=== PATIENT | female | born 1935 | race Caucasian/White ===

== ENCOUNTER 2016-09-11 14:18 | Inpatient (IN) ==
[2016-09-11] MEDS ORDERED: ZOFRAN 4 MG/2 ML IVP STA (14:34)
--- NOTE | 2016-09-11 14:42 | ED.PDOC ---
General ED Provider: Dr. KATHRYN CORDOVA JR Chief Complaint: Diarrhea Stated Complaint: states she has been having diarrhea and vomiting for 1 week. has tried lomotil and immodium without relief. gets nausea at night. last emesis was last night. [End]95.9 71 18 92% 131/77 htn thy chf afib pacemaker. tight aortic stenosis per dr martinez Time Seen by Physician: 14:35 Mode of Arrival: Walk-In Information Source: Patient Exam Limitations: No limitations Primary Care Provider: KEVIN MARTINEZ Nursing and Triage Documentation Reviewed and Agree: No Review of Systems - Review Of Systems Constitutional: Reports: Malaise Cardiac: Reports: Lightheadedness GI: Reports: Abdominal pain, Diarrhea, Nausea, Vomiting : Reports: No symptoms Musculoskeletal: Reports: No symptoms Skin: Reports: No symptoms Neurological: Reports: No symptoms Endocrine: Reports: No symptoms Hematologic/Lymphatic: Reports: No symptoms All Other Systems: Other Past Medical History - Past Medical History Previously Healthy: No Endocrine: Reports: None Cardiovascular: Reports: A-Fib Respiratory: Reports: None Hematological: Reports: Anemia Gastrointestinal: Reports: None Genitourinary: Reports: None Neuro/Psych: Reports: None Musculoskeletal: Reports: None Cancer: Reports: None Last Menstrual Period: none - Surgical History General Surgical History: Reports: Hysterectomy, Pacemaker, Orthopedic ( fracture neck with surgery), Other (Cataract surgery ) - Family History Family History: Reports: None - Social History Smoking Status: Never smoker Hx Substance Use: No Alcohol Screening: None Physical Exam - Physical Exam Appearance: Well-appearing Ill-appearing: Mild Pain Distress: Mild Eyes: SUMEET, EOMI, Conjunctiva clear ENT: Ears normal, Nose normal, Oropharynx normal Neck: Supple Respiratory: Airway patent, Breath sounds clear, Breath sounds equal, Respirations nonlabored Cardiovascular: RRR, Pulses normal, No rub, No murmur GI/: Soft, Nontender, No masses, Bowel sounds normal, No Organomegaly Musculoskeletal: Normal strength, ROM intact, No edema, No calf tenderness Skin: Warm, Dry, Normal color Neurological: Sensation intact, Motor intact, Reflexes intact, Cranial nerves intact, Alert, Oriented Psychiatric: Affect appropriate, Mood appropriate Interpretation - Radiology Interpretation Radiology Interpretation By: Radiologist Radiology Results: Negative Exam Interpreted: CT Scan (ABDOMEN) Critical Care Note - Critical Care Note Total Time (mins): 0 Course - Course Hematology/Chemistry: 09/11/16 14:45 09/11/16 14:45 Orders, Labs, Meds: Lab Review 09/11/16 09/11/16 14:45 15:17 WBC 11.65 H RBC 4.97 Hgb 15.1 Hct 44.0 MCV 88.5 MCH 30.4 MCHC 34.3 RDW Coeff of Megan 13.1 Plt Count 195 Immature Gran % (Auto) 0.2 Neut % (Auto) 63.5 Lymph % (Auto) 22.5 [place] % (Auto) 5.7 Eos % (Auto) 7.8 H Baso % (Auto) 0.3 Immature Gran # (Auto) 0.0 Neut # 7.4 H Lymph # 2.6 [place] # 0.7 Eos # 0.9 H Baso # 0.0 PT 25.5 H INR 2.48 Sodium 129 L Potassium 4.3 Chloride 97 L Carbon Dioxide 24 Anion Gap 12.3 BUN 13 Creatinine 1.00 Estimated GFR (MDRD) 53.00 BUN/Creatinine Ratio 13.00 Glucose 116 H Calcium 9.3 Total Bilirubin 1.71 H AST 25 ALT 10 L Alkaline Phosphatase 58 Total Protein 7.1 Albumin 3.7 Globulin 3.4 Albumin/Globulin Ratio 1.09 Amylase 42 Lipase 58 Urine Color Yellow Urine Clarity Slightly Urine pH 5.5 Ur Specific [place] 1.015 Urine Protein Negative Urine Glucose (UA) Negative Urine Ketones Negative Urine Blood 2+ Urine Nitrite Negative Urine Bilirubin Negative Urine Urobilinogen 0.2 Ur Leukocyte Esterase Negative Urine Microscopic RBC 2-5 Urine Microscopic WBC 5-10 Ur Squamous Epith Cells Not Reportable Urine Bacteria Trace Digoxin 0.99 L H. pylori IgG Antibody Positive Orders Category Date Time Status ADMIT PATIENT INPATIENT .TO [facility] [place] (NON-MONITORED ADMISSION 09/11/16 17: 42 Ordered BED) ACTIVITY .Early Mobilization for VTE Prevention CARE 09/11/16 17:42 Ordered C-DIFF MONITORING (NURSING) BID CARE 09/11/16 14:33 Active INTAKE & OUTPUT Q8HR CARE 09/11/16 17:42 Ordered VITAL SIGNS Q4HR CARE 09/11/16 17:42 Ordered CARDIAC DIET DIETARY 09/11/16 Breakfast Ordered ED IV/MEDIPORT/POWERPORT .ONCE EMERGENCY 09/11/16 14:33 Active AMYLASE Stat LAB 09/11/16 14:45 Completed C. DIFFICILE Stat LAB 09/11/16 14:33 Uncollected CBC W/ AUTO DIFF DAILY@0600 LAB 09/12/16 06:00 Ordered CBC W/ AUTO DIFF DAILY@0600 LAB 09/13/16 06:00 Ordered CBC W/ AUTO DIFF DAILY@0600 LAB 09/14/16 06:00 Ordered CBC W/ AUTO DIFF DAILY@0600 LAB 09/15/16 06:00 Ordered CBC W/ AUTO DIFF DAILY@0600 LAB 09/16/16 06:00 Ordered CBC W/ AUTO DIFF DAILY@0600 LAB 09/17/16 06:00 Ordered CBC W/ AUTO DIFF DAILY@0600 LAB 09/18/16 06:00 Ordered CBC W/ AUTO DIFF DAILY@0600 LAB 09/19/16 06:00 Ordered CBC W/ AUTO DIFF DAILY@0600 LAB 09/20/16 06:00 Ordered CBC W/ AUTO DIFF DAILY@0600 LAB 09/21/16 06:00 Ordered CBC W/ AUTO DIFF DAILY@0600 LAB 09/22/16 06:00 Ordered CBC W/ AUTO DIFF DAILY@0600 LAB 09/23/16 06:00 Ordered CBC W/ AUTO DIFF DAILY@0600 LAB 09/24/16 06:00 Ordered CBC W/ AUTO DIFF DAILY@0600 LAB 09/25/16 06:00 Ordered CBC W/ AUTO DIFF DAILY@0600 LAB 09/26/16 06:00 Ordered CBC W/ AUTO DIFF DAILY@0600 LAB 09/27/16 06:00 Ordered CBC W/ AUTO DIFF DAILY@0600 LAB 09/28/16 06:00 Ordered CBC W/ AUTO DIFF DAILY@0600 LAB 09/29/16 06:00 Ordered CBC W/ AUTO DIFF DAILY@0600 LAB 09/30/16 06:00 Ordered CBC W/ AUTO DIFF DAILY@0600 LAB 10/01/16 06:00 Ordered CBC W/ AUTO DIFF Stat LAB 09/11/16 14:45 Completed COMPREHENSIVE METABOLIC PANEL DAILY@0600 LAB 09/12/16 06:00 Ordered COMPREHENSIVE METABOLIC PANEL DAILY@0600 LAB 09/13/16 06:00 Ordered COMPREHENSIVE METABOLIC PANEL DAILY@0600 LAB 09/14/16 06:00 Ordered COMPREHENSIVE METABOLIC PANEL DAILY@0600 LAB 09/15/16 06:00 Ordered COMPREHENSIVE METABOLIC PANEL DAILY@0600 LAB 09/16/16 06:00 Ordered COMPREHENSIVE METABOLIC PANEL DAILY@0600 LAB 09/17/16 06:00 Ordered COMPREHENSIVE METABOLIC PANEL DAILY@0600 LAB 09/18/16 06:00 Ordered COMPREHENSIVE METABOLIC PANEL DAILY@0600 LAB 09/19/16 06:00 Ordered COMPREHENSIVE METABOLIC PANEL DAILY@0600 LAB 09/20/16 06:00 Ordered COMPREHENSIVE METABOLIC PANEL DAILY@0600 LAB 09/21/16 06:00 Ordered COMPREHENSIVE METABOLIC PANEL DAILY@0600 LAB 09/22/16 06:00 Ordered COMPREHENSIVE METABOLIC PANEL DAILY@0600 LAB 09/23/16 06:00 Ordered COMPREHENSIVE METABOLIC PANEL DAILY@0600 LAB 09/24/16 06:00 Ordered COMPREHENSIVE METABOLIC PANEL DAILY@0600 LAB 09/25/16 06:00 Ordered COMPREHENSIVE METABOLIC PANEL DAILY@0600 LAB 09/26/16 06:00 Ordered COMPREHENSIVE METABOLIC PANEL DAILY@0600 LAB 09/27/16 06:00 Ordered COMPREHENSIVE METABOLIC PANEL DAILY@0600 LAB 09/28/16 06:00 Ordered COMPREHENSIVE METABOLIC PANEL DAILY@0600 LAB 09/29/16 06:00 Ordered COMPREHENSIVE METABOLIC PANEL DAILY@0600 LAB 09/30/16 06:00 Ordered COMPREHENSIVE METABOLIC PANEL DAILY@0600 LAB 10/01/16 06:00 Ordered COMPREHENSIVE METABOLIC PANEL Stat LAB 09/11/16 14:45 Completed DIGOXIN Stat LAB 09/11/16 14:45 Completed H. PYLORI SCREEN Stat LAB 09/11/16 14:45 Completed LIPASE Stat LAB 09/11/16 14:45 Completed PT WITH INR DAILY@0600 LAB 09/12/16 06:00 Ordered PT WITH INR DAILY@0600 LAB 09/13/16 06:00 Ordered PT WITH INR DAILY@0600 LAB 09/14/16 06:00 Ordered PT WITH INR DAILY@0600 LAB 09/15/16 06:00 Ordered PT WITH INR DAILY@0600 LAB 09/16/16 06:00 Ordered PT WITH INR DAILY@0600 LAB 09/17/16 06:00 Ordered PT WITH INR DAILY@0600 LAB 09/18/16 06:00 Ordered PT WITH INR DAILY@0600 LAB 09/19/16 06:00 Ordered PT WITH INR DAILY@0600 LAB 09/20/16 06:00 Ordered PT WITH INR DAILY@0600 LAB 09/21/16 06:00 Ordered PT WITH INR DAILY@0600 LAB 09/22/16 06:00 Ordered PT WITH INR DAILY@0600 LAB 09/23/16 06:00 Ordered PT WITH INR DAILY@0600 LAB 09/24/16 06:00 Ordered PT WITH INR DAILY@0600 LAB 09/25/16 06:00 Ordered PT WITH INR DAILY@0600 LAB 09/26/16 06:00 Ordered PT WITH INR DAILY@0600 LAB 09/27/16 06:00 Ordered PT WITH INR DAILY@0600 LAB 09/28/16 06:00 Ordered PT WITH INR DAILY@0600 LAB 09/29/16 06:00 Ordered PT WITH INR DAILY@0600 LAB 09/30/16 06:00 Ordered PT WITH INR DAILY@0600 LAB 10/01/16 06:00 Ordered PT WITH INR Stat LAB 09/11/16 14:45 Completed URINALYSIS C & S IF INDICATED Stat LAB 09/11/16 15:17 Completed 0.9 % Sodium Chloride [Saline Flush] MEDS 09/11/16 14:33 Active 1 syr IVF PRN PRN Alprazolam [Xanax] MEDS 09/11/16 17:45 Ordered 1 mg PO BID PRN Digoxin MEDS 09/11/16 17:45 Ordered 250 mcg PO MOTUTHFRSA Diphenoxylate HCl/Atropine [Lomotil] MEDS 09/11/16 17:45 Ordered 2.5 mg PO Q8H PRN Furosemide [Lasix Tab] MEDS 09/12/16 06:30 Ordered 40 mg PO QDAC Hydrocodone Bit/Acetaminophen [Surrency 5-325] MEDS 09/11/16 17:45 Ordered 1 tab PO TID PRN Magnesium Carbonate/Al Hydrox [Gaviscon Es Tablet Chew] MEDS 09/11/16 17:45 Ordered 1 each PO DAILY PRN Meclizine HCl [Antivert] MEDS 09/11/16 17:45 Ordered 25 mg PO TID PRN Omeprazole [Prilosec] MEDS 09/12/16 06:30 Ordered 20 mg PO QDAC Ondansetron HCl/Pf [Zofran 4 mg/2 ml] MEDS 09/11/16 14:34 Discontinued 4 mg IVP ONCE STA Potassium Chloride [K-Dur] MEDS 09/12/16 09:00 Ordered 20 meq PO DAILY Propranolol HCl [Inderal] MEDS 09/11/16 21:00 Ordered 40 mg PO BID Propylthiouracil MEDS 09/12/16 09:00 Ordered 50 mg PO DAILY Sodium Chloride 0.9% [Sodium Chloride] 1,000 ml MEDS 09/11/16 16:46 Active IV 125 mls/hr Sodium Chloride 0.9% [Sodium Chloride] 1,000 ml MEDS 09/11/16 18:00 Ordered IV 75 mls/hr Valsartan [Diovan] MEDS 09/12/16 09:00 Ordered 80 mg PO DAILY Warfarin Sodium [Coumadin] MEDS 09/12/16 17:00 Ordered 3 mg PO QPM RESUSCITATION STATUS Routine OTHERS 09/11/16 17:[address] ABDOMEN/PELVIS WO CONTRAST Stat RADS 09/11/16 16:38 Completed Medications Generic Name Dose Route Start Last Admin Trade Name Freq PRN Reason Stop Dose Admin Acetaminophen/Hydrocodone Bitart 1 tab 09/11/16 17:45 Surrency 5-325 PO TID PRN PAIN Alprazolam 1 mg 09/11/16 17:45 Xanax PO BID PRN Anxiety Diphenoxylate HCl/Atropine tab 09/11/16 17:45 Lomotil PO Q8H PRN Diarrhea Furosemide 40 mg 09/12/16 06:30 Lasix Tab PO QDAC ISAURA Sodium Chloride 1,000 mls @ 125 mls/hr 09/11/16 16:46 09/11/16 16:50 Sodium Chloride IV 09/12/16 00:45 125 mls/hr .Q8H STA Administration Sodium Chloride 1,000 mls @ 75 mls/hr 09/11/16 18:00 Sodium Chloride IV .[id number] ISAURA Meclizine HCl 25 mg 09/11/16 17:45 Antivert PO TID PRN Vertigo Non-Formulary Medication 1 each 09/11/16 17:45 Magnesium Carbonate/Al Hydrox [Gaviscon Es Tablet Chew] PO DAILY PRN Heartburn Non-Formulary Medication 250 mcg 09/11/16 17:45 Digoxin PO MOTUTHFRSA ISAURA Omeprazole 20 mg 09/12/16 06:30 Prilosec PO QDAC SIAURA Potassium Chloride 20 meq 09/12/16 09:00 K-Dur PO DAILY ISAURA Propranolol HCl 40 mg 09/11/16 21:00 Inderal PO BID ISAURA Propylthiouracil 50 mg 09/12/16 09:00 Propylthiouracil PO DAILY ISAURA Sodium Chloride 1 syr 09/11/16 14:33 Saline Flush IVF PRN PRN To flush IV Valsartan 80 mg 09/12/16 09:00 Diovan PO DAILY ISAURA Warfarin Sodium 3 mg 09/12/16 17:00 Coumadin PO QPM ISAURA Discontinued Medications Generic Name Dose Route Start Last Admin Trade Name Freq PRN Reason Stop Dose Admin Ondansetron HCl 4 mg 09/11/16 14:34 09/11/16 15:34 Zofran 4 Mg/2 Ml IVP 09/11/16 14:35 Not Given ONCE STA Vital Signs: Temp Pulse Resp BP Pulse Ox 09/11/16 14:18 95.9 F L 71 18 131/77 92 L Departure - Departure Time of Disposition: 17:41 Disposition: ADMITTED INPATIENT Discharge Problem: Gastroenteritis, Dehydration, moderate Condition: Stable Pt referred to PMD for follow-up: Yes Allergies/Adverse Reactions: Allergies ciprofloxacin [From Cipro] Adverse Reaction (Verified 09/11/16 14:24) ciprofloxacin HCl [From Cipro] Adverse Reaction (Verified 09/11/16 14:24) propoxyphene HCl [From Darvon] Adverse Reaction (Verified 09/11/16 14:24) Home Medications: Ambulatory Orders Alprazolam [Xanax] 1 mg PO BID PRN 04/26/13 Digoxin [Lanoxin] 250 mcg PO MOTUTHFRSA 04/26/13 Furosemide [Lasix Tab] 40 mg PO QDAC 04/26/13 Potassium Chloride [K-Dur] 20 meq PO DAILY 04/26/13 Propranolol HCl [Inderal] 40 mg PO BID 04/26/13 Valsartan [Diovan] 80 mg PO DAILY 04/26/13 Propylthiouracil [Propylthiouracil] 50 mg PO DAILY 04/17/14 Hydrocodone/Acetaminophen [Surrency 5-325 Tablet] 1 tab PO TID PRN 05/23/14 Meclizine HCl [Antivert] 25 mg PO TID PRN #30 tablet 05/24/14 Warfarin Sodium [Coumadin] 3 mg PO QPM 07/17/16 Diphenoxylate HCl/Atropine [Lomotil] 2.5 mg PO Q8H PRN 09/11/16 Magnesium Carbonate/Al Hydrox [Gaviscon Es Tablet Chew] 1 each PO DAILY PRN Omeprazole [Prilosec] 20 mg PO QDAC 09/11/16 Ondansetron HCl [Zofran] 4 mg PO Q6H PRN 09/11/16
[2016-09-11 14:55] LABS: BASOPHILS % (AUTO) 0.3 % (0.0-3.0); EOSINOPHILS # (AUTO) 0.9 K/ul (0.0-0.7); EOSINOPHILS % (AUTO) 7.8 % (0.0-7.0); HEMOGLOBIN 15.1 g/dl (12.0-16.0); IMMATURE GRANULOCYTE % (AUTO) 0.2 % (0.0-5.0); LYMPHOCYTES # (AUTO) 2.6 K/uL (0.60-3.4); LYMPHOCYTES % (AUTO) 22.5 (10.0-50.0); MEAN CORPUSCULAR HEMOGLOBIN 30.4 pg (27.0-31.0); MEAN CORPUSCULAR HGB CONC 34.3 (31.8-35.4); MEAN CORPUSCULAR VOLUME 88.5 fl (81.0-99.0); MONOCYTES # (AUTO) 0.7 K/uL (0.4-2.0); MONOCYTES % (AUTO) 5.7 (0-10); NEUTROPHILS # (AUTO) 7.4 K/ul (2.0-6.9); NEUTROPHILS % (AUTO) 63.5; PLATELET COUNT 195 10^3/uL (140-440); RED BLOOD COUNT 4.97 10^6/ul (4.20-5.40); WHITE BLOOD COUNT 11.65 K/ul (4.6-10.2)
[2016-09-11 15:05] LABS: H. PYLORI ANTIBODY POSITIVE (NEGATIVE); H.PYLORI INTERNAL QC INTERNAL QC VALID
[2016-09-11 15:16] LABS: ALBUMIN 3.7 g/dL (3.4-5.0); ALBUMIN/GLOBULIN RATIO 1.09; ANION GAP 12.3; BILIRUBIN,TOTAL 1.71 mg/dL (0.00-1.20); CALCIUM 9.3 mg/dL (8.2-10.2); POTASSIUM 4.3 mmol/L (3.5-5.10); TOTAL PROTEIN 7.1 g/dL (5.8-8.1)
[2016-09-11 15:21] LABS: BILIRUBIN,URINE Negative (NEGATIVE); KETONES,URINE Negative (NEGATIVE); LEUKOCYTE ESTERASE ,URINE Negative (NEGATIVE); NITRITE,URINE Negative (NEGATIVE); PH,URINE 5.5 (5-9); PROTEIN,URINE Negative (NEGATIVE); URINE, BLOOD 2+ (NEGATIVE)
[2016-09-11 15:26] LABS: ADD URINE MICROSCOPIC YES
[2016-09-11 15:27] LABS: BACTERIA,URINE TRACE (NOT PRESENT)
[2016-09-11 16:15] LABS: PROTHROMBIN TIME 25.5 SEC (9.3-11.0)
[2016-09-11] MEDS ORDERED: SODIUM CHLORIDE 1,000 ML IV STA (16:46)
--- NOTE | 2016-09-11 17:37 | CT ---
EXAM: CT scan abdomen pelvis without contrast HISTORY: Abdominal pain COMPARISON: CT scan abdomen pelvis 02/12/2015 FINDINGS: Contiguous axial images obtained through the abdomen pelvis without contrast utilizing 5- mm collimation. Sagittal and coronal reconstructions were imaged and reviewed There is a stable le ft 10 mm nodule within the inferior lingular segment which merits continued follow-up. The heart is enlarged without pericardial effusion. There is calcification of the mitral valve annulus. There is a dual lead pacemaker. The gallbladder is moderately distended and contains dependent sludge or gallstones.. The liver, pancreas, spleen and adrenal glands have normal unenhanced CT appearance.. Scarring is noted about the upper pole right kidney. Nonobstructive renal calculi are noted bilate rally, largest of which measures8.8 mm on the right and the 10 mm on the left Dense atherosclerotic changes are seen involving the aorta without aneurysm formation. There has been prior hysterectomy .. There is no evidence of free fluid or inflammatory changes. There is lumbar levoscoliosis with extensive degenerative changes throughout the visualized thoracolumbar spine and bilateral hips IMPRESSION: Cardiomegaly without pericardial effusion. Scarring upper pole right kidney with bilateral nonobstructive nephrolithiasis. ASVD without aneurysm. Dilated gallbladder which contains dependent stones or sludge.. Ultrasound may be helpful to exclud e acute cholecystitis.
[2016-09-11] MEDS ORDERED: XANAX PO PRN (17:45)
[2016-09-11] MEDS ORDERED: AL HYDROX PO PRN (17:45)
[2016-09-11] MEDS ORDERED: ANTIVERT PO PRN (17:45)
[2016-09-11] MEDS ORDERED: LOMOTIL PO PRN (17:45)
[2016-09-11] MEDS ORDERED: MAGNESIUM CARBONATE PO PRN (17:45)
[2016-09-11] MEDS ORDERED: [UNRECOGNIZED DRUG - OTHER] PO PRN (17:45)
[2016-09-11] MEDS ORDERED: DIGOXIN 250 MCG PO SCH (17:45)
[2016-09-11] MEDS ORDERED: SODIUM CHLORIDE 1,000 ML IV SCH ×2 (18:00→19:29)
[2016-09-11] MEDS ORDERED: SODIUM CHLORIDE 200 ML IV STA (18:10)
[2016-09-11] MEDS ORDERED: LANOXIN ONE (21:45)
[2016-09-11] MEDS: INDERAL PO SCH (21:49)
[2016-09-11] MEDS ORDERED: COUMADIN PO STA (22:03)
[2016-09-12] MEDS: NORCO 5-325 PO PRN ×2 (03:18→14:39)
[2016-09-12] MEDS: LASIX TAB PO SCH ×2 (05:56→05:58)
[2016-09-12] MEDS ORDERED: PRILOSEC PO SCH (06:30)
[2016-09-12 06:32] LABS: BASOPHILS % (AUTO) 0.4 % (0.0-3.0); EOSINOPHILS # (AUTO) 0.7 K/ul (0.0-0.7); EOSINOPHILS % (AUTO) 9.5 % (0.0-7.0); HEMATOCRIT 40.1 % (37.0-47.0); HEMOGLOBIN 13.3 g/dl (12.0-16.0); IMMATURE GRANULOCYTE % (AUTO) 0.4 % (0.0-5.0); LYMPHOCYTES # (AUTO) 2.3 K/uL (0.60-3.4); LYMPHOCYTES % (AUTO) 29.9 (10.0-50.0); MEAN CORPUSCULAR HEMOGLOBIN 29.8 pg (27.0-31.0); MEAN CORPUSCULAR HGB CONC 33.2 (31.8-35.4); MEAN CORPUSCULAR VOLUME 89.7 fl (81.0-99.0); MONOCYTES # (AUTO) 0.4 K/uL (0.4-2.0); MONOCYTES % (AUTO) 5.8 (0-10); NEUTROPHILS # (AUTO) 4.1 K/ul (2.0-6.9); PLATELET COUNT 129 10^3/uL (140-440); RED BLOOD COUNT 4.47 10^6/ul (4.20-5.40); WHITE BLOOD COUNT 7.59 K/ul (4.6-10.2)
[2016-09-12 06:42] LABS: PROTHROMBIN TIME 27.4 SEC (9.3-11.0)
[2016-09-12 06:54] LABS: ALBUMIN 3.3 g/dL (3.4-5.0); ALBUMIN/GLOBULIN RATIO 1.22; ANION GAP 12.1; BILIRUBIN,TOTAL 1.61 mg/dL (0.00-1.20); CALCIUM 8.8 mg/dL (8.2-10.2); CREATININE 0.83 mg/dL (0.60-1.30); POTASSIUM 4.1 mmol/L (3.5-5.10)
[2016-09-12 06:55] LABS: BUN/CREATININE RATIO 13.25
[2016-09-12] MEDS ORDERED: LANOXIN PO SCH ×2 (07:17→09:00)
[2016-09-12] MEDS ORDERED: COUMADIN PO SCH ×2 (07:30→17:00)
[2016-09-12] MEDS ORDERED: K-DUR PO SCH (09:00)
[2016-09-12] MEDS ORDERED: PROPYLTHIOURACIL PO SCH (09:00)
[2016-09-12] MEDS ORDERED: DIOVAN PO SCH (09:00)
[2016-09-12] MEDS: INDERAL PO SCH (10:55)
[2016-09-12 18:40] VITALS: BP 113/89; TEMP 96.7
--- NOTE | 2016-09-14 13:41 | HP ---
DATE OF SERVICE: 09/11/16 CHIEF COMPLAINT: Diarrhea and vomiting. HISTORY OF PRESENT ILLNESS: This is a 81-year-old female who has been having diarrhea for one week, three to four times a day and vomiting for one week. Vomitus consisted of only food material so the patient was started on tea and crackers. Diarrhea watery, nonbloody, feeling weak. No abdominal pain, no fever or chills. She has been taking Lomotil and Imodium, did not help so came to the emergency room. While the patient was evaluated, Dr. Villagran came and saw the patient and thought the patient needed IV antibiotics and fluids. Dr. Tipton examined the patient. White count was 11.65. Sodium 129. Chloride 97. BUN and creatinine normal. CT of abdomen and pelvis was normal. At that time, the patient is admitted to the hospital for IV fluids and for acute gastroenteritis and dehydration. REVIEW OF SYSTEMS: CONSTITUTIONAL: Weakness, tiredness. No fever, no chills. HEENT: Normal. ENDOCRINE: No weight gain; no weight loss. CVS: No chest pain. No PND, no orthopnea. The patient has shortness of breath from severe critical aortic stenosis. RESPIRATORY: No cough, no congestion. No hemoptysis. GI: Diarrhea, vomiting. No abdominal pain. No melena. : No hematuria. No polyuria. MUSCULOSKELETAL: No joint swelling. PSYCHIATRIC: Not anxious. No depression. No suicidal thoughts. No homicidal thoughts. SKIN: Intact, no open lesions. PAST MEDICAL HISTORY: 1. Aortic stenosis, severe. 2. Heart cath status post stent. 3. Permanent pacemaker. 4. COPD. 5. Emphysema. 6. Osteoarthritis. 7. Anxiety. PAST SURGICAL HISTORY: 1. Hysterectomy 2. Cataract surgery 3. Rotator cuff repair 4. Left elbow broken 5. Ovarian cyst removed PERSONAL HISTORY: Quit smoking at age 52. No alcohol or drugs. Independent of ADLs. FAMILY HISTORY: Significant for heart problems and diabetes. MEDICATIONS: (Home) 1. Diovan 2. Xanas 3. Lasix 4. Potassium 5. Inderal 6. Lanoxin 7. Propylthiouracil 8. [place] 9. Antivert 10. Coumadin 11. Prilosec 12. Lomotil 13. Zofran 14. Magnesium Carbonate ALLERGIES: CIPRO, PROPOXYPHENE PHYSICAL EXAMINATION: V/S: BP 131/77, respiratory rate 18, heart rate 71, saturation 92%, temperature 95.9. HEENT: Atraumatic, normocephalic. Mucosa dry. NECK: Supple. No JVD, no bruit. No lymphadenopathy. No thyromegaly. HEART: Systolic murmur positive. S1, S2 normal. No ascites. LUNGS: Decreased entry. Clear to auscultation. No rales or rhonchi. ABDOMEN: Soft, nontender. Bowel sounds are active. No CVA tenderness. No rigidity or guarding. EXTREMITIES: No cyanosis, clubbing or pedal edema. MUSCULOSKELETAL: Normal joints, no swelling. NEUROLOGIC: The patient is awake, alert, oriented times three. SKIN: Intact; no open lesions. LYMPHATIC: No lymph nodes palpable. LABS: White count 11.65, hemoglobin 15.1, hematocrit 44.0, platelet count 195. PT/INR 25.5 and INR 2.48. Sodium 129, potassium 4.3, chloride 97, bicarb 13, creatinine 1.0, glucose 116. Total bilirubin 1.71. Urine 2+ blood. Digoxin level 0.199. H. Pylori positive. ASSESSMENT: 1. ACUTE GASTROENTERITIS, MOSTLY VIRAL WITH HISTORY OF SEVERE AORTIC STENOSIS 2. HYPERTENSION 3. DYSLIPIDEMIA 4. PERMANENT PACEMAKER 5. ATRIAL FIBRILLATION ON COUMADIN PLAN: 1. Admit the patient to the regular floor. 2. Diet - cardiac diet. 3. Activity - as tolerated. 4. IV fluids at 40 mL/hr. TIME SPENT: More than 60 minutes today. MTDD
--- NOTE | 2016-09-15 15:06 | PN ---
DATE OF SERVICE: 09/12/16 SUBJECTIVE: The patient was admitted with the nausea and vomiting. Since admission the patient had no nausea or vomiting. The patient is tolerating the regular diet fine. Ready to go home. I did tell her that if the patient doesn't have any vomiting or diarrhea by evening the patient can go home. REVIEW OF SYSTEMS: CONSTITUTIONAL: No fever, no chills. HEENT: Normal. ENDOCRINE: No weight gain, no weight loss. CVS: No angina symptoms. No CHF symptoms. No palpitations. No atypical chest pain for CAD. Shortness of breath is stable. No PND, no orthopnea. RESPIRATORY: No cough, no hemoptysis. GI: No nausea, no vomiting. No abdominal pain. : No hematuria. No polyuria. MUSCULOSKELETAL:. No joint swelling. PSYCHIATRIC: Not anxious. No depression. No suicidal thoughts. No homicidal thoughts. SKIN: Intact. No rash. PHYSICAL EXAMINATION: V/S: Blood pressure 117/68, respiratory rate 16, heart rate 67 and temperature 97.4, HEENT: Normocephalic, atraumatic. Ears, eyes, nose and throat normal. NECK: Supple. No JVD, no carotid bruit. No lymphadenopathy. LUNGS: Clear to auscultation. No rales or rhonchi. HEART: S1, S2 normal. No S3. Systolic murmur positive., gallop or regurgitation. ABDOMEN: Soft, nontender. Bowel sounds active. No rigidity. No rebound or guarding. No CVA tenderness. EXTREMITIES: No clubbing, cyanosis or pedal edema. MUSCULOSKELETAL: No joint swelling. NEUROLOGIC: Awake, alert, oriented times three. No focal deficit. LYMPHATIC: No lymph nodes palpable. SKIN: Intact. LABS: WBC 7.59, hgb 13.3, hct 40.1, plt count 129, sodium 133, potassium 4.1m chloride 103, bicarb 22, BUN 11, creatinine 0.83 and bilirubin is 1.61 which is steady. ASSESSMENT: 1. Acute gastroenteritis 2. History of severe aortic stenosis 3. Permanent pacemaker 4. Coronary artery disease 5. Hypertension 6. Dyslipidemia PLAN: 1. Regular diet 2. Activity as tolerated 3. I&O's Will follow the patient by evening. If the patient is stable can go home. TIME SPENT: More than 30 minutes MTDD
--- NOTE | 2016-09-17 14:31 | DS ---
DATE OF SERVICE: 09/12/16 FINAL DIAGNOSIS: 1. ACUTE VIRAL GASTROENTERITIS, WHICH HAS RESOLVED 2. DEHYDRATION 3. HISTORY OF SEVERE AORTIC STENOSIS 4. HYPERTENSION 5. PERMANENT PACEMAKER 6. CONGESTIVE HEART FAILURE 7. DYSLIPIDEMIA 8. HYSTERECTOMY 9. OSTEOARTHRITIS PLAN: 1. Discharge the patient home. 2. Continue taking the Zofran and Imodium prn. 3. Please be on a clear liquid diet and a soft diet for two to three days. 4. Resume the rest of the home medications. HOME MEDICATIONS: Diovan 80 mg daily Xanax 0.5 mg twice daily prn Lasix 40 mg three times per week K-Dur 20 mEq daily Inderal 40 mg twice daily Lanoxin 250 mcg Wednesday, Wednesday, , Wednesday and Wednesday Propylthiouracil 50 mg daily Hydrocodone/Acetaminophen 5/325 mg three times daily prn Meclizine 23 mg three times daily prn Coumadin 3 mg daily Prilosec 20 mg daily Lomotil 2.5 mg every 8 hours prn Zofran 4 mg every 6 hours prn Gaviscon ES chew one daily prn DISEASE SPECIFIC EDUCATION: About diarrhea, dehydration and gastroenteritis was discussed. HOSPITAL COURSE: Irene Farrell who is a 81 year old female with severe aortic stenosis came to the emergency room having diarrhea and vomiting for one week. She was seen by Dr. Tipton. Sodium was 129, chloride 97, white count was 11.65, afebrile. CT of the abdomen and pelvis was negative. Dr. Villagran saw the patient in the emergency room and ordered the admission for the IV fluids. She was admitted with IV fluids and Zofran. The patient was feeling better and did not have any nausea or vomiting during the hospital stay. By the next day, today, the patient wanted to go home and as the patient did not have any vomiting and had two episodes of scanty diarrhea per nurse, Sherry and the patient blames it on having veggies with her diet. Otherwise, she was feeling good and wanted to go home. The patient has the Zofran and Imodium at home and she can take them. Otherwise, no other problems at the given time with the patient. Time spent with the patient is more than 40 minutes today. OLLIE
== END 2016-09-12 19:55 | disposition home or self-care (01) | DRG 392 ==
LOC: ED 14:18 → MEDSURG B 18:14
PROVIDERS: ADMIT Emergency Medicine; ATTEND Emergency Medicine
DX: A08.4 Viral intestinal infection, unspecified (principal); E86.0 Dehydration; I35.0 Nonrheumatic aortic (valve) stenosis; I48.91 Unspecified atrial fibrillation; I25.10 Atherosclerotic heart disease of native coronary artery without angina pectoris; I10 Essential (primary) hypertension; E78.5 Hyperlipidemia, unspecified; Z79.01 Long term (current) use of anticoagulants; Z79.899 Other long term (current) drug therapy; Z95.0 Presence of cardiac pacemaker; K52.9 Noninfective gastroenteritis and colitis, unspecified
CPT/HCPCS: 36415; 80053; 80162; 81001; 82150; 83690; 85025; 85610; 86677; 96360; 99284

== ENCOUNTER 2016-09-24 15:03 | Inpatient (IN) ==
[2016-09-24 15:55] VITALS: BMI 27.3
[2016-09-24] MEDS ORDERED: ZOFRAN 4 MG/2 ML IVP PRN (15:59)
[2016-09-24] MEDS ORDERED: MAGNESIUM CARBONATE PO PRN (16:17)
[2016-09-24] MEDS ORDERED: [UNRECOGNIZED DRUG - OTHER] PO PRN (16:17)
[2016-09-24] MEDS ORDERED: AL HYDROX PO PRN (16:17)
[2016-09-24] MEDS ORDERED: ANTIVERT PO PRN (16:17)
[2016-09-24] MEDS ORDERED: DIGOXIN 250 MCG PO SCH (16:30)
[2016-09-24 16:31] LABS: BASOPHILS # (AUTO) 0.1 K/uL (0-0.2); BASOPHILS % (AUTO) 0.6 % (0.0-3.0); EOSINOPHILS # (AUTO) 0.6 K/ul (0.0-0.7); EOSINOPHILS % (AUTO) 4.7 % (0.0-7.0); HEMATOCRIT 43.7 % (37.0-47.0); HEMOGLOBIN 15.5 g/dl (12.0-16.0); IMMATURE GRANULOCYTE % (AUTO) 0.4 % (0.0-5.0); LYMPHOCYTES # (AUTO) 3.1 K/uL (0.60-3.4); LYMPHOCYTES % (AUTO) 23.7 (10.0-50.0); MEAN CORPUSCULAR HGB CONC 35.5 (31.8-35.4); MEAN CORPUSCULAR VOLUME 87.4 fl (81.0-99.0); MONOCYTES # (AUTO) 0.9 K/uL (0.4-2.0); MONOCYTES % (AUTO) 6.8 (0-10); NEUTROPHILS # (AUTO) 8.5 K/ul (2.0-6.9); NEUTROPHILS % (AUTO) 63.8; PLATELET COUNT 163 10^3/uL (140-440); WHITE BLOOD COUNT 13.27 K/ul (4.6-10.2)
[2016-09-24] MEDS: LOMOTIL PO SCH ×3 (16:32→20:15)
[2016-09-24] MEDS: PROTONIX IV 40 MG in SODIUM CHLORIDE 100 ML IV SCH (16:34)
[2016-09-24] MEDS ORDERED: MYLANTA SUSP PO PRN (16:34)
[2016-09-24] MEDS: XANAX PO SCH ×2 (16:35→20:15)
[2016-09-24] MEDS: DEXTROSE 5%-1/2NS IV SOLUTION 1,000 ML IV SCH (16:35)
[2016-09-24 16:59] LABS: PROTHROMBIN TIME 20.5 SEC (9.3-11.0)
[2016-09-24] MEDS: NORCO 5-325 PO PRN (17:09)
[2016-09-24 17:12] LABS: ALBUMIN 3.5 g/dL (3.4-5.0); ANION GAP 16.2; BILIRUBIN,TOTAL 3.14 mg/dL (0.00-1.20); BUN/CREATININE RATIO 34.73; CALCIUM 9.3 mg/dL (8.2-10.2); CREATININE 0.95 mg/dL (0.60-1.30); DIGOXIN 1.04 ng/mL (1.00-2.00); POTASSIUM 4.2 mmol/L (3.5-5.10)
[2016-09-24] MEDS: COUMADIN PO SCH (17:58)
[2016-09-24] MEDS: INDERAL PO SCH (20:14)
[2016-09-25 02:34] LABS: ADD URINE MICROSCOPIC YES; BILIRUBIN,URINE 1+ (NEGATIVE); KETONES,URINE Negative (NEGATIVE); LEUKOCYTE ESTERASE ,URINE Negative (NEGATIVE); NITRITE,URINE Negative (NEGATIVE); PH,URINE 5.5 (5-9); PROTEIN,URINE Trace (NEGATIVE); URINE, BLOOD 3+ (NEGATIVE)
[2016-09-25 02:43] LABS: BACTERIA,URINE 2+ (NOT PRESENT)
[2016-09-25] MEDS: DEXTROSE 5%-1/2NS IV SOLUTION 1,000 ML IV SCH ×2 (05:15→18:19)
[2016-09-25] MEDS: LASIX TAB PO SCH ×2 (05:32→08:27)
[2016-09-25 07:54] LABS: BASOPHILS # (AUTO) 0.1 K/uL (0-0.2); BASOPHILS % (AUTO) 0.6 % (0.0-3.0); EOSINOPHILS # (AUTO) 1.2 K/ul (0.0-0.7); EOSINOPHILS % (AUTO) 11.9 % (0.0-7.0); HEMATOCRIT 35.7 % (37.0-47.0); HEMOGLOBIN 12.6 g/dl (12.0-16.0); IMMATURE GRANULOCYTE % (AUTO) 0.3 % (0.0-5.0); LYMPHOCYTES # (AUTO) 2.9 K/uL (0.60-3.4); LYMPHOCYTES % (AUTO) 28.9 (10.0-50.0); MEAN CORPUSCULAR HEMOGLOBIN 31.1 pg (27.0-31.0); MEAN CORPUSCULAR HGB CONC 35.3 (31.8-35.4); MEAN CORPUSCULAR VOLUME 88.1 fl (81.0-99.0); MONOCYTES # (AUTO) 0.7 K/uL (0.4-2.0); MONOCYTES % (AUTO) 6.6 (0-10); NEUTROPHILS # (AUTO) 5.2 K/ul (2.0-6.9); NEUTROPHILS % (AUTO) 51.7; PLATELET COUNT 126 10^3/uL (140-440); RED BLOOD COUNT 4.05 10^6/ul (4.20-5.40)
[2016-09-25 07:57] LABS: PROTHROMBIN TIME 22.9 SEC (9.3-11.0)
[2016-09-25 08:12] LABS: ALBUMIN 2.8 g/dL (3.4-5.0); ANION GAP 10.6; BILIRUBIN,TOTAL 1.7 mg/dL (0.00-1.20); BUN/CREATININE RATIO 37.77; CALCIUM 8.1 mg/dL (8.2-10.2); CREATININE 0.9 mg/dL (0.60-1.30); POTASSIUM 3.6 mmol/L (3.5-5.10); TOTAL PROTEIN 5.6 g/dL (5.8-8.1)
[2016-09-25] MEDS: NON-FORMULARY MEDICATION (Potassium Chloride [K-Dur] 20 MEQ) PO SCH ×22 (08:26)
[2016-09-25] MEDS: INDERAL PO SCH ×2 (08:29→21:25)
[2016-09-25] MEDS: PROPYLTHIOURACIL PO SCH (08:31)
--- NOTE | 2016-09-25 08:50 | DI ---
EXAM: Chest two views HISTORY: Cough COMPARISON: 03/16/2016 TECHNIQUE: Two views of the chest were performed FINDINGS: There is left-sided cardiac pacer. No airspace consolidation. There is chronic coarsening of the interstitial markings. There is left basilar nodular density. There is no pleural effusion o r pneumothorax. The heart is mildly enlarged, unchanged. There are mitral annular calcifications. The mediastinal contour is normal, noting atherosclerosis. There are no acute abnormalities of the bones. IMPRESSION: 1. Chronic coarsening of the interstitial markings. It would be difficult to exclude mild pulmonar y vascular congestion. No airspace consolidation. 2. Left basilar nodular density likely corresponds with pulmonary nodule described on prior CTs.
[2016-09-25] MEDS: LOMOTIL PO SCH ×3 (09:03→21:24)
[2016-09-25] MEDS: DIOVAN PO SCH (09:04)
[2016-09-25] MEDS: XANAX PO SCH ×2 (09:05→21:25)
[2016-09-25] MEDS: PROTONIX IV 40 MG in SODIUM CHLORIDE 100 ML IV SCH (09:07)
[2016-09-25] MEDS: LANOXIN PO SCH (09:08)
[2016-09-25] MEDS: NORCO 5-325 PO PRN ×3 (09:19→21:30)
--- NOTE | 2016-09-25 09:22 | US ---
EXAM: Abdominal ultrasound limited HISTORY: Abdominal pain/gastroenteritis COMPARISON: CT abdomen pelvis 09/11/2016 TECHNIQUE: Sonographic and limited Doppler evaluation of the right upper quadrant was performed. FINDINGS: The liver is heterogeneous in echogenicity and measures enlarged at 18.7 cm. The portal vein is patent. The gallbladder demonstrates layering stones and sludge with no Carrillo's sign. The gallbladder wall measures mildly enlarged at 0.5. Common bile duct is unremarkable and measures 0.5 cm in diameter. The pancreas is not identified due to overlying bowel gas. Right kidney is incomp letely evaluated due to bowel gas, but measures 8.2 x 4.2 x 3.7 cm with cortical thickness of 1 cm. IMPRESSION: 1. Heterogeneous appearance of the liver which measures mildly enlarged may represent hepatic disea se/process versus atypical hepatic steatosis. 2. Layering stones and sludge without pericholecystic fluid with gallbladder wall at upper limit of normal. This is nonspecific and may be related to multiple etiologies including subacute cholecyst itis.
--- NOTE | 2016-09-25 09:50 | HP ---
DATE OF SERVICE: 09/24/16 REASON FOR HOSPITALIZATION/HISTORY OF PRESENT ILLNESS: Three days gastroenteritis type symptoms. Even water goes thru. No nausea for 1 1/2 days. Zofran helped. Diarrhea-liquid 6 to 10 times a day. Abdominal cramping off and on bilateral periumbilical area. REVIEW OF SYSTEMS: CONSTITUTIONAL: No fever, Fatigue. HEENT: No sinus drainage, no sore throat. RESPIRATORY: No cough, no congestion. CARDIOVASCULAR: No atypical chest pain for coronary artery disease. No angina , CHF symptoms, palpitations or shortness of breath. GASTROINTESTINAL: No melena. Abdominal pain. No GERD. GENITOURINARY: No hematuria, no prostatism, no polyuria. DIRECTOR FOOD SAFETY: No blackout, no dizziness, no headache, no double vision. MUSCULOSKELETAL: Osteoarthritis pain, no joint swelling. ENDOCRINE: Weight loss, no weight gain. SKIN: Not dry, no rash. PSYCHIATRIC: Anxious, no depression, no suicidal thoughts, no homicidal thoughts. SOCIAL HISTORY: Marital Status: . Lives alone. Five children; 4 alive and one . Alcohol Usage: No. Tobacco Usage: No. FAMILY HISTORY: Father , Mother decreased, one brother and one sister alive. MEDICAL AND SURGICAL HISTORY: Pacemaker Fracture C- Spine Neck Surgery Hysterectomy Cataract Obesity COPD Hypertension Atrial fibrillation Hypothyroidism Aortic stenosis Gallbladder dysfunction MEDICATIONS: Diovan 80mg PO daily Xanax 0.5mg PO twice a day PRN Lasix 40mg PO MOWEFR K-Dur 20meq PO daily Inderal 40mg PO twice a day Lanoxin 250mcg PO MOTETHFRSA Propylthiouracil 50mg PO daily Hurley 5-325 PO three times a day PRN Antivert 25mg PO three times a day PRN Coumadin 3mg PO daily Prilosec 20mg QDAC Zofran 4mg PO Q 6 hours PRN Gaviscon ES tablet chew one each PO daily PRN Lotrisone cream apply to the affected and surrounding areas of skin Fish oil take two tablets PO twice a day Calcium PO daily ALLERGIES: Cipro Darvon PHYSICAL EXAMINATION: V/S: pulse 90, blood pressure 118/60, temperature 98.8 and pulse ox 97%. GENERAL APPEARANCE: Oriented times three. HEENT: Normal. NECK: No JVP, no bruits. RESPIRATORY: Lungs are clear. CARDIOVASCULAR: S1, S2, no S3, III/ systolic murmur. No cyanosis, clubbing. No ascites. GI/ABDOMEN: No tenderness. Bowel sounds are active. EXTREMITIES: edema, pulses +1, equal. DIRECTOR FOOD SAFETY: Deep tendon reflexes, sensory, motor and gait all normal. RECTAL/PELVIC/PROSTATE: . SKIN: Dry. Skin Turgor is normal. ASSESSMENT: 1. Acute gastroenteritis/Dehydrations 2. Obesity 3. COPD 4. Hypertension 5. Atrial fibrillation 6. Hyperthyroidism 7. Aortic stenosis 8. Pacemaker 9. Neck surgery with fall 10. Gallbladder dysfunction PLAN: 1. Admit 2. Diet-soft and avoid milk products 3. Ultrasound of RUQ and Biliary tree 4. 1,000 cc D5 1/2 normal saline 12 hourly 5. Daily INR 6. Zofran 4mg IV now and 6 hours for nausea 7. Protonix 40mg IV now and Q 24 hours 8. CBC CMP now and daily AM 9. Hurley 5-325 PO four times a day PRN for pain 10. Xanax 0.5mg PO now and twice a day 11. Lomotil 2.5mg PO now and three times a day x2 days. 12. Stool for C-Diff and culture and sensitivity 13. Lanoxin Level 14. T4 and TSH, Serum amylase and Lipids. 15. Chest x-ray/ EKG today 16. Telemetry 17. Urinalysis 18. Continue all home medications. TIME SPENT: More than 70 minutes. MTDD
--- NOTE | 2016-09-25 12:52 | PCM.PROG ---
Attending Provider: ATTENDING PROVIDER: Dr. KEVIN DRAKE DATE OF SERVICE: 09/25/16 SUBJECTIVE: This 81 year old WHITE/ F was hospitalized 09/24/16. The patient is admitted with gastroenteritis, acute dehydration and abdominal cramping. The patient is feeling better. Appetite has improved. No fever, no chills. No nausea or vomiting. Diarrhea is under control. REVIEW OF SYSTEMS: CONSTITUTIONAL: No night sweats. No fatigue, malaise, lethargy. No fever or chills. HEENT: Eyes: No visual changes. No eye pain. No eye discharge. ENT: No runny nose. No epistaxis. No sinus pain. No odynophagia. No congestion. RESPIRATORY: No cough, no congestion. No hemoptysis. CARDIOVASCULAR: No angina symptoms. No CHF symptoms at the present time. No atypical chest pain for CAD. No palpitations. No shortness of breath. GASTROINTESTINAL: Appetite has improved. No abdominal pain. No nausea or vomiting. Diarrhea is under control. No constipation. No hematemesis. No hematochezia. GENITOURINARY: No urgency. No frequency. No dysuria. No hematuria. No obstructive symptoms. No discharge. No pain. No significant abnormal bleeding. MUSCULOSKELETAL: No musculoskeletal pain; no joint swelling. NEUROLOGICAL: Awake, alert, oriented to time, place and person. No headache. No neck pain. No syncope. No seizures. No dizziness. PSYCHIATRIC: Not anxious. No depression. No suicidal thoughts. No homicidal thoughts. SKIN: No rash. No lesions. No wounds. ENDOCRINE: No unexplained weight loss. No weight gain. HEMATOLOGIC/LYMPHATIC: No anemia. No purpura. No petechiae. No prolonged or excessive bleeding. No palpable lymph nodes. PHYSICAL EXAMINATION: GENERAL: The patient is awake, alert and oriented, lying in bed in no distress. VITAL SIGNS: Temperature 97.4 F, Pulse 64, Respiratory Rate 16, BP 88/52, Pulse Ox 98% HEENT: Head normocephalic, atraumatic. Eyes: Extraocular muscles are intact. Pupils are equal, round and reactive to light and accommodation. Ears: No lesions. Nose appeared normal. Throat: No exudate or erythema. NECK: Supple. No JVD, no carotid bruit. No lymphadenopathy or thyromegaly. LUNGS: Clear to auscultation. Percussion note normal. Chest symmetrical. HEART: S1, S2. Loud systolic murmur is present. No cyanosis or clubbing. No ascites. Pulses: Dorsalis pedis and posterior tibial pulses +1 to +2 both sides. ABDOMEN: Soft. Non-tender. Bowel sounds active. No CVA tenderness. No mass felt. EXTREMITIES: No edema. Full range of motion of all extremities, equal. NEUROLOGIC: No focal deficit. Cranial nerves II through XII are grossly intact. No headache, no double vision or headache. SKIN: Dry. Intact. Turgor-better LYMPHATIC: No palpable lymph nodes/no lymphedema. MUSCULOSKELETAL: Normal joints with no swelling. Muscle tone is normal. LAB REVIEW: 09/24/16 16:25 09/24/16 16:25 09/25/16 02:15: Urine Color Stephani, Urine Clarity Clear, Urine pH 5.5, Ur Specific [place] 1.015, Urine Protein Trace, Urine Glucose (UA) Negative, Urine Ketones Negative, Urine Blood 3+, Urine Nitrite Negative, Urine Bilirubin 1+, Urine Urobilinogen 1.0, Ur Leukocyte Esterase Negative, Urine Microscopic RBC 20 -30, Urine Microscopic WBC 0-2, Ur Squamous Epith Cells 2-5, Urine Bacteria 2+ 09/24/16 16:25: WBC 13.27 H, RBC 5.00, Hgb 15.5, Hct 43.7, MCV 87.4, MCH 31.0, MCHC 35.5 H, RDW Coeff of Megan 13.7, Plt Count 163, Immature Gran % (Auto) 0.4, Neut % (Auto) 63.8, Lymph % (Auto) 23.7, [place] % (Auto) 6.8, Eos % (Auto) 4.7, Baso % (Auto) 0.6, Immature Gran # (Auto) 0.1, Neut # 8.5 H, Lymph # 3.1, [place] # 0.9, Eos # 0.6, Baso # 0.1, PT 20.5 H, INR 1.99, Sodium 134 L, Potassium 4.2, Chloride 96 L, Carbon Dioxide 26, Anion Gap 16.2, BUN 33 H, Creatinine 0.95, Estimated GFR (MDRD) 57.00, BUN/Creatinine Ratio 34.73, Glucose 81 L, Calcium 9.3, Total Bilirubin 3.14 H, AST 41 H, ALT 16, Alkaline Phosphatase 59, Total Protein 7.0, Albumin 3.5, Globulin 3.5, Albumin/Globulin Ratio 1.00, Amylase 60 , Lipase 61, TSH 2.080, Free T4 1.25 H, Digoxin 1.04 ASSESSMENT: 1. Acute gastroenteritis/dehydration likely viral. 2. Stool cultures pending. 3. Continue IV fluids. 4. Symptomatic treatment. 5. The patient has cholelithiasis but doesn't seem to be the active problem; she doesn't want anything done about it. 6. Severe aortic stenosis but does not want any further workup or referral. At the present time, the patient has no symptoms of CHF and/or fluid overload. PLAN: Plan and coordination of the patient's care discussed in the presence of Electro Optical Engineer and nurse. CONDITION: STABLE SCRIBED BY: SHERYL HENSON Paper Cutter scribed while in presence of service performed by Dr. KEVIN DRAKE on 09/25/16 ([id number])
[2016-09-25] MEDS: COUMADIN PO SCH (16:34)
[2016-09-26] MEDS: DEXTROSE 5%-1/2NS IV SOLUTION 1,000 ML IV SCH (06:46)
[2016-09-26 07:32] LABS: BASOPHILS % (AUTO) 0.5 % (0.0-3.0); EOSINOPHILS # (AUTO) 1.1 K/ul (0.0-0.7); EOSINOPHILS % (AUTO) 13.9 % (0.0-7.0); HEMATOCRIT 33.9 % (37.0-47.0); HEMOGLOBIN 11.8 g/dl (12.0-16.0); IMMATURE GRANULOCYTE % (AUTO) 0.4 % (0.0-5.0); LYMPHOCYTES # (AUTO) 2.1 K/uL (0.60-3.4); MEAN CORPUSCULAR HEMOGLOBIN 31.2 pg (27.0-31.0); MEAN CORPUSCULAR HGB CONC 34.8 (31.8-35.4); MEAN CORPUSCULAR VOLUME 89.7 fl (81.0-99.0); MONOCYTES # (AUTO) 0.5 K/uL (0.4-2.0); MONOCYTES % (AUTO) 6.8 (0-10); NEUTROPHILS # (AUTO) 3.8 K/ul (2.0-6.9); NEUTROPHILS % (AUTO) 50.4; PLATELET COUNT 113 10^3/uL (140-440); RED BLOOD COUNT 3.78 10^6/ul (4.20-5.40)
[2016-09-26 07:46] LABS: PROTHROMBIN TIME 29.4 SEC (9.3-11.0)
[2016-09-26 08:09] LABS: ALBUMIN 2.9 g/dL (3.4-5.0); ALBUMIN/GLOBULIN RATIO 1.04; CALCIUM 8.2 mg/dL (8.2-10.2); POTASSIUM 4.2 mmol/L (3.5-5.10); TOTAL PROTEIN 5.7 g/dL (5.8-8.1)
[2016-09-26 08:10] LABS: ANION GAP 13.2; BILIRUBIN,TOTAL 1.09 mg/dL (0.00-1.20)
[2016-09-26] MEDS: NORCO 5-325 PO PRN ×2 (08:54→21:10)
[2016-09-26] MEDS: DIOVAN PO SCH (08:54)
[2016-09-26] MEDS: LANOXIN PO SCH (08:54)
[2016-09-26] MEDS: INDERAL PO SCH ×2 (08:54→21:09)
[2016-09-26] MEDS: PROPYLTHIOURACIL PO SCH (08:56)
[2016-09-26] MEDS: PROTONIX IV 40 MG in SODIUM CHLORIDE 100 ML IV SCH (08:56)
[2016-09-26] MEDS: NON-FORMULARY MEDICATION (Potassium Chloride [K-Dur] 20 MEQ) PO SCH ×44 (08:56→09:04)
[2016-09-26] MEDS: XANAX PO SCH ×2 (08:57→21:10)
[2016-09-26] MEDS: TORADOL IVP SCH (12:45)
[2016-09-26] MEDS: COUMADIN PO SCH (17:28)
[2016-09-27] MEDS: TORADOL IVP SCH ×3 (02:27→20:24)
[2016-09-27 07:45] LABS: BASOPHILS % (AUTO) 0.5 % (0.0-3.0); EOSINOPHILS # (AUTO) 1.5 K/ul (0.0-0.7); EOSINOPHILS % (AUTO) 19.8 % (0.0-7.0); HEMATOCRIT 34.3 % (37.0-47.0); HEMOGLOBIN 11.8 g/dl (12.0-16.0); IMMATURE GRANULOCYTE % (AUTO) 0.3 % (0.0-5.0); LYMPHOCYTES # (AUTO) 1.7 K/uL (0.60-3.4); LYMPHOCYTES % (AUTO) 23.5 (10.0-50.0); MEAN CORPUSCULAR HEMOGLOBIN 31.1 pg (27.0-31.0); MEAN CORPUSCULAR HGB CONC 34.4 (31.8-35.4); MEAN CORPUSCULAR VOLUME 90.3 fl (81.0-99.0); MONOCYTES # (AUTO) 0.3 K/uL (0.4-2.0); MONOCYTES % (AUTO) 4.5 (0-10); NEUTROPHILS # (AUTO) 3.8 K/ul (2.0-6.9); NEUTROPHILS % (AUTO) 51.4; PLATELET COUNT 121 10^3/uL (140-440); WHITE BLOOD COUNT 7.33 K/ul (4.6-10.2)
[2016-09-27 07:58] LABS: PROTHROMBIN TIME 31.8 SEC (9.3-11.0)
[2016-09-27 08:03] LABS: ALBUMIN 2.8 g/dL (3.4-5.0); CALCIUM 8.1 mg/dL (8.2-10.2); POTASSIUM 4.7 mmol/L (3.5-5.10); TOTAL PROTEIN 5.7 g/dL (5.8-8.1)
[2016-09-27 08:04] LABS: ALBUMIN/GLOBULIN RATIO 0.97; ANION GAP 10.7; BILIRUBIN,TOTAL 1.05 mg/dL (0.00-1.20); BUN/CREATININE RATIO 28.33; CREATININE 1.2 mg/dL (0.60-1.30)
[2016-09-27] MEDS ORDERED: TORADOL IVP SCH (09:00)
[2016-09-27] MEDS: PROPYLTHIOURACIL PO SCH (09:43)
[2016-09-27] MEDS: NON-FORMULARY MEDICATION (Potassium Chloride [K-Dur] 20 MEQ) PO SCH ×22 (09:43)
[2016-09-27] MEDS: INDERAL PO SCH ×2 (09:43→20:48)
[2016-09-27] MEDS: XANAX PO SCH ×2 (09:43→20:49)
[2016-09-27] MEDS: DIOVAN PO SCH (09:43)
[2016-09-27] MEDS: NORCO 5-325 PO PRN ×3 (09:44→21:25)
[2016-09-27] MEDS: PROTONIX IV 40 MG in SODIUM CHLORIDE 100 ML IV SCH (10:25)
[2016-09-27] MEDS: COUMADIN PO SCH (17:42)
[2016-09-28] MEDS: LASIX TAB PO SCH (05:36)
[2016-09-28 05:44] LABS: BASOPHILS % (AUTO) 0.5 % (0.0-3.0); EOSINOPHILS # (AUTO) 1.9 K/ul (0.0-0.7); EOSINOPHILS % (AUTO) 24.2 % (0.0-7.0); HEMATOCRIT 34.7 % (37.0-47.0); HEMOGLOBIN 11.8 g/dl (12.0-16.0); IMMATURE GRANULOCYTE % (AUTO) 0.4 % (0.0-5.0); LYMPHOCYTES # (AUTO) 1.9 K/uL (0.60-3.4); LYMPHOCYTES % (AUTO) 24.2 (10.0-50.0); MEAN CORPUSCULAR HEMOGLOBIN 30.8 pg (27.0-31.0); MEAN CORPUSCULAR VOLUME 90.6 fl (81.0-99.0); MONOCYTES # (AUTO) 0.4 K/uL (0.4-2.0); MONOCYTES % (AUTO) 4.7 (0-10); NEUTROPHILS # (AUTO) 3.5 K/ul (2.0-6.9); PLATELET COUNT 116 10^3/uL (140-440); RED BLOOD COUNT 3.83 10^6/ul (4.20-5.40); WHITE BLOOD COUNT 7.65 K/ul (4.6-10.2)
[2016-09-28 05:53] LABS: PROTHROMBIN TIME 26.3 SEC (9.3-11.0)
[2016-09-28 06:08] LABS: ALBUMIN 2.9 g/dL (3.4-5.0); ANION GAP 12.2; BILIRUBIN,TOTAL 0.97 mg/dL (0.00-1.20); BUN/CREATININE RATIO 29.91; CALCIUM 8.4 mg/dL (8.2-10.2); CREATININE 1.17 mg/dL (0.60-1.30); POTASSIUM 5.2 mmol/L (3.5-5.10); TOTAL PROTEIN 5.8 g/dL (5.8-8.1)
[2016-09-28] MEDS: PROTONIX IV 40 MG in SODIUM CHLORIDE 100 ML IV SCH (09:54)
[2016-09-28] MEDS: LANOXIN PO SCH (09:54)
[2016-09-28] MEDS: INDERAL PO SCH (09:54)
[2016-09-28] MEDS: XANAX PO SCH (09:54)
[2016-09-28] MEDS: PROPYLTHIOURACIL PO SCH (09:55)
[2016-09-28] MEDS: DIOVAN PO SCH (09:55)
[2016-09-28] MEDS: TORADOL IVP SCH (10:04)
[2016-09-28] MEDS: NORCO 5-325 PO PRN (10:06)
[2016-09-28 10:23] VITALS: BP 98/55; TEMP 97.9
--- NOTE | 2016-09-28 11:56 | CM.DICTOOL ---
ADMISSION: 09/24/16 15:03 DISCHARGE: 2016 DATE OF SERVICE: 09/28/16 FINAL DIAGNOSIS Gastroenteritis Dehydration COPD Hypertension Atrial fibrillation Hyperthyroidism Aortic Stenosis, severe Gallbladder dysfunction Pacemaker Fracture C-spine Cervical Spine surgery Hysterectomy Obesity LAST VITALS Temp Pulse Resp BP Pulse Ox 97.9 F 62 20 98/55 L 94 L 09/28/16 10:00 09/28/16 10:00 09/28/16 10:00 09/28/16 10:00 09/28/16 10:00 ACTIVE HOME MEDICATIONS Acetaminophen/Hydrocodone Bitart (Elmer 5-325) 1 tab PO QID PRN PRN Reason: PAIN Last Admin: 09/28/16 10:06 Dose: 1 tab Alprazolam (Xanax) 0.5 mg PO BID [facility] Last Admin: 09/28/16 09:54 Dose: 0.5 mg Digoxin (Lanoxin) 250 mcg PO MoTuThFrSa@0900 [facility] Last Admin: 09/28/16 09:54 Dose: 250 mcg Furosemide (Lasix Tab) 40 mg PO MoWeFr@0630 [facility] Last Admin: 09/28/16 05:36 Dose: 40 mg Meclizine HCl (Antivert) 25 mg PO TID PRN PRN Reason: Dizziness Propranolol HCl (Inderal) 40 mg PO BID [facility] Last Admin: 09/28/16 09:54 Dose: 40 mg Propylthiouracil (Propylthiouracil) 50 mg PO DAILY [facility] Last Admin: 09/28/16 09:55 Dose: 50 mg Valsartan (Diovan) 80 mg PO DAILY [facility] Last Admin: 09/28/16 09:55 Dose: 80 mg Warfarin Sodium (Coumadin) 3 mg PO QPM [facility] Last Admin: 09/27/16 17:42 Dose: 3 mg Magnesium Carbonate/Al Hydrox (Gaviscon ES tablet Chew) 1 daily prn Last Admin: Omeprazole (Prilosec) 20 mg Daily Last Admin: ALLERGIES ciprofloxacin [From Cipro] Adverse Reaction (Verified 09/11/16 14:24) ciprofloxacin HCl [From Cipro] Adverse Reaction (Verified 09/11/16 14:24) propoxyphene HCl [From Darvon] Adverse Reaction (Verified 09/11/16 14:24) NEW PRESCRIPTIONS: Elmer 5-325 mg 3-5 times daily for pain (refill requested by patient) SMOKING: Not applicable DISEASE SPECIFIC EDUCATION: Medication change Activity Hydration LAB REVIEW: 09/28/16 05:05 09/28/16 05:05 09/28/16 05:05: WBC 7.65, RBC 3.83 L, Hgb 11.8 L, Hct 34.7 L, MCV 90.6, MCH 30.8 , MCHC 34.0, RDW Coeff of Megan 14.0, Plt Count 116 L, Immature Gran % (Auto) 0.4 , Neut % (Auto) 46.0, Lymph % (Auto) 24.2, Early % (Auto) 4.7, Eos % (Auto) 24.2 H, Baso % (Auto) 0.5, Immature Gran # (Auto) 0.0, Neut # 3.5, Lymph # 1.9, Early # 0.4, Eos # 1.9 H, Baso # 0.0, PT 26.3 H D, INR 2.55, Sodium 132 L, Potassium 5.2 H, Chloride 102, Carbon Dioxide 23, Anion Gap 12.2, BUN 35 H, Creatinine 1.17, Estimated GFR (MDRD) 45.00, BUN/Creatinine Ratio 29.91, Glucose 92, Calcium 8.4, Total Bilirubin 0.97, AST 33, ALT 10 L, Alkaline Phosphatase 59, Total Protein 5.8, Albumin 2.9 L, Globulin 2.9, Albumin/Globulin Ratio 1.00 PLAN: Discharge home Diet: resume as tolerated Activity: gradually resume as tolerated Medication change: STOP potassium chloride (k-dur) Continue medications as listed on nursing discharge information sheet An appointment has been scheduled with Dr. Villagran on Oct.05 at 2:30 pm. Ms. Farrell is alert and oriented x 3. She denies complaints of nausea or diarrhea. She reports her last stool was normal. Meal intake is good at 50-75% and all meals have been well tolerated. She is ambulatory with use of a cane and is able to transfer from the bed to the chair per self. The skin is in good condition and free of rashes, open wounds or decubitus ulcers. Raj Villagran MD
--- NOTE | 2016-09-28 13:36 | PN ---
DATE OF SERVICE: 09/26/16 SUBJECTIVE: The patient is a 81 year old white female hospitalized with acute gastroenteritis and dehydration. The patient's condition has improved and her kidney functions are getting better. She is eating well, her appetite is normal. The diarrhea has stopped and no nausea anymore. The patient is still anxious. The cardiovascular status seems to be stable with no symptoms to congestive heart failure. REVIEW OF SYSTEMS: CONSTITUTIONAL: No night sweats. No fatigue, malaise, lethargy. No fever or chills. HEENT: Eyes: No visual changes. No eye pain. No eye discharge. ENT: No runny nose. No epistaxis. No sinus pain. No sore throat. No odynophagia. No congestion. RESPIRATORY: No cough, no congestion. No hemoptysis. CARDIOVASCULAR: No angina symptoms. No CHF symptoms. No atypical chest pain for CAD. No palpitations. No shortness of breath. No PND. No orthopnea. GASTROINTESTINAL: No abdominal pain. No nausea or vomiting. No diarrhea or constipation. No hematemesis. No hematochezia. Appetite is normal. GENITOURINARY: No urgency. No frequency. No dysuria. No hematuria. No obstructive symptoms. No discharge. No pain. No significant abnormal bleeding. MUSCULOSKELETAL: No musculoskeletal pain; no joint swelling. NEUROLOGICAL: No headache. No neck pain. No syncope. No seizures. No dizziness. PSYCHIATRIC: Not anxious. No depression. No suicidal thoughts. No homicidal thoughts. SKIN: No rash. No lesions. No wounds. ENDOCRINE: No unexplained weight loss. No weight gain. HEMATOLOGIC/LYMPHATIC: No anemia. No purpura. No petechiae. No prolonged or excessive bleeding. No palpable lymph nodes. PHYSICAL EXAMINATION: GENERAL: The patient is oriented to time, place and person. VITAL SIGNS: Temperature 97.8, pulse 62, respiratory rate 15, blood pressure 90 /50 and pulse ox 91%. HEENT: Head normocephalic, atraumatic. Eyes: Extraocular muscles are intact. Pupils are equal, round and reactive to light and accommodation. Ears: No lesions. Nose appeared normal. Throat: No exudate or erythema. NECK: Supple. No JVD, no carotid bruit. No lymphadenopathy or thyromegaly. LUNGS: Decreased breath sounds but clear to auscultation. Percussion note normal. Chest symmetrical. HEART: S1, S2, no S3. Grade III/ systolic murmur. No cyanosis or clubbing. No ascites. Pulses: Dorsalis pedis and posterior tibial pulses +1 to +2 both sides. ABDOMEN: Soft. Nontender. Bowel sounds active. No CVA tenderness. No mass felt. EXTREMITIES: No edema. Full range of motion of all extremities, equal. NEUROLOGIC: No focal deficit. Cranial nerves II through XII are grossly intact. No headache, no double vision or headache. SKIN: Not dry. Intact. Turgor - normal. LYMPHATIC: No palpable lymph nodes/no lymphedema. MUSCULOSKELETAL: Normal joints with no swelling. Muscle tone is normal. ASSESSMENT: 1. Acute gastroenteritis with dehydration seems to have resolved. Still has mild discomfort in lower quadrants. PLAN: 1. Discontinue IV fluids 2. Will give Toradol 30mg IV 3. The patient has no evidence of fluid overload. 4. The patient was explained about her aortic stenosis and need for her to have something definite done about it because she maybe running out of time. It has to be properly timed. The reasons were explained to her again. The patient also had cholelithiasis but the I don't think that she is symptomatic from it at present time. CONDITION: Stable. TIME SPENT: More than 30 minutes. Plan and coordination of the patient's care discussed in the presence of nurse. OLLIE
--- NOTE | 2016-09-29 08:53 | ECHO2D ---
Date of Exam: 09/27/16 Ordering Physician: KEVIN DRAKE Reason for Echo: AORTIC STENOSIS SEVERE, CHF Auscultation: S1, S2 Murmurs: SYSTOLIC M-Mode Normal Adult Results LV Dimensions Normal Adult Results AoV Opening excursions >1.6 1.0 LVEDD-base- 3.5-5.8 4.4 Ao root dimensions 2.0-3.7 3.3 LVESD-base- 3.1-4.6 L. Atrium dimensions 1.9-3.8 7.2 Post. Wall thickness 0.8-1.1 1.5 IV septum (thickness) 0.7-1.2 1.5 Post. Wall excursion 0.72-1.3 NORMAL Septal motion NORMAL Systolic motion R. Ventricular cavity 1.5-2.0 NORMAL LVEF 60% 66% Paradoxical septal wall motion NORMAL 2-D : NORMAL LEFT VENTRICULAR CONTRACTILITY--CALCIFIC AORTIC STENOSIS--HEAVILY CALCIFIC MITRAL VALVE ANNULUS--MARKEDLY ENLARGED LEFT ATRIAL CAVITY--NO EFFUSION , NO THROMBUS M-MODE: MV: HEAVILY CALCIFIC MITRAL VALVE ANNULUS AV: CALCIFIC AORTIC STENOSIS--PLANIMETRY AREA 0.9 CM2 TV: NORMAL PV: CHAMBER SIZE: ENLARGED LEFT ATRIAL CAVITY WALL MOTION: NORMAL PERICARDIUM: NORMAL INTERPRETATION: 1. MODERATE LEFT VENTRICULAR HYPERTROPHY WITH MARKEDLY ENLARGED LEFT ATRIAL CAVITY 2. HEAVILY CALCIFIC MITRAL VALVE ANNULUS 3. SEVERE CALCIFIED AORTIC STENOSIS 4. NORMAL LEFT VENTRICULAR CONTRACTILITY MTDD
--- NOTE | 2016-09-29 09:49 | PN ---
DATE OF SERVICE: 09/27/16 SUBJECTIVE: The patient is a 81 year old white female hospitalized with acute gastroenteritis and dehydration. The patient's condition has improved and she is feeling a lot better. She has no symptoms of CHF. No diarrhea she had a normal bowel movement and her appetite is normal now. There is no nausea. The patient's chest x-ray showed initially that patient may have some vascular congestion. The patient has severe aortic stenosis. The patient does not want any further valve treatment until she turns 82 has been her talk for the past several years. REVIEW OF SYSTEMS: CONSTITUTIONAL: No night sweats. No fatigue, malaise, lethargy. No fever or chills. HEENT: Eyes: No visual changes. No eye pain. No eye discharge. ENT: No runny nose. No epistaxis. No sinus pain. No sore throat. No odynophagia. No congestion. RESPIRATORY: No cough, no congestion. No hemoptysis. CARDIOVASCULAR: No angina symptoms. No CHF symptoms. No atypical chest pain for CAD. No palpitations. No shortness of breath. GASTROINTESTINAL: No abdominal pain. No nausea or vomiting. No diarrhea or constipation. No hematemesis. No hematochezia. GENITOURINARY: No urgency. No frequency. No dysuria. No hematuria. No obstructive symptoms. No discharge. No pain. No significant abnormal bleeding. MUSCULOSKELETAL: No musculoskeletal pain; no joint swelling. NEUROLOGICAL: No headache. No neck pain. No syncope. No seizures. No dizziness. PSYCHIATRIC: Not anxious. No depression. No suicidal thoughts. No homicidal thoughts. SKIN: No rash. No lesions. No wounds. ENDOCRINE: No unexplained weight loss. No weight gain. HEMATOLOGIC/LYMPHATIC: No anemia. No purpura. No petechiae. No prolonged or excessive bleeding. No palpable lymph nodes. PHYSICAL EXAMINATION: GENERAL: The patient is oriented to time, place and person. VITAL SIGNS: Temperature 97.8, pulse 62, respiratory rate 20, blood pressure 95 /55 and pulse ox 97%. HEENT: Head normocephalic, atraumatic. Eyes: Extraocular muscles are intact. Pupils are equal, round and reactive to light and accommodation. Ears: No lesions. Nose appeared normal. Throat: No exudate or erythema. NECK: Supple. No JVD, no carotid bruit. No lymphadenopathy or thyromegaly. LUNGS: Decreased breath sounds but clear to auscultation. Percussion note normal. Chest symmetrical. HEART: S1, S2, no S3. Grade III/ systolic murmur. No cyanosis or clubbing. No ascites. Pulses: Dorsalis pedis and posterior tibial pulses +1 to +2 both sides. ABDOMEN: Soft. Nontender. Bowel sounds active. No CVA tenderness. No mass felt. EXTREMITIES: No edema. Full range of motion of all extremities, equal. NEUROLOGIC: No focal deficit. Cranial nerves II through XII are grossly intact. No headache, no double vision or headache. SKIN: Not dry. Intact. Turgor - normal. LYMPHATIC: No palpable lymph nodes/no lymphedema. MUSCULOSKELETAL: Normal joints with no swelling. Muscle tone is normal. LABS: hgb 11.8, hct 34, WBC 7,300 normal differential, creatinine 1.2, BUN 34, potassium 4.7 and glucose 95. ASSESSMENT: 1. Acute gastroenteritis 2. Dehydration, resolved. The patient does not have any symptoms of CHF. 3. Severe Aortic stenosis 4. Obesity 5. Pacemaker which is capture sensing well. PLAN: 1. Echocardiogram was done, the patient has normal LV contractility with LVH with markedly enlarged LA cavity. She has highly calcified mitral valve anulus and moderate to severe aortic stenosis. 2. All the reports were explained to the patient. The patient has no interest at all about her echo findings. She says that she isn't going to think anything about her valve until she turns 82. 3. The patient is off IV fluids. 4. The patient is advised to walk around. CONDITION: Stable. TIME SPENT: More than 30 minutes. Plan and coordination of the patient's care discussed in the presence of nurse. OLLIE
--- NOTE | 2016-09-29 11:02 | DS ---
DATE OF SERVICE: 09/28/16 FINAL DIAGNOSIS: 1. Gastroenteritis 2. Dehydration 3. COPD 4. Hypertension 5. Atrial fibrillation 6. Hyperthyroidism 7. Aortic Stenosis, severe 8. Gallbladder dysfunction 9. Pacemaker 10.Fracture C-Spine 11.Cervical spine surgery 12.Hysterectomy 13.Obesity LAST VITALS: Temperature 97.9, pulse 62, respiratory rate 20, blood pressure 98/55 and pulse ox 94%. DISCHARGE INSTRUCTIONS: Discharge home. Continue medications as listed on nursing discharge information sheet. An appointment been scheduled with Dr. Villagran on October 05 at 2:30pm. Medication change Stop Potassium Chloride. MEDICATIONS AT DISCHARGE: Renner 5-325 one tablet PO four times a day PRN Xanax 0.5mg PO twice a day Lanoxin 250mcg PO MoTuThFrSa Lasix 40mg PO MoWeFr Antivert 25mg PO three times a day PRN Inderal 40mg PO twice a day Propylthiouracil 50mg PO daily Diovan 80mg PO daily Coumadin 3mg PO QPM Gaviscon ES tablet chew one daily PRN Prilosec 20mg daily ALLERGIES: Ciprofloxacin Ciprofloxacin HCL Propoxyphene NEW PRESCRIPTIONS: Renner 5-325mg 3-5 times daily for pain DIET INSTRUCTIONS: Resume as tolerated ACTIVITY: Gradually resume as tolerated. SMOKING: Not applicable DISEASE SPECIFIC EDUCATION: Medication change Activity Hydration HOSPITAL COURSE: The patient is a 81 year old white female hospitalized with acute gastroenteritis and dehydration. The patient has been treated in the past for the same thing nearly a week ago the patient got better and now has another bout of acute gastroenteritis. Skin turgor is poor. The patient was given IV fluids and was watched for fluid overload. The patient's condition improved with symptomatic treatment with Lomatol and Zofran. The patient's bowel movement are now normal, her appetite is normal, stool cultures for C-Diff and Campylobacter are negative. At the time of discharge the patient's hgb was 11.8 , hct 34, WBC 7,600 with normal differentials, creatinine 1.1, BUN 35, potassium was 5.2. The patient's echo showed severe aortic stenosis. She again is advised to have aortic stenosis evaluated for transaortic replacement or any other measures.She is declining any further referral or workup. CONDITION: Stable. TIME SPENT: More than 60 minutes. [facility]
--- NOTE | 2016-09-29 11:03 | PN ---
09/24/16: Level 5 09/25/16: Intermediate 09/26/16: Intermediate 09/27/16: Brief 09/28/16: D as in discharge MTDD
== END 2016-09-28 13:45 | disposition home or self-care (01) | DRG 392 ==
LOC: SCU 15:03 → MEDSURG B 09-27 09:27
PROVIDERS: ADMIT Internal Medicine; ATTEND Internal Medicine
DX: K52.9 Noninfective gastroenteritis and colitis, unspecified (principal); E86.0 Dehydration; I51.7 Cardiomegaly; I35.0 Nonrheumatic aortic (valve) stenosis; I48.91 Unspecified atrial fibrillation; R60.0 Localized edema; J44.9 Chronic obstructive pulmonary disease, unspecified; K80.20 Calculus of gallbladder without cholecystitis without obstruction; F41.9 Anxiety disorder, unspecified; E66.9 Obesity, unspecified; Z95.0 Presence of cardiac pacemaker; Z79.01 Long term (current) use of anticoagulants; Z79.899 Other long term (current) drug therapy
CPT/HCPCS: 36415; 80053; 80162; 81001; 82150; 83690; 84439; 84443; 85025; 85610; 87015; 87045; 87081; 87086; 87493; 87899; 93005; 93010; 97802

== ENCOUNTER 2016-09-29 20:49 | Inpatient (IN) ==
[2016-09-29] MEDS ORDERED: LASIX IVP STA (20:57)
[2016-09-29 21:13] LABS: BASOPHILS # (AUTO) 0.1 K/uL (0-0.2); BASOPHILS % (AUTO) 0.5 % (0.0-3.0); EOSINOPHILS # (AUTO) 1.6 K/ul (0.0-0.7); EOSINOPHILS % (AUTO) 15.4 % (0.0-7.0); HEMATOCRIT 40.3 % (37.0-47.0); HEMOGLOBIN 13.9 g/dl (12.0-16.0); IMMATURE GRANULOCYTE % (AUTO) 0.3 % (0.0-5.0); LYMPHOCYTES # (AUTO) 2.3 K/uL (0.60-3.4); LYMPHOCYTES % (AUTO) 22.2 (10.0-50.0); MEAN CORPUSCULAR HGB CONC 34.5 (31.8-35.4); MONOCYTES # (AUTO) 0.5 K/uL (0.4-2.0); MONOCYTES % (AUTO) 4.4 (0-10); NEUTROPHILS # (AUTO) 5.9 K/ul (2.0-6.9); NEUTROPHILS % (AUTO) 57.2; PLATELET COUNT 183 10^3/uL (140-440); RED BLOOD COUNT 4.48 10^6/ul (4.20-5.40); WHITE BLOOD COUNT 10.38 K/ul (4.6-10.2)
[2016-09-29 21:18] LABS: ABG BASE EXCESS 0 (-2.0-2.0); ABG HCO3 23.9 (22.0-26.0); ABG PCO2 33.2 mmHg (35-45); ABG PH 7.466 (7.35-7.45); ABG TCO2 25 (22.0-28.0)
[2016-09-29] MEDS ORDERED: XANAX PO STA (21:28)
[2016-09-29 21:44] LABS: PROTHROMBIN TIME 19.2 SEC (9.3-11.0)
[2016-09-29] MEDS ORDERED: XANAX ONE (21:45)
--- NOTE | 2016-09-29 21:45 | CT ---
EXAM: CT of the chest without contrast. HISTORY: Shortness of breath. PROCEDURE: Contiguous axial CT images of the chest without contrast with coronal and sagittal refor mats. FINDINGS: The heart is enlarged. There is calcification of a cardiac valve. The thoracic aorta is within normal limits in diameter. There are atherosclerotic calcifications in the thoracic aorta. There are small layering bilateral pleural effusions with adjacent consolidation. There is pulmona ry vascular congestion. There is a 1.1 cm nodule in the lingula. There are degenerative changes in the spine. There is a two lead automatic implantable cardiac defibrillator. There is minimal marcus hepatic ascites. The adrenal glands are normal in appearance. Impression: Cardiomegaly with pulmonary vascular congestion. Bilateral consolidation consistent with atelectasis and/or pneumonia. Small bilateral pleural effusions. 1.1 cm lung nodule as described.
[2016-09-29 21:51] LABS: ALBUMIN 3.8 g/dL (3.4-5.0); ALBUMIN/GLOBULIN RATIO 0.97; ANION GAP 15.5; BILIRUBIN,TOTAL 1.84 mg/dL (0.00-1.20); BUN/CREATININE RATIO 26.27; CALCIUM 9.8 mg/dL (8.2-10.2); CREATININE 1.18 mg/dL (0.60-1.30); POTASSIUM 5.5 mmol/L (3.5-5.10); TOTAL PROTEIN 7.7 g/dL (5.8-8.1); TROPONIN I 0.189 ng/ml (0.0000-0.4000)
[2016-09-29 23:00] LABS: BILIRUBIN,URINE Negative (NEGATIVE); KETONES,URINE Negative (NEGATIVE); LEUKOCYTE ESTERASE ,URINE Trace (NEGATIVE); NITRITE,URINE Negative (NEGATIVE); PH,URINE 5.5 (5-9); PROTEIN,URINE Negative (NEGATIVE); URINE, BLOOD Trace-intact (NEGATIVE)
[2016-09-29 23:06] LABS: ADD URINE MICROSCOPIC YES; BACTERIA,URINE TRACE (NOT PRESENT)
--- NOTE | 2016-09-29 23:15 | ED.PDOC ---
General ED Provider: Dr. PETER JAQUEZ-ER Chief Complaint: Shortness of Air Stated Complaint: im sob Time Seen by Physician: 20:50 Mode of Arrival: Ambulance Information Source: Patient, EMT Exam Limitations: No limitations Primary Care Provider: KEVIN MARTINEZ Nursing and Triage Documentation Reviewed and Agree: Yes Cardiovascular Complaint Exam - Chest Pain Complaint/Exam Onset: Gradual Duration: several hours Symptoms Are: Still present Timing: Constant Initial Severity: Mild Current Severity: None Location: Reports: Diffuse Character: Reports: Dull, Aching Aggravating: Reports: None Alleviating: Reports: Oxygen Associated Signs and Symptoms: Reports: Short of air History of Healthcare-Acquired Pneumonia: Reports: No AMI/ACS Risk Factors: Reports: Hypertension, CHF TAD Risk Factors: Reports: Hypertension Pulmonary Embolism Risk Factors: Reports: None Prior Care for this Complaint: Yes Recent Stress Test: Yes Recent Echo/LV Function: Yes JVD Present: No Subcutaneous Emphysema Present: No Diminshed Breath Sounds: No Reproducible Chest Wall Pain: No Bilateral Pulses Present: Yes Unequal Pulses Noted: No Differential Diagnoses: Acute DE, ACS, Pulmonary Edema Quality Indicator For Non-Traumatic Chest Pain/Syncope: EKG Performed Review of Systems - Review Of Systems Constitutional: Reports: No symptoms Eyes: Reports: No symptoms Ears, Nose, Mouth, Throat: Reports: No symptoms Respiratory: Reports: Orthopnea, Short of air Cardiac: Reports: Edema GI: Reports: No symptoms : Reports: No symptoms Musculoskeletal: Reports: No symptoms Skin: Reports: No symptoms Neurological: Reports: No symptoms Endocrine: Reports: No symptoms Hematologic/Lymphatic: Reports: No symptoms All Other Systems: Reviewed and Negative Past Medical History - Past Medical History Previously Healthy: No Endocrine: Reports: None Cardiovascular: Reports: A-Fib Respiratory: Reports: None Hematological: Reports: Anemia Gastrointestinal: Reports: None Genitourinary: Reports: None Neuro/Psych: Reports: None Musculoskeletal: Reports: None Cancer: Reports: None Last Menstrual Period: n/a - Surgical History General Surgical History: Reports: Hysterectomy, Pacemaker, Orthopedic ( fracture neck with surgery), Other (Cataract surgery ) - Family History Family History: Reports: None - Social History Smoking Status: Never smoker Hx Substance Use: No Alcohol Screening: None Lives: With family Physical Exam - Physical Exam Appearance: Well-appearing, No pain distress, Well-nourished Eyes: SUMEET, EOMI, Conjunctiva clear ENT: Ears normal, Nose normal, Oropharynx normal Neck: Supple Respiratory: Crackles Cardiovascular: Irregular rhythm, Murmur GI/: Soft, Nontender, No masses, Bowel sounds normal, No Organomegaly Musculoskeletal: Normal strength, ROM intact, No edema, No calf tenderness Skin: Warm, Dry, Normal color Neurological: Sensation intact, Motor intact, Reflexes intact, Cranial nerves intact, Alert, Oriented Psychiatric: Affect appropriate, Mood appropriate, Anxious Interpretation - Radiology Interpretation Radiology Interpretation By: Radiologist Radiology Results: Positive Exam Interpreted: CT Scan - EKG Interpretation Time of EKG #1: 23:15 Rate: Normal Rhythm: Sinus Ectopy: None [place]: NL ST Segment: Normal Interpretation: nsr Re-Evaluation - Re-Evaluation Time of Re-Evaluation: 23:15 Status: Improved Vital Signs Stable: Yes Pain Level: 0 Appearance: NAD Lungs: Clear Skin: Warm and Dry Neuro: Alert and Oriented X3 CV: RRR Physician Notification - Case Discussed Physician Notified: dr martinez--indicated she has severe but does not want intervention Time of Notification: 23:15 Critical Care Note - Critical Care Note Total Time (mins): 0 Course - Course Hematology/Chemistry: 09/29/16 21:11 09/29/16 21:11 Orders, Labs, Meds: Lab Review 09/29/16 09/29/16 09/29/16 20:55 21:11 22:25 WBC 10.38 H RBC 4.48 Hgb 13.9 Hct 40.3 MCV 90.0 MCH 31.0 MCHC 34.5 RDW Coeff of Megan 14.1 Plt Count 183 D Immature Gran % (Auto) 0.3 Neut % (Auto) 57.2 Lymph % (Auto) 22.2 [place] % (Auto) 4.4 Eos % (Auto) 15.4 H Baso % (Auto) 0.5 Immature Gran # (Auto) 0.0 Neut # 5.9 Lymph # 2.3 [place] # 0.5 Eos # 1.6 H Baso # 0.1 PT 19.2 H D INR 1.86 D-Dimer 1.30 Puncture Site Lb O2 Saturation 93.0 L ABG pH 7.466 H ABG pCO2 33.2 L ABG pO2 62.0 L ABG HCO3 23.9 ABG Total CO2 25 ABG Base Excess 0 Evaristo Test + FiO2 % 21.0 Sodium 133 L Potassium 5.5 H Chloride 99 Carbon Dioxide 24 Anion Gap 15.5 BUN 31 H Creatinine 1.18 Estimated GFR (MDRD) 44.00 BUN/Creatinine Ratio 26.27 Glucose 104 Calcium 9.8 Total Bilirubin 1.84 H AST 40 H ALT 13 Alkaline Phosphatase 72 Total Creatine Kinase 51 Troponin I 0.1890 B-Natriuretic Peptide 1525 H Total Protein 7.7 Albumin 3.8 Globulin 3.9 Albumin/Globulin Ratio 0.97 TSH 2.475 Urine Color Yellow Urine Clarity Clear Urine pH 5.5 Ur Specific [place] <=1.005 Urine Protein Negative Urine Glucose (UA) Negative Urine Ketones Negative Urine Blood Trace-intact Urine Nitrite Negative Urine Bilirubin Negative Urine Urobilinogen 0.2 Ur Leukocyte Esterase Trace Urine Microscopic RBC 0-2 Urine Microscopic WBC 5-10 Ur Squamous Epith Cells 0-2 Urine Bacteria Trace Orders Category Date Time Status ABG DRAW REQUEST Stat CARDIO 09/29/16 20:55 Completed EKG-(ED ONLY) Stat CARDIO 09/29/16 20:55 Completed Picture Copyist [ED NETWORK ANNOUNCER APPLIED] .ONCE EMERGENCY 09/29/16 20:58 Active IV [ED IV/MEDIPORT/POWERPORT] .ONCE EMERGENCY 09/29/16 20:56 Active ABG Stat LAB 09/29/16 20:55 Completed BNP [B-TYPE NATRIURETIC PEPTIDE] Stat LAB 09/29/16 21:11 Completed CBC W/ AUTO DIFF Stat LAB 09/29/16 21:11 Completed COMPREHENSIVE METABOLIC PANEL Stat LAB 09/29/16 21:11 Completed CREATINE KINASE Stat LAB 09/29/16 21:11 Completed D-DIMER Stat LAB 09/29/16 21:11 Completed PT WITH INR Stat LAB 09/29/16 21:11 Completed THYROID STIMULATING HORMONE Stat LAB 09/29/16 21:11 Completed TROPONIN I Stat LAB 09/29/16 21:11 Completed URINALYSIS C & S IF INDICATED Stat LAB 09/29/16 22:25 Completed URINE CULTURE Stat LAB 09/29/16 23:06 Received 0.9 % Sodium Chloride [Saline Flush] MEDS 09/29/16 20:56 Ordered 1 syr IVF PRN PRN Alprazolam [Xanax] MEDS 09/29/16 21:45 Discontinued 0.5 mg .ROUTE .STK-MED ONE Alprazolam [Xanax] MEDS 09/29/16 21:28 Discontinued 0.5 mg PO ONCE STA Furosemide [Lasix] MEDS 09/29/16 20:57 Discontinued 40 mg IVP ONCE STA CT CHEST W/O CONTRAST Stat RADS 09/29/16 20:56 Completed Medications Generic Name Dose Route Start Last Admin Trade Name Freq PRN Reason Stop Dose Admin Sodium Chloride 1 syr 09/29/16 20:56 Saline Flush IVF PRN PRN To flush IV Discontinued Medications Generic Name Dose Route Start Last Admin Trade Name Freq PRN Reason Stop Dose Admin Alprazolam 0.5 mg 09/29/16 21:28 09/29/16 21:49 Xanax PO 09/29/16 21:29 Not Given ONCE STA Furosemide 40 mg 09/29/16 20:57 09/29/16 21:08 Lasix IVP 09/29/16 20:58 40 mg ONCE STA Administration Vital Signs: Temp Pulse Resp BP Pulse Ox 09/29/16 20:51 97.5 F L 73 20 152/80 H 98 FANNY Risk Score FANNY Risk Score: Risk Score Odds of by 30D 0 0.1 (0.1-0.2) 1 0.3 (0.2-0.3) 2 0.4 (0.3-0.5) 3 0.7 (0.6-0.9) 4 1.2 (1.0-1.5) 5 2.2 (1.9-2.6) 6 3.0 (2.5-3.6) 7 4.8 (3.8-6.1) Departure - Departure Time of Disposition: 23:16 Disposition: ADMITTED INPATIENT Discharge Problem: Acute respiratory failure, Valvular cardiomyopathy Instructions: Aortic Stenosis (ED) Condition: Good Pt referred to PMD for follow-up: Yes Allergies/Adverse Reactions: Allergies ciprofloxacin [From Cipro] Adverse Reaction (Verified 09/29/16 21:22) ciprofloxacin HCl [From Cipro] Adverse Reaction (Verified 09/29/16 21:22) propoxyphene HCl [From Darvon] Adverse Reaction (Verified 09/29/16 21:22) Home Medications: Ambulatory Orders Alprazolam [Xanax] 1 mg PO BID PRN 04/26/13 Digoxin [Lanoxin] 250 mcg PO MOTUTHFRSA 04/26/13 Furosemide [Lasix Tab] 40 mg PO MOWEFR 04/26/13 Propranolol HCl [Inderal] 40 mg PO BID 04/26/13 Valsartan [Diovan] 80 mg PO DAILY 04/26/13 Propylthiouracil 50 mg PO DAILY 04/17/14 Meclizine HCl [Antivert] 25 mg PO TID PRN #30 tablet 05/24/14 Warfarin Sodium [Coumadin] 3 mg PO DAILY 07/17/16 Magnesium Carbonate/Al Hydrox [Gaviscon Es Tablet Chew] 1 each PO DAILY PRN Omeprazole [Prilosec] 20 mg PO QDAC 09/11/16 Ondansetron HCl [Zofran] 4 mg PO Q6H PRN 09/11/16 Hydrocodone/Acetaminophen [[place] 5-325 Tablet] 5 - 325 each PO 5XD PRN 09/29/16 Disposition Discussed With: Patient
[2016-09-29] MEDS ORDERED: ZOFRAN TAB PO PRN (23:20)
[2016-09-29] MEDS ORDERED: [UNRECOGNIZED DRUG - OTHER] PO PRN (23:20)
[2016-09-29] MEDS ORDERED: ANTIVERT PO PRN (23:20)
[2016-09-29] MEDS ORDERED: MAGNESIUM CARBONATE PO PRN (23:20)
[2016-09-29] MEDS ORDERED: AL HYDROX PO PRN (23:20)
[2016-09-29] MEDS ORDERED: DIGOXIN 250 MCG PO SCH (23:30)
[2016-09-30] MEDS ORDERED: LASIX IVP STA (00:03)
[2016-09-30 00:35] VITALS: BMI 28.1
[2016-09-30] MEDS: XANAX PO PRN ×2 (03:54→21:17)
[2016-09-30 04:50] LABS: BASOPHILS # (AUTO) 0.1 K/uL (0-0.2); BASOPHILS % (AUTO) 0.6 % (0.0-3.0); EOSINOPHILS # (AUTO) 0.8 K/ul (0.0-0.7); EOSINOPHILS % (AUTO) 8.5 % (0.0-7.0); HEMATOCRIT 37.5 % (37.0-47.0); HEMOGLOBIN 13.3 g/dl (12.0-16.0); IMMATURE GRANULOCYTE % (AUTO) 0.4 % (0.0-5.0); LYMPHOCYTES # (AUTO) 1.9 K/uL (0.60-3.4); LYMPHOCYTES % (AUTO) 20.8 (10.0-50.0); MEAN CORPUSCULAR HEMOGLOBIN 31.5 pg (27.0-31.0); MEAN CORPUSCULAR HGB CONC 35.5 (31.8-35.4); MEAN CORPUSCULAR VOLUME 88.9 fl (81.0-99.0); MONOCYTES # (AUTO) 0.5 K/uL (0.4-2.0); MONOCYTES % (AUTO) 5.2 (0-10); NEUTROPHILS # (AUTO) 5.8 K/ul (2.0-6.9); NEUTROPHILS % (AUTO) 64.5; PLATELET COUNT 145 10^3/uL (140-440); RED BLOOD COUNT 4.22 10^6/ul (4.20-5.40); WHITE BLOOD COUNT 9.01 K/ul (4.6-10.2)
[2016-09-30 05:25] LABS: ALBUMIN 3.5 g/dL (3.4-5.0); ALBUMIN/GLOBULIN RATIO 1.06; ANION GAP 14.8; BILIRUBIN,TOTAL 2.31 mg/dL (0.00-1.20); POTASSIUM 4.8 mmol/L (3.5-5.10); TOTAL PROTEIN 6.8 g/dL (5.8-8.1)
[2016-09-30] MEDS: LASIX IVP SCH ×2 (06:41→17:23)
[2016-09-30] MEDS: PRILOSEC PO SCH (06:41)
[2016-09-30] MEDS ORDERED: MYLANTA SUSP PO PRN (07:25)
[2016-09-30] MEDS ORDERED: TORADOL IVP PRN (08:11)
[2016-09-30] MEDS ORDERED: COUMADIN PO SCH (09:00)
[2016-09-30] MEDS: DIOVAN PO SCH (09:30)
[2016-09-30] MEDS: INDERAL PO SCH ×2 (09:30→21:16)
[2016-09-30] MEDS: PROPYLTHIOURACIL PO SCH (09:31)
[2016-09-30] MEDS: NORCO 5-325 PO PRN ×2 (09:31→21:17)
--- NOTE | 2016-09-30 11:28 | PCM.PROG ---
Attending Provider: ATTENDING PROVIDER: Dr. KEVIN DRAKE DATE OF SERVICE: 09/30/16 SUBJECTIVE: This 81 year old WHITE/ F was hospitalized 09/29/16. The patient is hospitalized with acute respiratory distress and acute pulmonary edema. It was explained to the patient that this is likely from aortic stenosis. The patient doesn't want anything to be done about the aortic stenosis. The patient complains of a headache nonspecific. REVIEW OF SYSTEMS: CONSTITUTIONAL: No night sweats. No fatigue, malaise, lethargy. No fever or chills. HEENT: Eyes: No visual changes. No eye pain. No eye discharge. ENT: No runny nose. No epistaxis. No sinus pain. No odynophagia. No congestion. RESPIRATORY: No cough, no congestion. No hemoptysis. CARDIOVASCULAR: No angina symptoms. No CHF symptoms. No atypical chest pain for CAD. No palpitations. No shortness of breath. No PND, no orthopnea. GASTROINTESTINAL: No abdominal pain. No nausea or vomiting. No diarrhea or constipation. No hematemesis. No hematochezia. GENITOURINARY: No urgency. No frequency. No dysuria. No hematuria. No obstructive symptoms. No discharge. No pain. No significant abnormal bleeding. MUSCULOSKELETAL: No musculoskeletal pain; no joint swelling. NEUROLOGICAL: Awake, alert, oriented to time, place and person. Headache. No neck pain. No syncope. No seizures. No dizziness. PSYCHIATRIC: Not anxious. No depression. No suicidal thoughts. No homicidal thoughts. SKIN: No rash. No lesions. No wounds. ENDOCRINE: No unexplained weight loss. No weight gain. HEMATOLOGIC/LYMPHATIC: No anemia. No purpura. No petechiae. No prolonged or excessive bleeding. No palpable lymph nodes. PHYSICAL EXAMINATION: GENERAL: The patient is awake, alert and oriented, lying in bed in no distress. VITAL SIGNS: Temperature 97.1 F, Pulse 77, Respiratory Rate 16, BP 114/61, Pulse Ox 96% HEENT: Head normocephalic, atraumatic. Eyes: Extraocular muscles are intact. Pupils are equal, round and reactive to light and accommodation. Ears: No lesions. Nose appeared normal. Throat: No exudate or erythema. NECK: Supple. JVP 2 cm, no carotid bruit. No lymphadenopathy or thyromegaly. LUNGS: Crepitations bilaterally at the bases. Percussion note normal. Chest symmetrical. HEART: S1, S2. Stage III/ systolic murmur. No cyanosis or clubbing. No ascites. Pulses: Dorsalis pedis and posterior tibial pulses +1 to +2 both sides. ABDOMEN: Soft. Non-tender. Bowel sounds active. No CVA tenderness. No mass felt. EXTREMITIES: Trace edema. Full range of motion of all extremities, equal. NEUROLOGIC: No focal deficit. Cranial nerves II through XII are grossly intact. Headache, nonspecific; no double vision or headache. SKIN: Not dry. Intact. Turgor-normal. LYMPHATIC: No palpable lymph nodes/no lymphedema. MUSCULOSKELETAL: Normal joints with no swelling. Muscle tone is normal. LAB REVIEW: 09/30/16 04:47 09/30/16 04:47 09/30/16 04:47: WBC 9.01, RBC 4.22, Hgb 13.3, Hct 37.5, MCV 88.9, MCH 31.5 H, MCHC 35.5 H, RDW Coeff of [place] 14.0, Plt Count 145, Immature Gran % (Auto) 0.4, Neut % (Auto) 64.5, Lymph % (Auto) 20.8, [place] % (Auto) 5.2, Eos % (Auto) 8.5 H, Baso % (Auto) 0.6, Immature Gran # (Auto) 0.0, Neut # 5.8, Lymph # 1.9, [place] # 0.5, Eos # 0.8 H, Baso # 0.1, PT 19.0 H, INR 1.84, Sodium 136, Potassium 4.8, Chloride 98, Carbon Dioxide 28, Anion Gap 14.8, BUN 28 H, Creatinine 1.00, Estimated GFR (MDRD) 53.00, BUN/Creatinine Ratio 28.00, Glucose 99, Calcium 10.0 , Total Bilirubin 2.31 H, AST 34, ALT 12, Alkaline Phosphatase 68, Total Protein 6.8, Albumin 3.5, Globulin 3.3, Albumin/Globulin Ratio 1.06 ASSESSMENT: 1. Acute respiratory failure from acute pulmonary edema secondary to severe aortic stenosis. PLAN: 1. Continue IV Lasix 2. BNP in a.m. tomorrow 3. Chest x-ray today 4. Have the patient sit up 5. Toradol 30 mg IV Plan and coordination of the patient's care discussed in the presence of Cupola Hoist Operator and nurse. EDUCATION: The patient again does not want anything to be done about the aortic stenosis. CONDITION: Stable SCRIBED BY: SHERYL HENSON Inside Sales Account Manager scribed while in presence of service performed by Dr. KEVIN DRAKE on 09/30/16 ([id number])
--- NOTE | 2016-09-30 14:48 | DI ---
EXAM: Chest two view, frontal and lateral views. HISTORY: Bronchitis. Cough. Wheezing. COMPARISON: C prior. FINDINGS: Left-sided pacemaker noted. Heart is enlarged. Atherosclerotic calcifications present. Dense mitral annular calcifications are present. Small pleural effusions noted with increased inte rstitial markings throughout both lungs. There is no pneumothorax. Degenerative changes present in the shoulder. IMPRESSION: Small pleural effusions and bilateral interstitial opacities which could be due to pneumonia or solange a.
[2016-09-30] MEDS: COUMADIN PO SCH (17:23)
[2016-10-01] MEDS: PRILOSEC PO SCH (06:06)
[2016-10-01] MEDS: LASIX IVP SCH ×2 (06:30→19:19)
[2016-10-01 06:45] LABS: BASOPHILS % (AUTO) 0.4 % (0.0-3.0); EOSINOPHILS # (AUTO) 0.8 K/ul (0.0-0.7); HEMATOCRIT 37.1 % (37.0-47.0); HEMOGLOBIN 12.8 g/dl (12.0-16.0); IMMATURE GRANULOCYTE % (AUTO) 0.4 % (0.0-5.0); LYMPHOCYTES # (AUTO) 2.3 K/uL (0.60-3.4); LYMPHOCYTES % (AUTO) 29.6 (10.0-50.0); MEAN CORPUSCULAR HEMOGLOBIN 31.1 pg (27.0-31.0); MEAN CORPUSCULAR HGB CONC 34.5 (31.8-35.4); MONOCYTES # (AUTO) 0.5 K/uL (0.4-2.0); MONOCYTES % (AUTO) 6.1 (0-10); NEUTROPHILS # (AUTO) 4.2 K/ul (2.0-6.9); NEUTROPHILS % (AUTO) 53.5; PLATELET COUNT 138 10^3/uL (140-440); RED BLOOD COUNT 4.12 10^6/ul (4.20-5.40); WHITE BLOOD COUNT 7.81 K/ul (4.6-10.2)
[2016-10-01 06:51] LABS: PROTHROMBIN TIME 17.2 SEC (9.3-11.0)
[2016-10-01 07:07] LABS: ALBUMIN 3.2 g/dL (3.4-5.0); ALBUMIN/GLOBULIN RATIO 1.03; BILIRUBIN,TOTAL 2.61 mg/dL (0.00-1.20); BUN/CREATININE RATIO 23.65; CALCIUM 9.7 mg/dL (8.2-10.2); CREATININE 0.93 mg/dL (0.60-1.30); TOTAL PROTEIN 6.3 g/dL (5.8-8.1)
[2016-10-01] MEDS: DIOVAN PO SCH (09:15)
[2016-10-01] MEDS: INDERAL PO SCH ×2 (09:15→20:30)
[2016-10-01] MEDS: LANOXIN PO SCH (09:16)
[2016-10-01] MEDS: PROPYLTHIOURACIL PO SCH (09:16)
[2016-10-01] MEDS: NORCO 5-325 PO PRN ×3 (09:17→22:33)
--- NOTE | 2016-10-01 11:45 | HP ---
DATE OF SERVICE: 09/29/16 REASON FOR HOSPITALIZATION: Acute respiratory distress. HISTORY OF PRESENT ILLNESS: The patient is a 81 year old white female came to the emergency room with shortness of air. The patient was brought to the emergency room by Ambulance. The patient was seen and examined in the ER by ER attending and was noted to be in acute pulmonary edema. The patient was recently hospitalized and discharged after being treated for acute gastroenteritis. She had an echo done which again showed severe aortic stenosis with normal LV contractility with LVH. The patient had declined any further work up or referral for it. She was strongly advised for past several years. REVIEW OF SYSTEMS: CONSTITUTIONAL: No night sweats. No fatigue, malaise, lethargy. No fever or chills. HEENT: Eyes: No visual changes. No eye pain. No eye discharge. ENT: No runny nose. No epistaxis. No sinus pain. No sore throat. No odynophagia. No ear pain. No congestion. RESPIRATORY: No cough, no congestion. No hemoptysis. CARDIOVASCULAR: No angina symptoms. No CHF symptoms. No atypical chest pain for CAD. No palpitations. Shortness of breath. PND and Orthopnea. GASTROINTESTINAL: No abdominal pain. No nausea or vomiting. No diarrhea or constipation. No hematemesis. No hematochezia. GENITOURINARY: No urgency. No frequency. No dysuria. No hematuria. No obstructive symptoms. No discharge. No pain. No significant abnormal bleeding. MUSCULOSKELETAL: No musculoskeletal pain. No joint swelling. No arthritis. NEUROLOGICAL: No headache. No neck pain. No syncope. No seizures. No dizziness. PSYCHIATRIC: Not anxious. No depression. No suicidal thoughts. No homicidal thoughts. SKIN: No rash. No lesions. No wounds. ENDOCRINE: No unexplained weight loss. No weight gain. HEMATOLOGIC/LYMPHATIC: No anemia. No purpura. No petechiae. No prolonged or excessive bleeding. No palpable lymph nodes. PERSONAL/FAMILY/SOCIAL HISTORY: The patient is and lives by herself. The daughter lives near by. She is non-smoker and no alcohol abuse. She does all activity of daily living. PAST MEDICAL/SURGICAL PROBLEMS: Aortic stenosis Hypertension Pacemaker Obesity Dyslipidemia Hysterectomy Fracture of the neck with fall C6 Cataract surgery MEDICATIONS: Xanax 1mg PO twice a day Digoxin 250mcg PO four days a week Lasix 40mg PO daily Inderal 40mg twice a day Diovan 18mg PO daily PTU 50mg PO daily Coumadin 3mg PO daily Prilosec 20mg PO QAM Zofran 4mg PRN [place] 5-325mg five times a day as needed. ALLERGIES: Ciprofloxacin Ciprofloxacin HCL Propoxyphene HCL PHYSICAL EXAMINATION: GENERAL: The patient is oriented to time, place and person, in respiratory distress. VITAL SIGNS: Temperature 97, pulse 73, respiratory rate 20, blood pressure 152/ 80 and pulse 98% with 2 liters. HEENT: Head normocephalic, atraumatic. Eyes: Extraocular muscles are intact. Pupils are equal, round and reactive to light and accommodation. Ears: No lesions. Nose appeared normal. Throat: No exudate or erythema. Some what pale. NECK: Supple. JVP 2 cm, no carotid bruit. No lymphadenopathy or thyromegaly. FACE: Symmetrical, sclarea not icteric. LUNGS: Bilateral wheeze with crepitations at the bases. Percussion note normal. Chest symmetrical. HEART: S1, S2, no S3. Grade II to III/ systolic murmur. No cyanosis or clubbing. No ascites. Pulses: Dorsalis pedis and posterior tibial pulses +1 bilaterally with trace edema. ABDOMEN: Soft. Protuberant. Nontender. Bowel sounds active. No CVA tenderness. No mass felt. EXTREMITIES: No edema. Full range of motion of all extremities, equal. NEUROLOGIC: No focal deficit. Cranial nerves II through XII are grossly intact. No headache, no double vision or headache. SKIN: Dry. Intact. Turgor - normal. LYMPHATIC: No palpable lymph nodes/no lymphedema. MUSCULOSKELETAL: Normal joints with no swelling. Muscle tone is normal. LABS: Hgb 13.9, hct 40, WBC 10,000 normal differential, creatinine 1.1, BUN 31 and potassium 5.5. ABG pO2 62, pCO2 33, pH 7.46 with 93% saturation on room air. U/ A negative. CT chest showed pulmonary vascular congestion. ASSESSMENT: 1. Acute pulmonary edema with Congestive heart failure 2. Severe aortic stenosis 3. Pacemaker with underlined atrial fibrillation 4. Hypertension 5. Hyperkalemia PLAN: 1. IV Lasix 2. Continue all the rest of the medications as before 3. No non-steroidal or anti-inflammatory. 4. Telemetry 5. Cardiac markers to rule out any acute NM 6. Education again carried out about aortic stenosis 7. The patient still declines to be referred for her aortic stenosis which is very likely cause of her congestive heart failure. 8. Digoxin level 9. Pacemaker seems to be capturing and functioning well. CONDITION: Stable PROGNOSIS: Guarded/Poor TIME SPENT: More than 70 minutes. MTDD
[2016-10-01] MEDS: NYSTOP POWDER TP SCH ×2 (16:27→20:28)
[2016-10-01] MEDS: COUMADIN PO SCH (17:07)
[2016-10-01] MEDS: XANAX PO PRN (20:30)
[2016-10-02] MEDS: PRILOSEC PO SCH (06:11)
[2016-10-02] MEDS: LASIX IVP SCH (06:12)
[2016-10-02 06:22] LABS: BASOPHILS # (AUTO) 0.1 K/uL (0-0.2); BASOPHILS % (AUTO) 0.7 % (0.0-3.0); EOSINOPHILS # (AUTO) 0.9 K/ul (0.0-0.7); EOSINOPHILS % (AUTO) 12.9 % (0.0-7.0); HEMATOCRIT 35.3 % (37.0-47.0); IMMATURE GRANULOCYTE % (AUTO) 0.4 % (0.0-5.0); LYMPHOCYTES # (AUTO) 2.3 K/uL (0.60-3.4); LYMPHOCYTES % (AUTO) 32.1 (10.0-50.0); MEAN CORPUSCULAR HEMOGLOBIN 30.9 pg (27.0-31.0); MONOCYTES # (AUTO) 0.4 K/uL (0.4-2.0); MONOCYTES % (AUTO) 5.5 (0-10); NEUTROPHILS # (AUTO) 3.5 K/ul (2.0-6.9); NEUTROPHILS % (AUTO) 48.4; PLATELET COUNT 124 10^3/uL (140-440); RED BLOOD COUNT 3.88 10^6/ul (4.20-5.40); WHITE BLOOD COUNT 7.29 K/ul (4.6-10.2)
[2016-10-02 06:36] LABS: PROTHROMBIN TIME 17.6 SEC (9.3-11.0)
[2016-10-02 06:57] LABS: ALBUMIN/GLOBULIN RATIO 1.07; ANION GAP 12.8; BILIRUBIN,TOTAL 1.76 mg/dL (0.00-1.20); BUN/CREATININE RATIO 21.36; CALCIUM 9.3 mg/dL (8.2-10.2); CREATININE 1.17 mg/dL (0.60-1.30); POTASSIUM 3.8 mmol/L (3.5-5.10); TOTAL PROTEIN 5.8 g/dL (5.8-8.1)
[2016-10-02] MEDS: LANOXIN PO SCH (08:48)
[2016-10-02] MEDS: PROPYLTHIOURACIL PO SCH (08:49)
[2016-10-02] MEDS: INDERAL PO SCH (08:49)
[2016-10-02] MEDS: NYSTOP POWDER TP SCH (08:50)
[2016-10-02] MEDS: DIOVAN PO SCH (08:50)
--- NOTE | 2016-10-02 10:10 | PN ---
DATE OF SERVICE: 10/01/16 SUBJECTIVE: The patient is a 81 year old white female hospitalized with acute pulmonary edema, acute respiratory failure, congestive heart failure with history of pacemaker. The main problem was the patient having tight aortic stenosis. She has been on diarrhetic three days a week. She has been treated a couple of times for acute gastroenteritis in the hospital recently. The patient has been treated with IV Lasix twice a day. Her condition has improved remarkably and her appetite is practically normal. She is up and about and has no symptoms of CHF. REVIEW OF SYSTEMS: CONSTITUTIONAL: No night sweats.Weakness and fatigue. No fever or chills. HEENT: Eyes: No visual changes. No eye pain. No eye discharge. ENT: No runny nose. No epistaxis. No sinus pain. No sore throat. No odynophagia. No congestion. RESPIRATORY: No cough, no congestion. No hemoptysis. CARDIOVASCULAR: No angina symptoms. No CHF symptoms. No atypical chest pain for CAD. No palpitations. No shortness of breath. GASTROINTESTINAL: No abdominal pain. No nausea or vomiting. No diarrhea or constipation. No hematemesis. No hematochezia. GENITOURINARY: No urgency. No frequency. No dysuria. No hematuria. No obstructive symptoms. No discharge. No pain. No significant abnormal bleeding. MUSCULOSKELETAL: No musculoskeletal pain; no joint swelling. NEUROLOGICAL: No headache. No neck pain. No syncope. No seizures. No dizziness. PSYCHIATRIC: Not anxious. No depression. No suicidal thoughts. No homicidal thoughts. SKIN: No rash. No lesions. No wounds. ENDOCRINE: No unexplained weight loss. No weight gain. HEMATOLOGIC/LYMPHATIC: No anemia. No purpura. No petechiae. No prolonged or excessive bleeding. No palpable lymph nodes. PHYSICAL EXAMINATION: GENERAL: The patient is oriented to time, place and person. VITAL SIGNS: Temperature 97.8, pulse 64, respiratory rate 18, blood pressure 102/56 and pulse ox 96%. HEENT: Head normocephalic, atraumatic. Eyes: Extraocular muscles are intact. Pupils are equal, round and reactive to light and accommodation. Ears: No lesions. Nose appeared normal. Throat: No exudate or erythema. Looks somewhat pale. NECK: Supple. No JVP, no carotid bruit. No lymphadenopathy or thyromegaly. LUNGS: Decreased breath sounds but clear to auscultation. Percussion note normal. Chest symmetrical. HEART: S1, S2, no S3. Grade II to III/ systolic ejection murmur. No cyanosis or clubbing. No ascites. Pulses: Dorsalis pedis and posterior tibial pulses +1 to +2 both sides. ABDOMEN: Soft. Nontender. Bowel sounds active. No CVA tenderness. No mass felt. EXTREMITIES: No edema. Full range of motion of all extremities, equal. NEUROLOGIC: No focal deficit. Cranial nerves II through XII are grossly intact. No headache, no double vision or headache. SKIN: Not dry. Intact. Turgor - normal. LYMPHATIC: No palpable lymph nodes/no lymphedema. MUSCULOSKELETAL: Normal joints with no swelling. Muscle tone is normal. LABS: hgb 12.8, hct 37, WBC 7,800 normal differential, creatinine 1, BUN 28 and potassium 4.8. ASSESSMENT: 1. Acute congestive heart failure with pulmonary edema and respiratory failure 2. Severe aortic stenosis 3. Atrial fibrillation 4. Pacemaker PLAN: 1. Continue IV Lasix 2. Continue the rest of the medications. 3. The patient does not want any intubation or respirator in case of cardiopulmonary arrest. The was also explained to the nursing staff. Document that. Again about the patient was explained about her CHF and tight aortic stenosis which seems to be the main contributing factor. She is strongly advised to have evaluation by Cardiothoracic surgeon. Possibility of transvalvular replacement or regular aortic valve replacement. Otherwise the prognosis is poor. The patient has clearing indicated that I understand that because that has been told to her for past several hundred times in past couple of years. She says that she wants to go home and think about it and she would let me know at her return office visit. CONDITION: Stable. TIME SPENT: More than 30 minutes. Plan and coordination of the patient's care discussed in the presence of nurse. OLLIE
[2016-10-02 10:41] VITALS: BP 110/72; TEMP 98
--- NOTE | 2016-10-02 13:19 | PCM.PROG ---
Attending Provider: ATTENDING PROVIDER: Dr. KEVIN DRAKE DATE OF SERVICE: 10/02/16 SUBJECTIVE: This 81 year old WHITE/ F was hospitalized 09/29/16. The patient is hospitalized with CHF. CHF has completely resolved with no symptoms of it. No fever, no chills. UA is abnormal with E.coli. Will put the patient on Cipro. She will be on Lasix 40 mg daily. REVIEW OF SYSTEMS: CONSTITUTIONAL: No night sweats. No fatigue, malaise, lethargy. No fever or chills. HEENT: Eyes: No visual changes. No eye pain. No eye discharge. ENT: No runny nose. No epistaxis. No sinus pain. No odynophagia. No congestion. RESPIRATORY: No cough, no congestion. No hemoptysis. CARDIOVASCULAR: No angina symptoms. No CHF symptoms. No atypical chest pain for CAD. No palpitations. No shortness of breath. GASTROINTESTINAL: No abdominal pain. No nausea or vomiting. No diarrhea or constipation. No hematemesis. No hematochezia. GENITOURINARY: No urgency. No frequency. No dysuria. No hematuria. No obstructive symptoms. No discharge. No pain. No significant abnormal bleeding. MUSCULOSKELETAL: No musculoskeletal pain; no joint swelling. NEUROLOGICAL: Awake, alert, oriented to time, place and person. No headache. No neck pain. No syncope. No seizures. No dizziness. PSYCHIATRIC: Not anxious. No depression. No suicidal thoughts. No homicidal thoughts. SKIN: No rash. No lesions. No wounds. ENDOCRINE: No unexplained weight loss. No weight gain. HEMATOLOGIC/LYMPHATIC: No anemia. No purpura. No petechiae. No prolonged or excessive bleeding. No palpable lymph nodes. PHYSICAL EXAMINATION: GENERAL: The patient is awake, alert and oriented, sitting in chair in no distress. VITAL SIGNS: Temperature 98.1 F, Pulse 60, Respiratory Rate 16, BP 96/49, Pulse Ox 98% HEENT: Head normocephalic, atraumatic. Eyes: Extraocular muscles are intact. Pupils are equal, round and reactive to light and accommodation. Ears: No lesions. Nose appeared normal. Throat: No exudate or erythema. NECK: Supple. No JVD, no carotid bruit. No lymphadenopathy or thyromegaly. LUNGS: Clear to auscultation. Percussion note normal. Chest symmetrical. HEART: S1, S2, no S3. Grade III/ systolic murmur. No cyanosis or clubbing. No ascites. Pulses: Dorsalis pedis and posterior tibial pulses +1 to +2 both sides. ABDOMEN: Soft. Non-tender. Bowel sounds active. No CVA tenderness. No mass felt. EXTREMITIES: No edema. Full range of motion of all extremities, equal. NEUROLOGIC: No focal deficit. Cranial nerves II through XII are grossly intact. No headache, no double vision or headache. SKIN: Not dry. Intact. Turgor-normal. LYMPHATIC: No palpable lymph nodes/no lymphedema. MUSCULOSKELETAL: Normal joints with no swelling. Muscle tone is normal. LAB REVIEW: 10/02/16 05:30 10/02/16 05:30 10/02/16 05:30: WBC 7.29, RBC 3.88 L, Hgb 12.0, Hct 35.3 L, MCV 91.0, MCH 30.9, MCHC 34.0, RDW Coeff of Megan 14.2, Plt Count 124 L, Immature Gran % (Auto) 0.4, Neut % (Auto) 48.4, Lymph % (Auto) 32.1, [place] % (Auto) 5.5, Eos % (Auto) 12.9 H , Baso % (Auto) 0.7, Immature Gran # (Auto) 0.0, Neut # 3.5, Lymph # 2.3, [place] # 0.4, Eos # 0.9 H, Baso # 0.1, PT 17.6 H, INR 1.71, Sodium 135 L, Potassium 3.8 , Chloride 94 L, Carbon Dioxide 32 H, Anion Gap 12.8, BUN 25 H, Creatinine 1.17 , Estimated GFR (MDRD) 45.00, BUN/Creatinine Ratio 21.36, Glucose 118 H, Calcium 9.3, Total Bilirubin 1.76 H, AST 28, ALT 10 L, Alkaline Phosphatase 52 L , Total Protein 5.8, Albumin 3.0 L, Globulin 2.8, Albumin/Globulin Ratio 1.07 ASSESSMENT: 1. CHF under control with treatment. 2. UA is positive for bacteruria - will cover with Cipro 250 mg b.i.d. for five days. 3. Severe aortic stenosis. 4. Atrial fibrillation. 5. Pacemaker. PLAN: 1. Discharge home. 2. Instructed the patient to weigh herself daily. 3. Instructed the patient that if she becomes short of breath she may take an extra Lasix 40 mg and come to Emergency Room. 4. Cipro 250 mg daily b.i.d. for five days. 5. Will see the patient back in the office in 3 days. 6. Continue all medications as instructed. Plan and coordination of the patient's care discussed in the presence of Noodle Maker and nurse. EDUCATION: Discussed plan of care and medications with the patient. Advised that CHF is from the valve problem, which the patient states that she doesn't want anything to be done about this; that she does not want any tube put in or be put on the respirator. CHF education carried out. CONDITION: Stable SCRIBED BY: SHERYL HENSON [employer] Teacher scribed while in presence of service performed by Dr. KEVIN DRAKE on 10/02/16 ([id number])
--- NOTE | 2016-10-02 13:46 | CM.DICTOOL ---
ADMISSION: 09/29/16 23:19 DISCHARGE: 10/02/16 DATE OF SERVICE: 10/02/16 FINAL DIAGNOSIS ACUTE RESPIRATORY FAILURE ACUTE PULMONARY EDEMA SEVERE AORTIC STENOSIS/CARDIOMEGALY CONGESTIVE HEART FAILURE HYPERTENSION ATRIAL FIBRILLATION GASTROENTERITIS (09/24/16 HOSPITALIZATION-[facility]) DEHYDRATION (09/24/16 HOSPITALIZATION - [facility]) COPD LINGULAR LUNG NODULE 1.1 CM (CT CHEST 09/29/16) HYPERTHROIDISM ANEMIA GALLBLADDER DYSFUNCTION PACEMAKER INSERTION/AICD CERVICAL FRACTURE AND SURGERY CATARACT EXTRACTIONS HYSTERECTOMY LAST VITALS Temp Pulse Resp BP Pulse Ox 98.1 F 62 18 96/49 L 98 10/02/16 06:00 10/02/16 08:48 10/02/16 08:00 10/02/16 06:00 10/02/16 06:00 ACTIVE HOME MEDICATIONS Acetaminophen/Hydrocodone Bitart ([place] 5-325) 1 tab PO 5XD PRN PRN Reason: Mild Pain Last Admin: 10/01/16 22:33 Dose: 1 tab Magnesium Carbonate/Al Hydroxide (Gsviscon Es Tab Ches) 1 ea PO DAILY PRN Alprazolam (Xanax) 1 mg PO BID PRN PRN Reason: Anxiety Last Admin: 10/01/16 20:30 Dose: 1 mg Calcium Carbonate (Calcium) 500 mg PO DAILY Digoxin (Lanoxin) 250 mcg PO [id number] [facility] Last Admin: 10/02/16 08:48 Dose: 250 mcg Furosemide (Lasix) 40 mg PO DAILYAC [facility] Last Admin: 10/02/16 06:12 Dose: 40 mg Meclizine HCl (Antivert) 25 mg PO TID PRN PRN Reason: Dizziness [place]-3 Fatty Acids/Fish Oil 1000 mg PO DAILY Omeprazole (Prilosec) 20 mg PO QDAC [facility] Last Admin: 10/02/16 06:11 Dose: 20 mg Ondansetron HCl (Zofran Tab) 4 mg PO Q6H PRN PRN Reason: Nausea / Vomiting Propranolol HCl (Inderal) 40 mg PO BID [facility] Last Admin: 10/02/16 08:49 Dose: 40 mg Propylthiouracil (Propylthiouracil) 50 mg PO DAILY [facility] Last Admin: 10/02/16 08:49 Dose: 50 mg Valsartan (Diovan) 80 mg PO DAILY [facility] Last Admin: 10/02/16 08:50 Dose: 80 mg Warfarin Sodium (Coumadin) 3 mg PO QPM [facility] Last Admin: 10/01/16 17:07 Dose: 3 mg ALLERGIES ciprofloxacin [From Cipro] Adverse Reaction (Verified 09/29/16 21:22) ciprofloxacin HCl [From Cipro] Adverse Reaction (Verified 09/29/16 21:22) propoxyphene HCl [From Darvon] Adverse Reaction (Verified 09/29/16 21:22) NEW PRESCRIPTIONS: CIPRO 250 MG, TAKE ONE TABLET BY MOUTH EVERY 12 HOURS FOR 5 (FIVE) DAYS THE PATIENT HAS RECEIVED INSTRUCTION THAT SHE MAY TAKE ONE EXTRA LASIX 40 MG DAILY IF NEEDED FOR FEET/LEG EDEMA OR SHORTNESS OF BREATH. SMOKING: NONSMOKER DISEASE SPECIFIC EDUCATION: ACUTE RESPIRATORY FAILURE CONGESTIVE HEART FAILURE VALVULAR CARDIOMYOPATHY HOME MEDICATIONS NEW PRESCRIPTIONS FOLLOW UP DISCUSSION WAS HELD WITH THE PATIENT REGARDING HER SEVERE AORTIC STENOSIS AND FUTURE PLANS FOR TREATMENT. SHE HAS VERBALIZED IN THE PRESENCE OF NURSING STAFF , CASE MANAGEMENT AND MYSELF THAT SHE DOES NOT WANT TO PROCEED WITH ANY INVASIVE TREATMENT FOR THIS. SHE MADE MENTION THAT HER FAMILY MAY NOT AGREE WITH HER DECISION, BUT THAT SHE HOLDS TO IT DESPITE THIS. WE HAVE ASSURED MS. LICONA THAT WE WILL FOLLOW HER WISHES REGARDING HER CARDIAC CONDITION. SHE HAS RECEIVED INSTRUCTION REGARDING TAKING ONE EXTRA LASIX IF NEEDED DAILY FOR FEET/LEG EDEMA OR SHORTNESS OF BREATH. SHE HAS ALSO BEEN INSTRUCTED TO NOTIFY THE OFFICE OR GO TO ER IF SHE FEELS HER SYMPTOMS WARRANT. LAB REVIEW: 10/02/16 05:30 10/02/16 05:30 10/02/16 05:30: WBC 7.29, RBC 3.88 L, Hgb 12.0, Hct 35.3 L, MCV 91.0, MCH 30.9, MCHC 34.0, RDW Coeff of Megan 14.2, Plt Count 124 L, Immature Gran % (Auto) 0.4, Neut % (Auto) 48.4, Lymph % (Auto) 32.1, [place] % (Auto) 5.5, Eos % (Auto) 12.9 H , Baso % (Auto) 0.7, Immature Gran # (Auto) 0.0, Neut # 3.5, Lymph # 2.3, [place] # 0.4, Eos # 0.9 H, Baso # 0.1, PT 17.6 H, INR 1.71, Sodium 135 L, Potassium 3.8 , Chloride 94 L, Carbon Dioxide 32 H, Anion Gap 12.8, BUN 25 H, Creatinine 1.17 , Estimated GFR (MDRD) 45.00, BUN/Creatinine Ratio 21.36, Glucose 118 H, Calcium 9.3, Total Bilirubin 1.76 H, AST 28, ALT 10 L, Alkaline Phosphatase 52 L , Total Protein 5.8, Albumin 3.0 L, Globulin 2.8, Albumin/Globulin Ratio 1.07 PLAN: DISCHARGE HOME TODAY RETURN TO SEE DR. DRAKE IN HIS OFFICE FOR FOLLOW UP ON 10/06/16 AT 10:15 A.M. RESUME YOUR HOME MEDICATIONS PER LIST PROVIDED BY THE NURSING STAFF YOU MAY TAKE ONE EXTRA LASIX 40 MG DAILY FOR SWELLING OF YOUR FEET/LEGS OR SHORTNESS OF BREATH (PATIENT SAYS SHE HAS AN AMPLE SUPPLY OF LASIX AT HOME AND WILL NOT NEED AN NEW PRESCRIPTION FOR THIS) NEW PRESCRIPTIONS: CIPRO 250 MG, TAKE ONE TABLET BY MOUTH EVERY 12 HOURS FOR 5 (FIVE) DAYS ACTIVITY: GET PLENTY OF REST AT HOME. GRADUALLY INCREASE YOUR ACTIVITY LEVEL ACCORDING TO YOUR TOLERATION KEEP YOUR FEET/LEGS ELEVATED MUCH POSSIBLE DIET: HEALTHY HEART SUMMARY: THE PATIENT IS ALERT AND ORIENTED X3. SHE CURRENTLY RESIDES AT HOME ALONE. SHE CONTINUES TO BE ABLE TO DRIVE A VEHICLE SHORT DISTANCES. SHE HAS A HOMEMAKER THROUGH [employer]. SHE RECEIVES HOMEMAKING ASSISTANCE 2 HOURS PER DAY FOR 5 DAYS PER WEEK. SHE HAS A CANE, ROLLING WALKER , SHOWER CHAIR, PORTABLE SPRAYER FOR THE SHOWER. HER LIVING QUARTERS ARE ON ONE LEVEL AND WITHOUT STAIRS. SHE REQUIRES OXYGEN AT NIGHT ONLY AND HAS THIS EQUIPMENT IN PLACE AT HOME WITH AMPLY SUPPLY. SHE DESIRES TO RETURN HOME AT DISCHARGE. THE PATIENT'S SKIN TURGOR IS INTACT. HYDRATION STATUS IS IMPROVED. SHE HAS NO DECUBITUS ULCERS AT DISCHARGE. SHE IS AFEBRILE AND OFFERS NO COMPLAINTS OF PAIN OR DISCOMFORT. SHE IS AGREEABLE FOR DISCHARGE HOME TODAY. KEVIN DRAKE M.D.
--- NOTE | 2016-10-07 14:58 | DS ---
DATE OF SERVICE: FINAL DIAGNOSIS: 1. ACUTE RESPIRATORY FAILURE 2. ACUTE PULMONARY EDEMA 3. SEVERE AORTIC STENOSIS/CARDIOMEGALY 4. CONGESTIVE HEART FAILURE 5. HYPERTENSION 6. ATRIAL FIBRILLATION 7. GASTROENTERITIS (09/24/16 HOSPITALIZATION - [facility]) 8. DEHYDRATION 9. COPD 10. LINGULAR LUNG NODULE 1.1 CM (CT CHEST 09/29/16) 11. HYPERTHYROIDISM 12. ANEMIA 13. GALLBLADDER DYSFUNCTION 14. PACEMAKER INSERTION/AICD 15. CERVICAL FRACTURE AND SURGERY 16. CATARACT EXTRACTIONS 17. HYSTERECTOMY DISCHARGE INSTRUCTIONS: Followup appointment in days with Dr. Villagran in his office on 10/06/16 at 10:15 a.m. MEDICATIONS AT DISCHARGE: 1. Valsartan (Diovan) 80 mg p.o. daily 2. Alprazolam (Xanax) 1 mg p.o. b.i.d. p.r.n. 3. Propranolol (Inderal) 40 mg p.o. b.i.d. 4. Digoxin (Lanoxin) 250 mcg p.o. Txa-Vext-Juevn-Fri-Sat 5. Propylthiouracil 50 mg p.o. daily 6. Meclizine (Antivert) 25 mg p.o. t.i.d. p.r.n. 7. Warfarin (Coumadin) 3 mg p.o. daily 8. Omeprazole (Prilosec) 20 mg p.o. q.d a.c. 9. Ondansetron (Zofran) 4 mg p.o. q.6h p.r.n. 10. Magnesium Carbonate/Al Hydrox (Gaviscon) one each p.o. daily p.r.n. 11. Hydrocodone/Acetaminophen (Maybee 5-325) one each tablet 5-325 p.o. 5 times a day p.r.n. NEW PRESCRIPTIONS: 1. Cipro 250 mg, take one tablet by mouth every 12 hours for 5 days. DIET INSTRUCTIONS: Healthy heart ACTIVITY: Get plenty of rest at home. Gradually increase your activity level according to your toleration. Keep feet and legs elevated as much as possible. SMOKING: Nonsmoker DISEASE SPECIFIC EDUCATION: 1. Acute respiratory fasilure 2. Congestive heart failure 3. Valvular cardiomyopathy 4. Home medications 5. New prescriptions 6. Follow up HOSPITAL COURSE: 81-year-old white female was hospitalized with acute pulmonary edema, acute respiratory failure secondary to tight aortic stenosis. The patient was given IV Lasix. The patient has been on Lasix p.o. 20 mg three times a week. At time of discharge, the dose was increased to 40 mg p.o. daily. The patient's condition improved. The patient has tight aortic stenosis. She was explained about strong possibility of her having CHF secondary to valvular problems. She has declined to have anything done about it. She says she will think and let me know on followup. This patient's pacemaker is capturing and sensing well. The patient's other cardiovascular problems are stable. The patient does not want any intubation or respirator in case of cardiopulmonary arrest. She would like to have other things done except for intubation or respirator. LABS ON DISCHARGE: Hemoglobin 12, hematocrit 35, WBC 7,200, normal differential. Creatinine 0.9, BUN 22, potassium 4, glucose 83. The patient's oxygen saturation on room air 98 %. The patient's lungs were clear. She had Grade III/ systolic murmur as usual at apex and right sternal border. No symptoms of CHF noted. CONDITION: Stable. Prognosis: Poor. TIME SPENT: More than 60 minutes. MTDD
== END 2016-10-02 12:15 | disposition home or self-care (01) | DRG 189 ==
LOC: ED 20:49 → MEDSURG B 23:19 → MEDSURG A 09-30 10:20
PROVIDERS: ADMIT Internal Medicine; ATTEND Internal Medicine
DX: J96.00 Acute respiratory failure, unspecified whether with hypoxia or hypercapnia (principal); J81.0 Acute pulmonary edema; I42.8 Other cardiomyopathies; I35.0 Nonrheumatic aortic (valve) stenosis; I51.7 Cardiomegaly; I48.91 Unspecified atrial fibrillation; I50.9 Heart failure, unspecified; R82.71 Bacteriuria; B96.20 Unspecified Escherichia coli [E. coli] as the cause of diseases classified elsewhere; I10 Essential (primary) hypertension; E86.0 Dehydration; J44.9 Chronic obstructive pulmonary disease, unspecified; R91.1 Solitary pulmonary nodule; E05.90 Thyrotoxicosis, unspecified without thyrotoxic crisis or storm; D64.9 Anemia, unspecified; K82.8 Other specified diseases of gallbladder; Z79.01 Long term (current) use of anticoagulants; Z79.899 Other long term (current) drug therapy; Z95.810 Presence of automatic (implantable) cardiac defibrillator
CPT/HCPCS: 36415; 80053; 81001; 82550; 82803; 83880; 84443; 84484; 85025; 85379; 85610; 87081; 87086; 87186; 93005; 93010; 96374; 96375; 99285

== ENCOUNTER 2016-10-27 10:40 | Outpatient (CLI) | END 2016-10-27 10:41 | LOC: AMBL 10:40 | PROVIDERS: ATTEND Emergency Medicine | DX: M62.81 Muscle weakness (generalized) (principal) ==

== ENCOUNTER 2016-11-09 22:01 | Observation (INO) ==
[2016-11-09 22:47] LABS: BASOPHILS # (AUTO) 0.1 K/uL (0-0.2); BASOPHILS % (AUTO) 0.8 % (0.0-3.0); EOSINOPHILS # (AUTO) 0.3 K/ul (0.0-0.7); EOSINOPHILS % (AUTO) 4.3 % (0.0-7.0); HEMATOCRIT 38.5 % (37.0-47.0); HEMOGLOBIN 13.1 g/dl (12.0-16.0); LYMPHOCYTES # (AUTO) 2.1 K/uL (0.60-3.4); LYMPHOCYTES % (AUTO) 34.6 (10.0-50.0); MEAN CORPUSCULAR HEMOGLOBIN 30.8 pg (27.0-31.0); MEAN CORPUSCULAR VOLUME 90.6 fl (81.0-99.0); MONOCYTES # (AUTO) 0.4 K/uL (0.4-2.0); MONOCYTES % (AUTO) 5.8 (0-10); NEUTROPHILS # (AUTO) 3.3 K/ul (2.0-6.9); NEUTROPHILS % (AUTO) 54.5; PLATELET COUNT 109 10^3/uL (140-440); RED BLOOD COUNT 4.25 10^6/ul (4.20-5.40); WHITE BLOOD COUNT 6.01 K/ul (4.6-10.2)
--- NOTE | 2016-11-09 23:00 | CT ---
EXAM: CT head without contrast. HISTORY: Altered mental status. PROCEDURE: Contiguous axial CT images of the head without contrast. FINDINGS: There is diffuse cerebral atrophy. The ventricles and basal cisterns are normal in size a nd configuration. No evidence of mass or midline shift. No intracranial hemorrhage or evidence of large vessel infarct. No extra-axial fluid collection. There are chronic small vessel ischemic celeste nges in the white matter. The paranasal sinuses and mastoid air cells are well-aerated. Impression: No intracranial hemorrhage or evidence of large vessel infarct. Chronic small vessel ischemic changes. Diffuse cerebral atrophy.
[2016-11-09 23:13] LABS: ALBUMIN 3.3 g/dL (3.4-5.0); ALBUMIN/GLOBULIN RATIO 1.1; ANION GAP 14.9; BILIRUBIN,TOTAL 1.88 mg/dL (0.00-1.20); BUN/CREATININE RATIO 16.5; CALCIUM 9.6 mg/dL (8.2-10.2); CREATININE 1.03 mg/dL (0.60-1.30); POTASSIUM 3.9 mmol/L (3.5-5.10); TOTAL PROTEIN 6.3 g/dL (5.8-8.1); TROPONIN I 0.226 ng/ml (0.0000-0.4000)
[2016-11-09 23:30] LABS: BILIRUBIN,URINE Negative (NEGATIVE); KETONES,URINE Negative (NEGATIVE); LEUKOCYTE ESTERASE ,URINE Negative (NEGATIVE); NITRITE,URINE Negative (NEGATIVE); PH,URINE 6.5 (5-9); PROTEIN,URINE Negative (NEGATIVE); URINE, BLOOD Trace-intact (NEGATIVE)
[2016-11-09 23:40] LABS: ADD URINE MICROSCOPIC YES
--- NOTE | 2016-11-09 23:43 | ED.PDOC ---
General ED Provider: Dr. CAT SHARIF Chief Complaint: Behavioral Complaint Stated Complaint: Patient was not feeling by herself, more confused per family, on arrival she is AAO x 3 . Time Seen by Physician: 23:41 Mode of Arrival: Ambulance Information Source: Patient, EMT Primary Care Provider: KEVIN DRAKE Nursing and Triage Documentation Reviewed and Agree: Yes Neurological Complaint Exam - Altered Mental Status Complaint/Exam Current Mental Status: Confusion Onset: Sudden Symptoms Are: Resolved Timing: Intermittent Episodes Lasting: Hours Initial Severity: Moderate Current Severity: None Eye Deviation Present: No Character: Reports: Confusion Aggravating: Reports: None Alleviating: Reports: Spontaneous resolution Associated Signs and Symptoms: Denies: Dizziness, Weakness, Headache, Fever, Illness, Nuchal rigidity, Seizure, Nausea, Vomiting, Recently depressed, Trauma Cardiac Risk Factors: Reports: Hypertension, CHF, CAD CVA Risk Factors: Reports: Hypertension, Valvular Heart Disease Related Surgical History: Reports: None Carotid Bruit Present: No Nystagmus Present: No Gag Reflex Present: No Meningeal Signs Positive: No Focal Weakness: Present: None Focal Sensory Loss: Present: None Gait: Normal Wszwyr-[id number]-Wadr: Normal Findings Romberg Test Positive: No Babinski Sign: Negative Right, Negative Left Signs of Injury: Present: Normal findings Differential Diagnoses: Metabolic Disorder, Medication reaction, TIA, CVA, Other (chf) Review of Systems - Review Of Systems Constitutional: Reports: Malaise Eyes: Reports: No symptoms Ears, Nose, Mouth, Throat: Reports: No symptoms Respiratory: Reports: No symptoms Cardiac: Reports: Edema GI: Reports: No symptoms : Reports: No symptoms Musculoskeletal: Reports: No symptoms Skin: Reports: No symptoms Neurological: Reports: Weakness Endocrine: Reports: No symptoms Hematologic/Lymphatic: Reports: No symptoms All Other Systems: Reviewed and Negative Past Medical History - Past Medical History Previously Healthy: No Endocrine: Reports: None Cardiovascular: Reports: CHF, A-Fib Respiratory: Reports: None Hematological: Reports: Anemia Gastrointestinal: Reports: None Genitourinary: Reports: CKD Neuro/Psych: Reports: None Musculoskeletal: Reports: None Cancer: Reports: None Last Menstrual Period: post menopausal - Surgical History General Surgical History: Reports: Hysterectomy, Pacemaker, Orthopedic ( fracture neck with surgery), Other (Cataract surgery ) - Family History Family History: Reports: None - Social History Smoking Status: Never smoker Hx Substance Use: No Alcohol Screening: None - Immunizations Tetanus Shot up to Date: No (unsure) Physical Exam - Physical Exam Appearance: Ill-appearing, Thin Pain Distress: Mild Eyes: EOMI, Conjunctiva clear ENT: Ears normal, Nose normal, Oropharynx normal Respiratory: Breath sounds diminished, Crackles Cardiovascular: RRR, Pulses normal, No rub, No murmur GI/: Soft, Nontender, No masses, Bowel sounds normal, No Organomegaly Musculoskeletal: Normal strength, ROM intact, No edema, No calf tenderness Skin: Warm, Dry, Normal color Neurological: Sensation intact, Motor intact, Reflexes intact, Cranial nerves intact, Alert, Oriented Psychiatric: Affect appropriate, Mood appropriate Interpretation - Radiology Interpretation Radiology Interpretation By: Radiologist Radiology Results: Negative Exam Interpreted: CT Scan Critical Care Note - Critical Care Note Total Time (mins): 0 Course - Course Hematology/Chemistry: 11/09/16 22:47 11/09/16 22:47 Orders, Labs, Meds: Lab Review 11/09/16 11/09/16 11/09/16 22:47 23:17 23:25 WBC 6.01 RBC 4.25 Hgb 13.1 Hct 38.5 MCV 90.6 MCH 30.8 MCHC 34.0 RDW Coeff of Megan 13.4 Plt Count 109 L Immature Gran % (Auto) 0.0 Neut % (Auto) 54.5 Lymph % (Auto) 34.6 [place] % (Auto) 5.8 Eos % (Auto) 4.3 Baso % (Auto) 0.8 Immature Gran # (Auto) 0.0 Neut # 3.3 Lymph # 2.1 [place] # 0.4 Eos # 0.3 Baso # 0.1 D-Dimer 1.04 Sodium 139 Potassium 3.9 Chloride 99 Carbon Dioxide 29 Anion Gap 14.9 BUN 17 Creatinine 1.03 Estimated GFR (MDRD) 52.00 BUN/Creatinine Ratio 16.50 Glucose 97 Calcium 9.6 Total Bilirubin 1.88 H AST 38 H ALT 14 Alkaline Phosphatase 86 Total Creatine Kinase 36 Troponin I 0.2260 B-Natriuretic Peptide 1098 H Total Protein 6.3 Albumin 3.3 L Globulin 3.0 Albumin/Globulin Ratio 1.10 Urine Color Yellow Urine Clarity Clear Urine pH 6.5 Ur Specific [place] 1.010 Urine Protein Negative Urine Glucose (UA) Negative Urine Ketones Negative Urine Blood Trace-intact Urine Nitrite Negative Urine Bilirubin Negative Urine Urobilinogen 1.0 Ur Leukocyte Esterase Negative Urine Microscopic RBC 2-5 Ur Squamous Epith Cells Not present Orders Category Date Time Status ABG DRAW REQUEST Stat CARDIO 11/09/16 23:16 Ordered ABG Stat LAB 11/09/16 23:16 Ordered B-TYPE NATRIURETIC PEPTIDE Stat LAB 11/09/16 23:17 Completed CBC W/ AUTO DIFF Stat LAB 11/09/16 22:47 Completed COMPREHENSIVE METABOLIC PANEL Stat LAB 11/09/16 22:47 Completed CREATINE KINASE Stat LAB 11/09/16 22:47 Completed D-DIMER Stat LAB 11/09/16 22:47 Completed TROPONIN I Stat LAB 11/09/16 22:47 Completed UA [URINALYSIS C & S IF INDICATED] Stat LAB 11/09/16 23:25 Completed CHEST, 1V AP ONLY Stat RADS 11/09/16 22:[address] HEAD W/O CONTRAST Stat RADS 11/09/16 22:09 Completed Vital Signs: Temp Pulse Resp BP Pulse Ox 11/09/16 22:02 99.2 F 61 18 115/58 L 90 L Departure - Departure Time of Disposition: 00:05 Disposition: PLACED OBSERVATION Discharge Problem: Valvular cardiomyopathy Acute respiratory failure Qualifiers: Respiratory failure complication: hypoxia Qualifier Code: (J96.01) Acute respiratory failure with hypoxia Condition: Stable Pt referred to PMD for follow-up: No Allergies/Adverse Reactions: Allergies ciprofloxacin [From Cipro] Adverse Reaction (Verified 11/09/16 22:13) ciprofloxacin HCl [From Cipro] Adverse Reaction (Verified 11/09/16 22:13) propoxyphene HCl [From Darvon] Adverse Reaction (Verified 11/09/16 22:13) Home Medications: Ambulatory Orders Alprazolam [Xanax] 1 mg PO BID PRN 04/26/13 Digoxin [Lanoxin] 250 mcg PO MOTUTHFRSA 04/26/13 Propranolol HCl [Inderal] 40 mg PO BID 04/26/13 Valsartan [Diovan] 80 mg PO DAILY 04/26/13 Propylthiouracil 50 mg PO DAILY 04/17/14 Meclizine HCl [Antivert] 25 mg PO TID PRN #30 tablet 05/24/14 Warfarin Sodium [Coumadin] 3 mg PO DAILY 07/17/16 Magnesium Carbonate/Al Hydrox [Gaviscon Es Tablet Chew] 1 each PO DAILY PRN Omeprazole [Prilosec] 20 mg PO QDAC 09/11/16 Ondansetron HCl [Zofran] 4 mg PO Q6H PRN 09/11/16 Hydrocodone/Acetaminophen [[place] 5-325 Tablet] 5 - 325 each PO 5XD PRN 09/29/16 Calcium Carbonate [Calcium] 500 mg PO 09/30/16 [place]-3 Fatty Acids/Fish Oil [Fish Oil 1,000 mg Capsule] 2 each PO 09/30/16 Furosemide [Lasix Tab] 40 mg PO QDAC #40 tablet 10/02/16 Disposition Discussed With: Patient, Family
[2016-11-10] MEDS ORDERED: LASIX IVP STA (00:04)
[2016-11-10 00:48] LABS: ABG BASE EXCESS 3 (-2.0-2.0); ABG HCO3 26.9 (22.0-26.0); ABG PH 7.457 (7.35-7.45)
[2016-11-10 00:49] LABS: ABG TCO2 28 (22.0-28.0)
[2016-11-10 01:33] VITALS: BMI 24.9
--- NOTE | 2016-11-10 03:19 | DI ---
EXAM: AP single view of the chest. HISTORY: Cough. FINDINGS: There is a two lead pacemaker. The bony structures are unremarkable. The cardiac silhoue tte is mildly enlarged. There is a calcified cardiac valve. Pulmonary vasculature is within normal limits. The costophrenic angles are clear. There is minimal atelectasis and/or pneumonia in the rig ht upper lobe. Impression: Minimal right upper lobe atelectasis and/or pneumonia. Cardiomegaly.
[2016-11-10] MEDS: DUONEB NEB SCH ×4 (05:48→23:13)
[2016-11-10 06:40] LABS: BASOPHILS # (AUTO) 0.1 K/uL (0-0.2); BASOPHILS % (AUTO) 0.8 % (0.0-3.0); EOSINOPHILS # (AUTO) 0.3 K/ul (0.0-0.7); EOSINOPHILS % (AUTO) 4.3 % (0.0-7.0); HEMATOCRIT 37.1 % (37.0-47.0); HEMOGLOBIN 12.5 g/dl (12.0-16.0); IMMATURE GRANULOCYTE % (AUTO) 0.2 % (0.0-5.0); LYMPHOCYTES # (AUTO) 2.1 K/uL (0.60-3.4); LYMPHOCYTES % (AUTO) 33.3 (10.0-50.0); MEAN CORPUSCULAR HEMOGLOBIN 30.4 pg (27.0-31.0); MEAN CORPUSCULAR HGB CONC 33.7 (31.8-35.4); MEAN CORPUSCULAR VOLUME 90.3 fl (81.0-99.0); MONOCYTES # (AUTO) 0.5 K/uL (0.4-2.0); MONOCYTES % (AUTO) 7.9 (0-10); NEUTROPHILS # (AUTO) 3.4 K/ul (2.0-6.9); NEUTROPHILS % (AUTO) 53.5; PLATELET COUNT 105 10^3/uL (140-440); RED BLOOD COUNT 4.11 10^6/ul (4.20-5.40); WHITE BLOOD COUNT 6.33 K/ul (4.6-10.2)
[2016-11-10 06:59] LABS: ALBUMIN 3.1 g/dL (3.4-5.0); ALBUMIN/GLOBULIN RATIO 1.19; ANION GAP 13.5; BILIRUBIN,TOTAL 2.33 mg/dL (0.00-1.20); BUN/CREATININE RATIO 17.52; CALCIUM 9.3 mg/dL (8.2-10.2); CREATININE 0.97 mg/dL (0.60-1.30); POTASSIUM 3.5 mmol/L (3.5-5.10); TOTAL PROTEIN 5.7 g/dL (5.8-8.1)
[2016-11-10 07:05] LABS: TROPONIN I 0.261 ng/ml (0.0000-0.4000)
[2016-11-10] MEDS ORDERED: ZOFRAN TAB PO PRN (08:47)
[2016-11-10] MEDS ORDERED: DIGOXIN 250 MCG PO SCH (09:00)
[2016-11-10] MEDS ORDERED: COUMADIN PO SCH ×2 (09:00→17:00)
[2016-11-10] MEDS ORDERED: DIOVAN PO SCH (09:00)
[2016-11-10] MEDS: CELEXA PO SCH (10:49)
[2016-11-10] MEDS: LANOXIN PO SCH (10:50)
[2016-11-10] MEDS: INDERAL PO SCH ×2 (10:51→21:20)
[2016-11-10] MEDS: PROPYLTHIOURACIL PO SCH (10:51)
[2016-11-10] MEDS: LASIX TAB PO SCH (10:51)
[2016-11-10] MEDS: PRILOSEC PO SCH (10:52)
[2016-11-10] MEDS: LOVENOX SUBCUT SCH (10:53)
[2016-11-10] MEDS: DIOVAN PO SCH (10:53)
--- NOTE | 2016-11-10 11:46 | PCM.PROG ---
Attending Provider: ATTENDING PROVIDER: Dr. CAT SHARIF DATE OF SERVICE: 11/10/16 SUBJECTIVE: This 81 year old WHITE/ F was hospitalized 11/10/16. The patient is admitted with CHF and hypoxemia. The edema is less in the feet. The son is in the room. She states she took a couple of Xanax yesterday - is sleepy. The patient was at home and was weak and the family couldn't get the patient to respond well. She was brought to ER and once here at the hospital, she seemed more alert. REVIEW OF SYSTEMS: CONSTITUTIONAL: No fever, no chills. ENDOCRINE: No weight loss or weight gain. HEENT: No sinus drainage, no sore throat. CVS: No angina symptoms. No CHF symptoms. No palpitations. No atypical chest pain for CAD. No shortness of breath. RESPIRATORY: No cough, no hemoptysis. GI: No melena. No abdominal pain. No nausea, no vomiting. : No hematuria. No polyuria. SKIN: No rash. No wounds. MUSCULOSKELETAL: No pain. APPAREL CUTTER: No blackout, no dizziness. No headache. No double vision. PSYCHIATRIC: Not anxious; no depression. No suicidal thoughts. No homicidal thoughts. PHYSICAL EXAMINATION: GENERAL: Lying in bed in no distress. VITAL SIGNS: Temperature 96.9 F, Pulse 61, Respiratory Rate 19, BP 115/56, Pulse Ox 97% HEENT: Normocephalic, atraumatic. Mucosa is dry, pallor positive. NECK: No JVP, no carotid bruit. No lymphadenopathy. CARDIAC: S1, S2, no S3. No murmur, gallop or regurgitation. LUNGS: Clear to auscultation. ABDOMEN: Soft, non-tender. Bowel sounds active. No rigidity, guarding or CVA tenderness. EXTREMITIES: Trace edema. No clubbing or cyanosis. NEUROLOGIC: Sleepy but is oriented x3 LYMPHATIC: No palpable lymph nodes SKIN: Not dry. Intact. MUSCULOSKELETAL: No joint swelling. LAB REVIEW: 11/10/16 06:38 11/10/16 06:38 11/10/16 06:38: WBC 6.33, RBC 4.11 L, Hgb 12.5, Hct 37.1, MCV 90.3, MCH 30.4, MCHC 33.7, RDW Coeff of Megan 13.6, Plt Count 105 L, Immature Gran % (Auto) 0.2, Neut % (Auto) 53.5, Lymph % (Auto) 33.3, [place] % (Auto) 7.9, Eos % (Auto) 4.3, Baso % (Auto) 0.8, Immature Gran # (Auto) 0.0, Neut # 3.4, Lymph # 2.1, [place] # 0.5, Eos # 0.3, Baso # 0.1, Sodium 140, Potassium 3.5, Chloride 99, Carbon Dioxide 31, Anion Gap 13.5, BUN 17, Creatinine 0.97, Estimated GFR (MDRD) 55.00 , BUN/Creatinine Ratio 17.52, Glucose 88, Calcium 9.3, Total Bilirubin 2.33 H, AST 34, ALT 13, Alkaline Phosphatase 78, Total Creatine Kinase 31, Troponin I 0.2610, Total Protein 5.7 L, Albumin 3.1 L, Globulin 2.6, Albumin/Globulin Ratio 1.19 ASSESSMENT: 1. Status post change in mental status secondary to medications 2. Acute on chronic heart failure 3. Respiratory failure 4. Aortic stenosis, severe 5. Hypertension 6. Dyslipidemia 7. Depression PLAN: 1. [facility] consultation. 2. PT/INR. 3. Hold Xanax and Hydrocodone. 4. Hold Antivert. 5. Celexa 20 mg p.o. daily Plan and coordination of the patient's care discussed in the presence of Machine Wood Sander and nurse. CONDITION: Stable SCRIBED BY: SHERYL HENSON Radiographer Cardiac Catheterization scribed while in presence of service performed by Dr. CAT SHARIF on 11/10/16 ([id number])
[2016-11-10] MEDS ORDERED: ZOFRAN 4 MG/2 ML IVP PRN (12:56)
[2016-11-10] MEDS ORDERED: SODIUM CHLORIDE 1,000 ML IV SCH ×2 (13:00)
[2016-11-10 14:56] LABS: TROPONIN I 0.232 ng/ml (0.0000-0.4000)
[2016-11-11] MEDS: DUONEB NEB SCH ×2 (04:59→11:24)
[2016-11-11 05:05] LABS: BASOPHILS % (AUTO) 0.4 % (0.0-3.0); EOSINOPHILS # (AUTO) 0.2 K/ul (0.0-0.7); EOSINOPHILS % (AUTO) 3.3 % (0.0-7.0); HEMATOCRIT 37.4 % (37.0-47.0); HEMOGLOBIN 12.8 g/dl (12.0-16.0); IMMATURE GRANULOCYTE % (AUTO) 0.1 % (0.0-5.0); LYMPHOCYTES # (AUTO) 1.8 K/uL (0.60-3.4); LYMPHOCYTES % (AUTO) 26.5 (10.0-50.0); MEAN CORPUSCULAR HEMOGLOBIN 30.6 pg (27.0-31.0); MEAN CORPUSCULAR HGB CONC 34.2 (31.8-35.4); MEAN CORPUSCULAR VOLUME 89.5 fl (81.0-99.0); MONOCYTES # (AUTO) 0.4 K/uL (0.4-2.0); NEUTROPHILS # (AUTO) 4.2 K/ul (2.0-6.9); NEUTROPHILS % (AUTO) 63.7; PLATELET COUNT 111 10^3/uL (140-440); RED BLOOD COUNT 4.18 10^6/ul (4.20-5.40); WHITE BLOOD COUNT 6.67 K/ul (4.6-10.2)
[2016-11-11 05:15] LABS: PROTHROMBIN TIME 16.1 SEC (9.3-11.0)
[2016-11-11 05:24] LABS: ALBUMIN 3.2 g/dL (3.4-5.0); ALBUMIN/GLOBULIN RATIO 1.14; ANION GAP 14.6; BILIRUBIN,TOTAL 2.49 mg/dL (0.00-1.20); BUN/CREATININE RATIO 18.68; CALCIUM 9.2 mg/dL (8.2-10.2); CREATININE 0.91 mg/dL (0.60-1.30); POTASSIUM 3.6 mmol/L (3.5-5.10)
[2016-11-11] MEDS: LASIX TAB PO SCH (05:40)
[2016-11-11] MEDS: PRILOSEC PO SCH (05:40)
[2016-11-11] MEDS: LOVENOX SUBCUT SCH (08:53)
[2016-11-11] MEDS: CELEXA PO SCH (08:53)
[2016-11-11] MEDS: LANOXIN PO SCH (08:55)
[2016-11-11] MEDS: INDERAL PO SCH (08:56)
[2016-11-11] MEDS: PROPYLTHIOURACIL PO SCH (08:56)
[2016-11-11] MEDS: DIOVAN PO SCH (08:57)
[2016-11-11 10:17] VITALS: BP 114/76; TEMP 97.5
--- NOTE | 2016-11-11 13:10 | PCM.PROG ---
Attending Provider: ATTENDING PROVIDER: Dr. CAT SHARIF DATE OF SERVICE: 11/11/16 SUBJECTIVE: This 81 year old WHITE/ F was hospitalized 11/10/16. The patient states she slept well last night and is feeling better. She looks better today. She is much more awake and alert. Leg edema is less. REVIEW OF SYSTEMS: CONSTITUTIONAL: No fever, no chills. ENDOCRINE: No weight loss or weight gain. HEENT: No sinus drainage, no sore throat. CVS: No angina symptoms. No CHF symptoms. No palpitations. No atypical chest pain for CAD. No shortness of breath. RESPIRATORY: No cough, no hemoptysis. GI: No melena. No abdominal pain. No nausea, no vomiting. : No hematuria. No polyuria. SKIN: No rash. No wounds. MUSCULOSKELETAL: No pain. BASS FISHER: No blackout, no dizziness. No headache. No double vision. PSYCHIATRIC: Not anxious; no depression. No suicidal thoughts. No homicidal thoughts. PHYSICAL EXAMINATION: GENERAL: Lying in bed in no distress. VITAL SIGNS: Temperature 97.7 F, Pulse 60, Respiratory Rate 16, BP 104/60, Pulse Ox 94% HEENT: Normocephalic, atraumatic. Mucosa is dry, pallor positive. NECK: No JVP, no carotid bruit. No lymphadenopathy. CARDIAC: S1, S2, no S3. Systolic murmur. LUNGS: Decreased entry. Clear to auscultation. ABDOMEN: Soft, non-tender. Bowel sounds active. No rigidity, guarding or CVA tenderness. EXTREMITIES: No visible edema on legs. No clubbing, cyanosis. NEUROLOGIC: More awake and alert. LYMPHATIC: No palpable lymph nodes SKIN: Not dry. Intact. MUSCULOSKELETAL: No joint swelling. LAB REVIEW: 11/11/16 04:05 11/11/16 04:05 11/11/16 04:05: WBC 6.67, RBC 4.18 L, Hgb 12.8, Hct 37.4, MCV 89.5, MCH 30.6, MCHC 34.2, RDW Coeff of Megan 13.4, Plt Count 111 L, Immature Gran % (Auto) 0.1, Neut % (Auto) 63.7, Lymph % (Auto) 26.5, [place] % (Auto) 6.0, Eos % (Auto) 3.3, Baso % (Auto) 0.4, Immature Gran # (Auto) 0.0, Neut # 4.2, Lymph # 1.8, [place] # 0.4, Eos # 0.2, Baso # 0.0, PT 16.1 H, INR 1.56, Sodium 140, Potassium 3.6, Chloride 100, Carbon Dioxide 29, Anion Gap 14.6, BUN 17, Creatinine 0.91, Estimated GFR (MDRD) 60.00, BUN/Creatinine Ratio 18.68, Glucose 91, Calcium 9.2 , Total Bilirubin 2.49 H, AST 35, ALT 13, Alkaline Phosphatase 79, Total Protein 6.0, Albumin 3.2 L, Globulin 2.8, Albumin/Globulin Ratio 1.14 11/10/16 14:25: Total Creatine Kinase 29, Troponin I 0.2320 11/10/16 05:15: Digoxin 1.23 ASSESSMENT: 1. Status post change in mental status secondary to medications, improved 2. Acute on chronic heart failure 3. Respiratory failure 4. Aortic stenosis, severe 5. Hypertension 6. Dyslipidemia 7. Depression PLAN: 1. Discharge home 2. Change in medications: a) Xanax 0.25 mg twice a day b) Hydrocodone 0.25 twice a day from five times a day. c) Xanax 0.25 mg twice a day - will discuss these changes with the son 3. No salt diet 4. Activity as tolerated 5. Encouraged to keep legs elevated when sitting 6. [facility] consultation before discharge today Plan and coordination of the patient's care discussed in the presence of Marine Radio Installer And Servicer and nurse. CONDITION: Stable SCRIBED BY: SHERYL HENSON, College Associate scribed while in presence of service performed by Dr. CAT SHARIF on 11/11/16 ([id number])
--- NOTE | 2016-12-25 07:21 | SSS ---
DATE OF SERVICE: 11/10/16 ADMIT/11/11/16 DISCHARGE REASON FOR CONSULTATION/ADMISSION: CHF, acute respiratory failure HISTORY OF PRESENT ILLNESS: This is a 81-year-old female with complaint of sudden onset of confusion, which started on the . She became worse; however, resolved when she presented to the ER. REVIEW OF SYSTEMS: CONSTITUTIONAL: Malaise, weakness. No night sweats. No fever or chills. HEENT: Eyes: No visual changes. No eye pain. No eye discharge. ENT: No runny nose. No epistaxis. No sinus pain. No sore throat. No odynophagia. No ear pain. No congestion. RESPIRATORY: Dyspnea. Breath sounds diminished, crackles. No cough, no congestion. No hemoptysis. CARDIOVASCULAR: No angina symptoms. No CHF symptoms. No atypical chest pain for CAD. No palpitations. No shortness of breath. GASTROINTESTINAL: No abdominal pain. No nausea or vomiting. No diarrhea or constipation. No hematemesis. No hematochezia. GENITOURINARY: No urgency. No frequency. No dysuria. No hematuria. No obstructive symptoms. No discharge. No pain. No significant abnormal bleeding. MUSCULOSKELETAL: Mild weakness to bilateral lower extremities. NEUROLOGICAL: Awake, alert, oriented to time, place and person. No headache. No neck pain. No syncope. No seizures. No dizziness. PSYCHIATRIC: Not anxious. No depression. No suicidal thoughts. No homicidal thoughts. SKIN: No rash. No lesions. No wounds. ENDOCRINE: No unexplained weight loss. No weight gain. HEMATOLOGIC/LYMPHATIC: No anemia. No purpura. No petechiae. No prolonged or excessive bleeding. No palpable lymph nodes. PAST MEDICAL/SURGICAL HISTORY: 1. Aortic stenosis 2. Depression 3. Hypertension 4. Atrial fibrillation 5. Pacemaker 6. Hyperthyroid 7. COPD 8. Hysterectomy 9. Cervical fracture with surgery PERSONAL/FAMILY HISTORY/SOCIAL HISTORY: The patient lives alone. The son is social support. The patient has [employer], [employer] services, meals per [place]. PHYSICAL EXAMINATION: GENERAL: Height 5'2", weight 136, BMI 24.9. VITAL SIGNS: Temperature 99.2, pulse 61, respiratory rate 18, BP 115/58, pulse oximetry 90% on room air. HEENT: Head normocephalic, atraumatic. Pallor positive. NECK: Supple. No JVD, no carotid bruit. No lymphadenopathy or thyromegaly. LUNGS: Bilaterally equal and clear to auscultation. Percussion note normal. Chest symmetrical. HEART: S1, S2 normal. Systolic murmur. No cyanosis or clubbing. No ascites. Pulses: Dorsalis pedis and posterior tibial pulses +1 to +2 both sides. ABDOMEN: Soft. Nontender. Bowel sounds active. No CVA tenderness. No mass felt. EXTREMITIES: Positive for edema. Full range of motion of all extremities, equal. NEUROLOGIC: No focal deficit. Cranial nerves II through XII are grossly intact. No headache, no double vision or headache. SKIN: Not dry. Intact. Turgor - normal. LYMPHATIC: No palpable lymph nodes/no lymphedema. MUSCULOSKELETAL: Normal joints with no swelling. Muscle tone is normal. Old/present records reviewed Office records reviewed. ALLERGIES: CIPROFLOXACIN, CIPROFLOXACIN HCI, PROPOXYPHENE MEDICATIONS: 1. Diovan 2. Xanax 3. Inderal 4. Propylthiouracil 5. Antivert 6. Coumadin 7. Prilosec 8. Zofran 9. [place] 10. Lasix 11. Lanoxin LABS/EKG'S/X-RAY/ECHO/ABG: Platelets 109, PT/INR 16.1/1.56, D. dimer 1.04. ABG on room air 02 sat 90.0, pH 7.457, p02 56.0, HC03 26.9. Base excess 3. Total bilirubin 1.88. AST 38. PROGRESS NOTES: See EMR. DIAGNOSES: 1. STATUS POST CHANGE IN MENTAL STATUS SECONDARY TO MEDICATIONS 2. ACUTE ON CHRONIC HEART FAILURE 3. AORTIC STENOSIS, SEVERE 4. HYPERTENSION 5. DYSLIPIDEMIA 6. ATRIAL FIBRILLATION RECOMMENDATIONS/PLAN: 1. Discharge home 2. No salt diet 3. Keep legs elevated 4. Celexa 20 mg daily 5. Decrease [place] from 5 times a day to 3 times a day 6. Decrease Xanax to 0.25 mg to 0.5 mg b.i.d. p.r.n. 7. Followup 11/17/16 at 1045 a.m. TIME SPENT: More than 70 minutes. MTDD
== END 2016-11-11 15:25 | disposition home or self-care (01) ==
LOC: ED 22:01 → MEDSURG B 11-10 00:15
PROVIDERS: ADMIT Emergency Medicine; ATTEND Emergency Medicine
DX: R41.82 Altered mental status, unspecified (principal); T50.905A Adverse effect of unspecified drugs, medicaments and biological substances, initial encounter; I50.9 Heart failure, unspecified; I48.91 Unspecified atrial fibrillation; I42.8 Other cardiomyopathies; J96.01 Acute respiratory failure with hypoxia; R06.00 Dyspnea, unspecified; I35.0 Nonrheumatic aortic (valve) stenosis; E78.5 Hyperlipidemia, unspecified; F32.9 Major depressive disorder, single episode, unspecified; Z79.01 Long term (current) use of anticoagulants; Z79.899 Other long term (current) drug therapy; Z95.0 Presence of cardiac pacemaker
CPT/HCPCS: 36415; 80053; 80162; 81001; 82550; 82803; 83880; 84484; 85025; 85379; 85610; 93005; 93010; 94640; 96374; 96375; 96376; 99284; 99285

== ENCOUNTER 2017-01-23 16:59 | Outpatient (CLI) | END 2017-01-23 17:00 | disposition home or self-care (01) | LOC: AMBL 16:59 | PROVIDERS: ATTEND Internal Medicine | DX: F41.9 Anxiety disorder, unspecified (principal); J44.9 Chronic obstructive pulmonary disease, unspecified; I50.9 Heart failure, unspecified; Z95.0 Presence of cardiac pacemaker; Z99.81 Dependence on supplemental oxygen ==

== ENCOUNTER 2017-01-27 15:17 | Inpatient (IN) ==
[2017-01-27] MEDS ORDERED: NITROSTAT SL PRN (15:42)
[2017-01-27] MEDS ORDERED: VISTARIL INJ IM PRN (15:42)
[2017-01-27] MEDS ORDERED: TYLENOL PO PRN (15:42)
[2017-01-27] MEDS ORDERED: ATROPINE SULFATE PFS IVP PRN (15:42)
[2017-01-27] MEDS ORDERED: MORPHINE 4 MG/ML SYRINGE IVP PRN (15:42)
[2017-01-27] MEDS ORDERED: LASIX IVP STA (15:46)
[2017-01-27] MEDS ORDERED: DECADRON 4 MG/ML SDV IM ONE (16:00)
[2017-01-27] MEDS ORDERED: XANAX PO PRN ×2 (16:10→16:44)
[2017-01-27] MEDS ORDERED: LOTRISONE 15 GM TP PRN (16:10)
[2017-01-27] MEDS ORDERED: ANTIVERT PO PRN (16:10)
[2017-01-27] MEDS ORDERED: ZOFRAN TAB PO PRN (16:10)
[2017-01-27] MEDS ORDERED: PRILOSEC PO PRN (16:10)
[2017-01-27 16:12] LABS: BASOPHILS % (AUTO) 0.3 % (0.0-3.0); EOSINOPHILS # (AUTO) 0.2 K/ul (0.0-0.7); EOSINOPHILS % (AUTO) 3.5 % (0.0-7.0); HEMATOCRIT 36.9 % (37.0-47.0); HEMOGLOBIN 12.7 g/dl (12.0-16.0); IMMATURE GRANULOCYTE % (AUTO) 0.2 % (0.0-5.0); LYMPHOCYTES # (AUTO) 1.3 K/uL (0.60-3.4); LYMPHOCYTES % (AUTO) 21.5 (10.0-50.0); MEAN CORPUSCULAR HEMOGLOBIN 30.5 pg (27.0-31.0); MEAN CORPUSCULAR HGB CONC 34.4 (31.8-35.4); MEAN CORPUSCULAR VOLUME 88.7 fl (81.0-99.0); MONOCYTES # (AUTO) 0.3 K/uL (0.4-2.0); MONOCYTES % (AUTO) 5.4 (0-10); NEUTROPHILS # (AUTO) 4.1 K/ul (2.0-6.9); NEUTROPHILS % (AUTO) 69.1; PLATELET COUNT 136 10^3/uL (140-440); RED BLOOD COUNT 4.16 10^6/ul (4.20-5.40); WHITE BLOOD COUNT 5.96 K/ul (4.6-10.2)
[2017-01-27 16:20] LABS: ABG BASE EXCESS 1 (-2.0-2.0); ABG HCO3 25.3 (22.0-26.0); ABG PCO2 39.3 mmHg (35-45); ABG PH 7.416 (7.35-7.45); ABG TCO2 26 (22.0-28.0)
[2017-01-27 16:40] VITALS: BMI 25.9
[2017-01-27] MEDS ORDERED: NORCO 5-325 PO PRN (16:44)
[2017-01-27 16:48] LABS: BILIRUBIN,URINE Negative (NEGATIVE); KETONES,URINE Negative (NEGATIVE); LEUKOCYTE ESTERASE ,URINE Negative (NEGATIVE); NITRITE,URINE Negative (NEGATIVE); PROTEIN,URINE Negative (NEGATIVE); URINE, BLOOD Trace-intact (NEGATIVE)
[2017-01-27 16:50] LABS: ADD URINE MICROSCOPIC YES
--- NOTE | 2017-01-27 16:54 | DI ---
EXAM: Single frontal view of the chest HISTORY: Shortness of breath. COMPARISON: Chest x-ray 11/09/2016 FINDINGS: Cardiomediastinal silhouette is stable enlarged with atherosclerotic disease of the aorta. There is a left chest wall generator with dual lead wires unchanged from prior. There is no pneum othorax. There is blunting the costophrenic angles with mild pulmonary vascular indistinctness. Th e osseous structures are stable in comparison to prior. IMPRESSION: Cardiomediastinal silhouette is enlarged with prominent pulmonary vessels and mild vascular indistin ctness suggestive of pulmonary edema/congestion with questionable trace pleural effusions.
[2017-01-27 16:55] LABS: ALBUMIN 3.7 g/dL (3.4-5.0); ALBUMIN/GLOBULIN RATIO 1.19; ANION GAP 14.9; BILIRUBIN,TOTAL 1.24 mg/dL (0.00-1.20); BUN/CREATININE RATIO 17.43; CALCIUM 9.4 mg/dL (8.2-10.2); CREATININE 1.09 mg/dL (0.60-1.30); POTASSIUM 4.9 mmol/L (3.5-5.10); TOTAL PROTEIN 6.8 g/dL (5.8-8.1); TROPONIN I 0.121 ng/ml (0.0000-0.4000)
[2017-01-27] MEDS ORDERED: COUMADIN PO SCH (17:00)
[2017-01-27 17:13] LABS: DIGOXIN 2.18 ng/mL (1.00-2.00)
[2017-01-27] MEDS: COUMADIN PO SCH (17:48)
[2017-01-27] MEDS: INDERAL PO SCH (20:04)
[2017-01-27] MEDS: NORCO 5-325 PO PRN (21:42)
[2017-01-27 23:20] LABS: TROPONIN I 0.129 ng/ml (0.0000-0.4000)
[2017-01-28 04:44] LABS: BASOPHILS % (AUTO) 0.3 % (0.0-3.0); EOSINOPHILS % (AUTO) 0.3 % (0.0-7.0); HEMATOCRIT 35.6 % (37.0-47.0); HEMOGLOBIN 12.2 g/dl (12.0-16.0); IMMATURE GRANULOCYTE % (AUTO) 0.3 % (0.0-5.0); LYMPHOCYTES # (AUTO) 0.7 K/uL (0.60-3.4); LYMPHOCYTES % (AUTO) 19.3 (10.0-50.0); MEAN CORPUSCULAR HEMOGLOBIN 30.2 pg (27.0-31.0); MEAN CORPUSCULAR HGB CONC 34.3 (31.8-35.4); MEAN CORPUSCULAR VOLUME 88.1 fl (81.0-99.0); MONOCYTES # (AUTO) 0.1 K/uL (0.4-2.0); MONOCYTES % (AUTO) 1.8 (0-10); NEUTROPHILS # (AUTO) 2.6 K/ul (2.0-6.9); PLATELET COUNT 104 10^3/uL (140-440); RED BLOOD COUNT 4.04 10^6/ul (4.20-5.40); WHITE BLOOD COUNT 3.37 K/ul (4.6-10.2)
[2017-01-28 04:53] LABS: ALBUMIN 3.3 g/dL (3.4-5.0); ALBUMIN/GLOBULIN RATIO 1.03; ANION GAP 16.8; BILIRUBIN,TOTAL 1.6 mg/dL (0.00-1.20); BUN/CREATININE RATIO 19.41; CALCIUM 9.5 mg/dL (8.2-10.2); CREATININE 1.03 mg/dL (0.60-1.30); POTASSIUM 4.8 mmol/L (3.5-5.10); TOTAL PROTEIN 6.5 g/dL (5.8-8.1)
[2017-01-28] MEDS: LASIX IVP SCH (05:55)
[2017-01-28] MEDS ORDERED: LANOXIN PO SCH (09:00)
[2017-01-28] MEDS: ASPIRIN EC PO SCH (09:32)
[2017-01-28] MEDS: PROPYLTHIOURACIL PO SCH (09:33)
[2017-01-28] MEDS: INDERAL PO SCH ×2 (09:33→21:00)
[2017-01-28] MEDS: DIOVAN PO SCH (09:33)
[2017-01-28] MEDS: NORCO 5-325 PO PRN ×2 (11:13→21:00)
--- NOTE | 2017-01-28 14:04 | HP ---
DATE OF SERVICE: 01/27/17 REASON FOR HOSPITALIZATION: Feels weak, shortness of breath HISTORY OF PRESENT ILLNESS: This is a 81-year-old female who is sick today, feels weak, out of breath/SOB, legs swelling, and burping. REVIEW OF SYSTEMS: CONSTITUTIONAL: Fatigue. No fever. HEENT: No sinus drainage, no sore throat. RESPIRATORY: No cough, no congestion. No hemoptysis. CARDIOVASCULAR: Mild shortness of breath. No atypical chest pain for coronary artery disease. No angina, CHF symptoms or palpitations. GASTROINTESTINAL: No melena or abdominal pain. No GERD. GENITOURINARY: No hematuria, no polyuria. MIXED LIVESTOCK FARM WORKER: No blackout, no dizziness, no headache, no double vision. Gait- uses a cane. MUSCULOSKELETAL: Osteoarthritis pain. No joint swelling. ENDOCRINE: Weight gain 6 lbs. SKIN: Not dry, no rash. PSYCHIATRIC: Anxious. No depression, no suicidal thoughts, no homicidal thoughts. PAST MEDICAL HISTORY: 1. Obesity 2. COPD 3. Hypertension 4. Atrial fibrillation 5. Hypothyroidism 6. Aortic stenosis 7. Pacemaker 8. Gallbladder dysfunction 9. Neck surgery PAST SURGICAL HISTORY: 1. Pacemaker 2. Fracture C-spine 3. Neck surgery 4. Hysterectomy 5. Cataract extraction SOCIAL HISTORY: Nonsmoker. . No alcohol use. MEDICATIONS: (HOME) 1. Valsartan 80 mg p.o. daily 2. Propranolol (Inderal) 40 mg p.o. b.i.d. 3. Propylthiouracil 50 mg p.o. daily 4. Meclizine (Antivert) 25 mg p.o. t.i.d. p.r.n. 5. Warfarin (Coumadin) 3 mg p.o. daily 6. Omeprazole (Prilosec) 20 mg p.o. q.d a.c. p.r.n. 7. Ondansetron (Zofran) 4 mg p.o. q.12h p.r.n. 8. Furosemide (Lasix) 40 mg p.o. q.d a.c. 9. Digoxin 125 mcg p.o. daily 10. Clotrimazole/Betamethasone one application TP b.i.d. p.r.n. 11. Alprazolam (Xanax) 0.25-0.5 mg p.o. b.i.d. p.r.n. 12. Hydrocodone/Acetaminophen one tab p.o. q.i.d. p.r.n. ALLERGIES: CIPRO, CIPROFLOXACIN HCI, PROPOXYPHENE HCI PHYSICAL EXAMINATION: V/S: Pulse 72, BP 118/64, 02 sat 97%, height 5'1", weight 140.2, BMI 26.5. GENERAL APPEARANCE: Oriented times three. HEENT: Normal. NECK: No JVP, no bruits. RESPIRATORY: Lungs are clear. Few crepitations at the bases. CARDIOVASCULAR: S1, S2, no S3, Grade III/ murmur. No cyanosis, clubbing. No ascites. GI/ABDOMEN: No tenderness. Bowel sounds are active. EXTREMITIES: +2 pitting edema, pulses +1, equal. MIXED LIVESTOCK FARM WORKER: Deep tendon reflexes, sensory, motor and gait all normal. RECTAL/PELVIC: Colonoscopy - Dr. Up 2004. Pelvic - refused. ASSESSMENT: 1. CHF 2. FLUID RETENTION 3. SEVERE 4. MODERATE MITRAL STENOSIS 5. SEVERE OSTEOARTHRITIS KNEES AND BACK 6. AORTIC STENOSIS/MITRAL STENOSIS 7. COPD 8. CHF/ATRIAL FIBRILLATION 9. HYPERTENSION 10. C-SPINE 11. DJD 12. HYPOTHYROIDISM 9. PACEMAKER 12/17/16 10. MITRAL STENOSIS PLAN: 1. Admit 2. Telemetry orders 3. Lasix 40 mg IV today and daily a.m. 4. Elevate legs 5. ABG 6. 1/2 cc Decadron 7. Continue all home medications 8. D/C p.o. Lasix 9. BNP, TSH 10. Daily CBC, CMP 11. Lanoxin level a.m. 12. Oxygen 2L/cannula 13. The patient is DNR TIME SPENT: More than 70 minutes. MTDD
[2017-01-28] MEDS: COUMADIN PO SCH (17:38)
[2017-01-29] MEDS: NORCO 5-325 PO PRN (00:20)
[2017-01-29 05:32] VITALS: BP 118/64; TEMP 97.1
[2017-01-29] MEDS: LASIX IVP SCH (05:37)
[2017-01-29 05:39] LABS: BASOPHILS % (AUTO) 0.3 % (0.0-3.0); EOSINOPHILS # (AUTO) 0.1 K/ul (0.0-0.7); EOSINOPHILS % (AUTO) 1.8 % (0.0-7.0); HEMATOCRIT 35.5 % (37.0-47.0); HEMOGLOBIN 12.1 g/dl (12.0-16.0); IMMATURE GRANULOCYTE % (AUTO) 0.4 % (0.0-5.0); LYMPHOCYTES # (AUTO) 1.6 K/uL (0.60-3.4); LYMPHOCYTES % (AUTO) 22.9 (10.0-50.0); MEAN CORPUSCULAR HEMOGLOBIN 30.2 pg (27.0-31.0); MEAN CORPUSCULAR HGB CONC 34.1 (31.8-35.4); MEAN CORPUSCULAR VOLUME 88.5 fl (81.0-99.0); MONOCYTES # (AUTO) 0.4 K/uL (0.4-2.0); MONOCYTES % (AUTO) 5.1 (0-10); NEUTROPHILS # (AUTO) 4.9 K/ul (2.0-6.9); NEUTROPHILS % (AUTO) 69.5; PLATELET COUNT 118 10^3/uL (140-440); RED BLOOD COUNT 4.01 10^6/ul (4.20-5.40); WHITE BLOOD COUNT 7.03 K/ul (4.6-10.2)
[2017-01-29 05:52] LABS: PROTHROMBIN TIME 33.7 SEC (9.3-11.0)
[2017-01-29 06:02] LABS: ALBUMIN 3.4 g/dL (3.4-5.0); ALBUMIN/GLOBULIN RATIO 1.1; ANION GAP 13.7; BILIRUBIN,TOTAL 1.08 mg/dL (0.00-1.20); BUN/CREATININE RATIO 22.41; CALCIUM 9.5 mg/dL (8.2-10.2); CREATININE 1.16 mg/dL (0.60-1.30); POTASSIUM 4.7 mmol/L (3.5-5.10); TOTAL PROTEIN 6.5 g/dL (5.8-8.1)
[2017-01-29] MEDS: PROPYLTHIOURACIL PO SCH (08:06)
[2017-01-29] MEDS: ASPIRIN EC PO SCH (08:06)
[2017-01-29] MEDS: INDERAL PO SCH (08:06)
[2017-01-29] MEDS: DIOVAN PO SCH (08:06)
--- NOTE | 2017-01-29 09:03 | CM.DICTOOL ---
ADMISSION: 01/27/17 15:17 DISCHARGE: January 29, 2017 DATE OF SERVICE: 01/29/17 FINAL DIAGNOSIS CHF Fluid retention Severe aortic stenosis Moderate Mitral Stenosis Severe Osteoarthritis knees, back and neck COPD Atrial Fibrillation Hypertension Fracture C-spine Hypothyroid Pacemaker GERD Hysterectomy Cataract Extraction LAST VITALS Temp Pulse Resp BP Pulse Ox 97.1 F L 74 15 118/64 98 01/29/17 05:32 01/29/17 05:32 01/29/17 05:32 01/29/17 05:32 01/29/17 05:32 ACTIVE HOME MEDICATIONS Acetaminophen (Tylenol) 650 mg PO Q4H PRN PRN Reason: Headache Acetaminophen/Hydrocodone Bitart ([place] 5-325) 1 tab PO QID PRN PRN Reason: PAIN Last Admin: 01/29/17 00:20 Dose: 1 tab Alprazolam (Xanax) 0.25 - 0.5 mg PO BID PRN PRN Reason: Anxiety Last Admin: 01/29/17 05:39 Dose: 0.5 mg Aspirin (Aspirin Ec) 81 mg PO DAILYWM [facility] Last Admin: 01/29/17 08:05 Dose: 81 mg Clotrimazole (Lotrisone 15 Gm) 1 applic TP BID PRN PRN Reason: rash Digoxin (Lanoxin) 125 mcg PO DAILY [facility] Last Admin: Meclizine HCl (Antivert) 25 mg PO TID PRN PRN Reason: Dizziness Omeprazole (Prilosec) 20 mg PO QDAC PRN PRN Reason: Heartburn Ondansetron HCl (Zofran Tab) 4 mg PO Q12HR PRN PRN Reason: Nausea / Vomiting Propranolol HCl (Inderal) 40 mg PO BID [facility] Last Admin: 01/29/17 08:05 Dose: 40 mg Propylthiouracil (Propylthiouracil) 50 mg PO DAILY [facility] Last Admin: 01/28/17 09:33 Dose: 50 mg Valsartan (Diovan) 80 mg PO DAILY [facility] Last Admin: 01/28/17 08:05 Dose: 80 mg Warfarin Sodium (Coumadin) 3 mg PO QPM [facility] Last Admin: 01/28/17 17:38 Dose: 3 mg ALLERGIES ciprofloxacin [From Cipro] Adverse Reaction (Verified 11/09/16 22:13) ciprofloxacin HCl [From Cipro] Adverse Reaction (Verified 11/09/16 22:13) propoxyphene HCl [From Darvon] Adverse Reaction (Verified 11/09/16 22:13) NEW PRESCRIPTIONS: No Prescriptions SMOKING: Not Applicable DISEASE SPECIFIC EDUCATION: Fluid Retention CHF Medication Changes Office Follow-up LAB REVIEW: 01/29/17 05:30 01/29/17 05:30 01/29/17 05:30: WBC 7.03, RBC 4.01 L, Hgb 12.1, Hct 35.5 L, MCV 88.5, MCH 30.2, MCHC 34.1, RDW Coeff of Megan 13.6, Plt Count 118 L, Immature Gran % (Auto) 0.4, Neut % (Auto) 69.5, Lymph % (Auto) 22.9, [place] % (Auto) 5.1, Eos % (Auto) 1.8, Baso % (Auto) 0.3, Immature Gran # (Auto) 0.0, Neut # 4.9, Lymph # 1.6, [place] # 0.4, Eos # 0.1, Baso # 0.0, PT 33.7 H, INR 3.27, Sodium 128 L, Potassium 4.7, Chloride 92 L, Carbon Dioxide 27, Anion Gap 13.7, BUN 26 H, Creatinine 1.16, Estimated GFR (MDRD) 45.00, BUN/Creatinine Ratio 22.41, Glucose 93, Calcium 9.5 , Total Bilirubin 1.08, AST 25, ALT 7 L, Alkaline Phosphatase 44 L, B- Natriuretic Peptide 1606 H, Total Protein 6.5, Albumin 3.4, Globulin 3.1, Albumin/Globulin Ratio 1.10 PLAN: Discharge Home Diet: Heart Healthy Activity: Resume As Tolerated Elevate Legs when sitting and when in bed. Elevate the legs as much as possible during the day. Weigh yourself daily. If you gain more than 2 pounds in one day, take an extra Lasix. Medication Changes: Change Digoxin to 6 days per week. Omit Fridays. Skip Coumadin dose tonamadou (01-29-2017) An appointment is scheduled on February 05 at 2:[address] Villagran Ms. Farrell is alert and oriented x 3. The patient displays a fair appetite with intakes of 25-50%. She denies abdominal pain or nausea with meals. Ms. Farrell is independent with ADL'S and requires use of a cane with ambulation. She transfers to the bedside chair with minimal assistance of the nursing staff. She has lost a total of 2.5 pounds since her admission to the hospital. The skin is free of decubitus ulcers, rashes or irritation. Ms. Farrell has homemaking assistance 10 hours per week from [employer]. An evaluation for additional hours has been requested. The patient has a cane, standard walker, life alert button, and oxygen at night in her home. She has requested a prescription for a rolling walker with a seat for use in her home due to osteoarthritis in her back and knees. Raj Villagran MD
--- NOTE | 2017-01-29 11:06 | PCM.PROG ---
Attending Provider: ATTENDING PROVIDER: Dr. KEVIN DRAKE DATE OF SERVICE: 01/29/17 SUBJECTIVE: This 81 year old WHITE/ F was hospitalized 01/27/17 with CHF and fluid retention. The patient's condition clinically has improved remarkably. No swelling of the face and pitting edema is less than 1+. She is sleeping quietly, lying flat with no orthopnea, no PND. Appetite has improved. BNP has gone up slightly. The patient has severe aortic stenosis, inoperable and mild to moderate mitral stenosis. The pacemaker is capturing and sensing well. The patient was educated about CHF. REVIEW OF SYSTEMS: CONSTITUTIONAL: No night sweats. No fatigue, malaise, lethargy. No fever or chills. HEENT: Eyes: No visual changes. No eye pain. No eye discharge. ENT: No runny nose. No epistaxis. No sinus pain. No odynophagia. No congestion. RESPIRATORY: No cough, no congestion. No hemoptysis. CARDIOVASCULAR: No angina symptoms. No CHF symptoms. No atypical chest pain for CAD. No palpitations. No shortness of breath. No PND, no orthopnea. GASTROINTESTINAL: Good appetite. No abdominal pain. No nausea or vomiting. No diarrhea or constipation. No hematemesis. No hematochezia. GENITOURINARY: No urgency. No frequency. No dysuria. No hematuria. No obstructive symptoms. No discharge. No pain. No significant abnormal bleeding. MUSCULOSKELETAL: Generalized osteoarthritis. NEUROLOGICAL: Awake, alert, oriented to time, place and person. No headache. No neck pain. No syncope. No seizures. No dizziness. PSYCHIATRIC: Not anxious. No depression. No suicidal thoughts. No homicidal thoughts. SKIN: No rash. No lesions. No wounds. ENDOCRINE: No unexplained weight loss. No weight gain. HEMATOLOGIC/LYMPHATIC: No anemia. No purpura. No petechiae. No prolonged or excessive bleeding. No palpable lymph nodes. PHYSICAL EXAMINATION: GENERAL: The patient is resting quietly in no distress. VITAL SIGNS: Temperature 97.1 F, Pulse 74, Respiratory Rate 15, BP 118/64, Pulse Ox 98% HEENT: Head normocephalic, atraumatic. Eyes: Extraocular muscles are intact. Pupils are equal, round and reactive to light and accommodation. Ears: No lesions. Nose appeared normal. Throat: No exudate or erythema. NECK: Supple. No JVD, no carotid bruit. No lymphadenopathy or thyromegaly. LUNGS: Decreased breath sounds. Clear to auscultation. Percussion note normal. Chest symmetrical. HEART: S1, S2, no S3. Grade III/ systolic murmur. No cyanosis or clubbing. No ascites. Pulses: Dorsalis pedis and posterior tibial pulses +1 to +2 both sides. ABDOMEN: Soft. Non-tender. Bowel sounds active. No CVA tenderness. No mass felt. EXTREMITIES: Less than 1+ edema. Full range of motion of all extremities, equal. NEUROLOGIC: No focal deficit. Cranial nerves II through XII are grossly intact. No headache, no double vision or headache. SKIN: Not dry. Intact. Turgor-normal. LYMPHATIC: No palpable lymph nodes/no lymphedema. MUSCULOSKELETAL: Normal joints with no swelling. Muscle tone is normal. LAB REVIEW: 01/29/17 05:30 01/29/17 05:30 01/29/17 05:30: WBC 7.03, RBC 4.01 L, Hgb 12.1, Hct 35.5 L, MCV 88.5, MCH 30.2, MCHC 34.1, RDW Coeff of [place] 13.6, Plt Count 118 L, Immature Gran % (Auto) 0.4, Neut % (Auto) 69.5, Lymph % (Auto) 22.9, [place] % (Auto) 5.1, Eos % (Auto) 1.8, Baso % (Auto) 0.3, Immature Gran # (Auto) 0.0, Neut # 4.9, Lymph # 1.6, [place] # 0.4, Eos # 0.1, Baso # 0.0, PT 33.7 H, INR 3.27, Sodium 128 L, Potassium 4.7, Chloride 92 L, Carbon Dioxide 27, Anion Gap 13.7, BUN 26 H, Creatinine 1.16, Estimated GFR (MDRD) 45.00, BUN/Creatinine Ratio 22.41, Glucose 93, Calcium 9.5 , Total Bilirubin 1.08, AST 25, ALT 7 L, Alkaline Phosphatase 44 L, B- Natriuretic Peptide 1606 H, Total Protein 6.5, Albumin 3.4, Globulin 3.1, Albumin/Globulin Ratio 1.10 ASSESSMENT: 1. CHF resolved. 2. Severe aortic stenosis. 3. Moderate mitral stenosis. 4. Pacemaker capturing and sensing well 5. Generalized osteoarthritis. PLAN: 1. The patient is instructed to take Xanax 1/2 tablet 0.25 mg as needed. 2. Instructed to take [place] only 2 to 3 times a day [id number] and not to mix with other [id number] medications. 3. Discharge. Plan and coordination of the patient's care discussed in the presence of Open End Spinning Operator and nurse. EDUCATION: Educated about CHF; medications were discussed in detail. CONDITION: Stable. PROGNOSIS: Poor. The patient knows this and doesn't want any intervention; wants DNR. SCRIBED BY: SHERYL HENSON, Editor Producer scribed while in presence of service performed by Dr. KEVIN DRAKE on 01/29/17 ([id number])
--- NOTE | 2017-01-29 11:27 | DS ---
DATE OF SERVICE: 01/29/17 FINAL DIAGNOSIS: 1. CHF 2. FLUID RETENTION 3. SEVERE AORTIC STENOSIS 4. MODERATE MITRAL STENOSIS 5. SEVERE OSTEOARTHRITIS KNEES, BACK AND NECK 6. COPD 7. ATRIAL FIBRILLATION 8. HYPERTENSION 9. FRACTURE C-SPINE 10. HYPOTHYROID 11. PACEMAKER 12. GERD 13. HYSTERECTOMY 14. CATARACT EXTRACTION LAST VITAL SIGNS: Temperature 97.1, pulse 74, respiratory rate 15, BP 118/64, pulse ox 98. DISCHARGE INSTRUCTIONS: 1. Followup appointment is scheduled on February 05, 2017 at 2:[address] Drake. 2. Weigh yourself daily; if you gain more than 2 pounds in a day, take an extra Lasix. MEDICATIONS AT DISCHARGE: 1. Valsartan/Diovan 80 mg p.o. daily 2. Propranolol (Inderal) 40 mg p.o. b.i.d. 3. Propylthiouracil 50 mg p.o. daily 4. Meclizine (Antivert) 25 mg p.o. t.i.d. p.r.n. 5. Warfarin (Coumadin) 3 mg p.o. daily - see below 6. Omeprazole (Prilosec)20 mg p.o. q.d. a.c. p.r.n. 7. Ondansetron (Zofran) 4 mg p.o. q.12h p.r.n. 8. Furosemide (Lasix) 40 mg p.o. q.d a.c. 9. Digoxin (Lanoxin) 125 mcg p.o. daily - see below 10. Clotrimazole/Betamethasone (Lotrisone 15 gm) one application TP b.i.d. p.r.n. 11. Alprazolam (Xanax) 0.25-0.5 mg p.o. b.i.d. p.r.n. 12. Hydrocodone/Acetaminophen one tab p.o. q.i.d. p.r.n. NEW PRESCRIPTIONS: None MEDICATION CHANGES: 1. Change Digoxin to 6 days per week. Omit Fridays. 2. Skip Coumadin dose tonight (01-29-2017). DIET INSTRUCTIONS: Heart Healthy ACTIVITY: Resume as tolerated. Elevate legs when sitting and when in bed. Elevate the legs as much as possible during the day. SMOKING: Not applicable DISEASE SPECIFIC EDUCATION: Fluid retention CHF Medication changes Office followup HOSPITAL COURSE: This 81 year old WHITE/ F was hospitalized 01/27/17 with CHF and fluid retention. The patient was treated with IV Lasix and leg elevation. She was given 1 cc Decadron for allergic bronchitis and felt a lot better within 24 hours. Swelling of the face went away. The leg edema is trace to +1 pitting. No CHF symptoms. She was instructed how to take an extra pill of Lasix in case of fluid retention or symptoms of CHF. The patient's condition is stable and prognosis is poor. She was seen by Dr. Hall, a valve specialist, and she has been deemed as not a surgical candidate for her severe aortic stenosis and mild to moderate mitral stenosis. The patient is DNR. LAB DATA: 01/29/17 05:30: WBC 7.03, RBC 4.01 L, Hgb 12.1, Hct 35.5 L, MCV 88.5, MCH 30.2, MCHC 34.1, RDW Coeff of Megan 13.6, Plt Count 118 L, Immature Gran % (Auto) 0.4, Neut % (Auto) 69.5, Lymph % (Auto) 22.9, [place] % (Auto) 5.1, Eos % (Auto) 1.8, Baso % (Auto) 0.3, Immature Gran # (Auto) 0.0, Neut # 4.9, Lymph # 1.6, [place] # 0.4, Eos # 0.1, Baso # 0.0, PT 33.7 H, INR 3.27, Sodium 128 L, Potassium 4.7, Chloride 92 L, Carbon Dioxide 27, Anion Gap 13.7, BUN 26 H, Creatinine 1.16, Estimated GFR (MDRD) 45.00, BUN/Creatinine Ratio 22.41, Glucose 93, Calcium 9.5 , Total Bilirubin 1.08, AST 25, ALT 7 L, Alkaline Phosphatase 44 L, B- Natriuretic Peptide 1606 H, Total Protein 6.5, Albumin 3.4, Globulin 3.1, Albumin/Globulin Ratio 1.10 CONDITION: Stable TIME SPENT: More than 60 minutes. SCRIBED BY: SHERYL HENSON, Food Concession Manager scribed while in presence of service performed by Dr. KEVIN DRAKE on 01/29/17 ([id number]) [facility]
--- NOTE | 2017-02-03 14:35 | PN ---
DATE OF SERVICE: 01/28/17 SUBJECTIVE: 81-year-old white female hospitalized with congestive heart failure. The patient had generalized edema; also edema of the thighs, pitting +2 of lower legs along with eyelids swollen with swelling of the face. The patient also had mild bronchitis, looks allergic, seems to be allergic. Feeling a lot better. The patient is looking better. REVIEW OF SYSTEMS: CONSTITUTIONAL: No night sweats. No fatigue, malaise, lethargy. No fever or chills. HEENT: Eyes: No visual changes. No eye pain. No eye discharge. ENT: No runny nose. No epistaxis. No sinus pain. No sore throat. No odynophagia. No congestion. RESPIRATORY: Cough has subsided. No congestion. No hemoptysis. CARDIOVASCULAR: No angina symptoms. No CHF symptoms. No atypical chest pain for CAD. No palpitations. No shortness of breath. No PND, no orthopnea. GASTROINTESTINAL: Appetite improved. No abdominal pain. No nausea or vomiting. No diarrhea or constipation. No hematemesis. No hematochezia. GENITOURINARY: No urgency. No frequency. No dysuria. No hematuria. No obstructive symptoms. No discharge. No pain. No significant abnormal bleeding. MUSCULOSKELETAL: No musculoskeletal pain; no joint swelling. NEUROLOGICAL: No headache. No neck pain. No syncope. No seizures. No dizziness. PSYCHIATRIC: Not anxious. No depression. No suicidal thoughts. No homicidal thoughts. SKIN: No rash. No lesions. No wounds. ENDOCRINE: No unexplained weight loss. No weight gain. HEMATOLOGIC/LYMPHATIC: No anemia. No purpura. No petechiae. No prolonged or excessive bleeding. No palpable lymph nodes. PHYSICAL EXAMINATION: GENERAL: The patient is oriented to time, place and person. VITAL SIGNS: Temperature 96.9, pulse 60, respiratory rate 18, BP 107/48. Pulse ox 96%. HEENT: Head normocephalic, atraumatic. Eyes: Extraocular muscles are intact. Pupils are equal, round and reactive to light and accommodation. Ears: No lesions. Nose appeared normal. Throat: No exudate or erythema. NECK: Supple. No JVD, no carotid bruit. No lymphadenopathy or thyromegaly. LUNGS: Decreased breath sounds. Clear to auscultation. Percussion note normal. Chest symmetrical. HEART: S1, S2, no S3. No murmurs. No cyanosis or clubbing. No ascites. Pulses: Dorsalis pedis and posterior tibial pulses +1 to +2 both sides. ABDOMEN: Soft. Nontender. Bowel sounds active. No CVA tenderness. No mass felt. EXTREMITIES: No edema. Full range of motion of all extremities, equal. NEUROLOGIC: No focal deficit. Cranial nerves II through XII are grossly intact. No headache, no double vision or headache. SKIN: Not dry. Intact. Turgor - normal. LYMPHATIC: No palpable lymph nodes/no lymphedema. MUSCULOSKELETAL: Normal joints with no swelling. Muscle tone is normal. LABS: Hemoglobin 12.2, hematocrit 35, WBC 3,300, normal differential. Creatinine 1, BUN 20, potassium 4.8, glucose 124. ASSESSMENT: 1. CHF RESOLVED. 2. LEG EDEMA RESOLVING NOW IS ONLY +1 PITTING EDEMA 3. SEVERE AORTIC STENOSIS 4. MILD MITRAL STENOSIS The patient was seen by Dr. Hall, who is a valvular specialist in [place]. The patient after a lot of requests, she agreed to be checked out. According to Dr. Hall, multiple valve problems with the aging process and history of CHF. He said she is not a candidate for surgery. PLAN: 1. Continue IV Lasix, will use Zaroxolyn as needed. 2. The patient's BNP is 1361 on yesterday. Will do another BNP tomorrow. 3. Will repeat chest x-ray in the morning. 4. Will discharge the patient home tomorrow. EDUCATION CARRIED OUT ABOUT: CHF. CONDITION: Stable. TIME SPENT: More than 30 minutes. Plan and coordination of the patient's care discussed in the presence of nurse. OLLIE
== END 2017-01-29 09:50 | disposition home or self-care (01) | DRG 293 ==
LOC: SCU 15:17
PROVIDERS: ADMIT Internal Medicine; ATTEND Internal Medicine
DX: I50.9 Heart failure, unspecified (principal); R60.0 Localized edema; J45.909 Unspecified asthma, uncomplicated; R06.02 Shortness of breath; I10 Essential (primary) hypertension; I48.91 Unspecified atrial fibrillation; J44.9 Chronic obstructive pulmonary disease, unspecified; I35.0 Nonrheumatic aortic (valve) stenosis; I05.0 Rheumatic mitral stenosis; M17.0 Bilateral primary osteoarthritis of knee; M47.9 Spondylosis, unspecified; R53.1 Weakness; E03.9 Hypothyroidism, unspecified; Z95.0 Presence of cardiac pacemaker; Z79.01 Long term (current) use of anticoagulants; Z79.899 Other long term (current) drug therapy
CPT/HCPCS: 36415; 80053; 80162; 81001; 82550; 82803; 83874; 83880; 84439; 84443; 84484; 85025; 85610; 93005; 93010

== ENCOUNTER 2017-02-25 14:40 | Inpatient (IN) ==
[2017-02-25] MEDS ORDERED: LASIX IVP STA (14:49)
[2017-02-25] MEDS ORDERED: SOLU-CORTEF 100 MG IVP STA (14:49)
[2017-02-25] MEDS ORDERED: VISTARIL INJ IM PRN (14:49)
[2017-02-25] MEDS ORDERED: NITROSTAT SL PRN (14:49)
[2017-02-25] MEDS ORDERED: MORPHINE 4 MG/ML SYRINGE IVP PRN (14:49)
[2017-02-25] MEDS ORDERED: TYLENOL PO PRN (14:49)
[2017-02-25] MEDS ORDERED: ATROPINE SULFATE PFS IVP PRN (14:49)
[2017-02-25 15:18] VITALS: BMI 22.8
[2017-02-25 15:28] LABS: BASOPHILS % (AUTO) 0.4 % (0.0-3.0); EOSINOPHILS # (AUTO) 0.2 K/ul (0.0-0.7); EOSINOPHILS % (AUTO) 2.8 % (0.0-7.0); HEMATOCRIT 39.9 % (37.0-47.0); HEMOGLOBIN 13.6 g/dl (12.0-16.0); IMMATURE GRANULOCYTE % (AUTO) 0.4 % (0.0-5.0); LYMPHOCYTES # (AUTO) 1.1 K/uL (0.60-3.4); LYMPHOCYTES % (AUTO) 20.1 (10.0-50.0); MEAN CORPUSCULAR HEMOGLOBIN 30.6 pg (27.0-31.0); MEAN CORPUSCULAR HGB CONC 34.1 (31.8-35.4); MEAN CORPUSCULAR VOLUME 89.9 fl (81.0-99.0); MONOCYTES # (AUTO) 0.2 K/uL (0.4-2.0); MONOCYTES % (AUTO) 4.1 (0-10); NEUTROPHILS # (AUTO) 4.1 K/ul (2.0-6.9); NEUTROPHILS % (AUTO) 72.2; PLATELET COUNT 136 10^3/uL (140-440); RED BLOOD COUNT 4.44 10^6/ul (4.20-5.40); WHITE BLOOD COUNT 5.63 K/ul (4.6-10.2)
[2017-02-25 15:37] LABS: ABG BASE EXCESS 3 (-2.0-2.0); ABG HCO3 26.8 (22.0-26.0); ABG PCO2 37.4 mmHg (35-45); ABG PH 7.463 (7.35-7.45); ABG TCO2 28 (22.0-28.0)
[2017-02-25] MEDS: DEXTROSE 5%-1/2NS IV SOLUTION 1,000 ML IV SCH (15:37)
[2017-02-25 16:09] LABS: ALBUMIN 3.8 g/dL (3.4-5.0); ALBUMIN/GLOBULIN RATIO 1.15; ANION GAP 16.4; BILIRUBIN,TOTAL 1.75 mg/dL (0.00-1.20); BUN/CREATININE RATIO 19.09; CALCIUM 9.9 mg/dL (8.2-10.2); CREATININE 1.1 mg/dL (0.60-1.30); DIGOXIN 1.43 ng/mL (1.00-2.00); POTASSIUM 4.4 mmol/L (3.5-5.10); TOTAL PROTEIN 7.1 g/dL (5.8-8.1); TROPONIN I 0.218 ng/ml (0.0000-0.4000)
--- NOTE | 2017-02-25 16:13 | DI ---
EXAM: Chest one view HISTORY: The bronchitis COMPARISON: 01/27/2017 TECHNIQUE: Single view of the chest was performed FINDINGS: Left-sided cardiac pacer. Heart mildly enlarged, unchanged. Mitral annular calcificatio ns. Mediastinal contour unchanged and atherosclerosisild interstitial prominence could represent in terstitial pneumonitis or mild vascular congestion. No definite consolidation. No pleural effusion are pneumothorax. No acute abnormalities of the bones. IMPRESSION: Mild interstitial prominence could represent interstitial bronchiolitis/pneumonitis or mild vascular congestion.
[2017-02-25] MEDS ORDERED: COUMADIN PO SCH (17:00)
[2017-02-25 17:02] LABS: BILIRUBIN,URINE Negative (NEGATIVE); KETONES,URINE Negative (NEGATIVE); LEUKOCYTE ESTERASE ,URINE Negative (NEGATIVE); NITRITE,URINE Negative (NEGATIVE); PROTEIN,URINE Negative (NEGATIVE); URINE, BLOOD 2+ (NEGATIVE)
[2017-02-25 17:05] LABS: ADD URINE MICROSCOPIC YES
[2017-02-25] MEDS: INDERAL PO SCH (21:01)
[2017-02-25] MEDS: SOLU-CORTEF 100 MG IVP SCH (21:01)
[2017-02-25 23:02] LABS: TROPONIN I 0.231 ng/ml (0.0000-0.4000)
[2017-02-26] MEDS: SOLU-CORTEF 100 MG IVP SCH ×3 (05:43→21:33)
[2017-02-26] MEDS: LASIX IVP SCH (05:44)
[2017-02-26] MEDS: DIOVAN PO SCH (08:43)
[2017-02-26] MEDS: INDERAL PO SCH ×2 (08:43→21:32)
[2017-02-26] MEDS: ASPIRIN EC PO SCH (08:44)
[2017-02-26] MEDS: PROPYLTHIOURACIL PO SCH (08:44)
[2017-02-26] MEDS: DEXTROSE 5%-1/2NS IV SOLUTION 1,000 ML IV SCH ×2 (08:48→23:42)
[2017-02-26] MEDS: LANOXIN PO SCH (10:00)
[2017-02-26 10:47] LABS: PROTHROMBIN TIME 59.6 SEC (9.3-11.0)
[2017-02-26] MEDS: XANAX PO PRN (11:45)
--- NOTE | 2017-02-26 12:57 | PCM.PROG ---
Attending Provider: ATTENDING PROVIDER: Dr. KEVIN DRAKE DATE OF SERVICE: 02/26/17 SUBJECTIVE: This 81 year old WHITE/ F was hospitalized 02/25/17. The patient is sleeping in bed states she feels some better, not as short of breath. Cough has improved. REVIEW OF SYSTEMS: CONSTITUTIONAL: Fatigue. No night sweats. No fever or chills. HEENT: Eyes: No visual changes. No eye pain. No eye discharge. ENT: No runny nose. No epistaxis. No sinus pain. No odynophagia. No congestion. RESPIRATORY: Cough. No hemoptysis. CARDIOVASCULAR: No angina symptoms. No CHF symptoms. No atypical chest pain for CAD. No palpitations. Shortness of breath. GASTROINTESTINAL: No abdominal pain. No nausea or vomiting. No diarrhea or constipation. No hematemesis. No hematochezia. GENITOURINARY: No urgency. No frequency. No dysuria. No hematuria. No obstructive symptoms. No discharge. No pain. No significant abnormal bleeding. MUSCULOSKELETAL: Weakness. No musculoskeletal pain; no joint swelling. NEUROLOGICAL: Awake, alert, oriented to time, place and person. No headache. No neck pain. No syncope. No seizures. No dizziness. PSYCHIATRIC: Not anxious. No depression. No suicidal thoughts. No homicidal thoughts. SKIN: No rash. No lesions. No wounds. ENDOCRINE: No unexplained weight loss. No weight gain. HEMATOLOGIC/LYMPHATIC: No anemia. No purpura. No petechiae. No prolonged or excessive bleeding. No palpable lymph nodes. PHYSICAL EXAMINATION: GENERAL: The patient is awake, alert and oriented, lying/sitting in bed in no distress. VITAL SIGNS: Temperature 97.6 F, Pulse 60, Respiratory Rate 16, BP 91/48, Pulse Ox 98% HEENT: Head normocephalic, atraumatic. Eyes: Extraocular muscles are intact. Pupils are equal, round and reactive to light and accommodation. Ears: No lesions. Nose appeared normal. Throat: No exudate or erythema. NECK: Supple. No JVD, no carotid bruit. No lymphadenopathy or thyromegaly. LUNGS: Clear with diminished breath sounds bilaterally. Percussion note normal. Chest symmetrical. HEART: S1, S2. Grade III/ No cyanosis or clubbing. No ascites. Pulses: Dorsalis pedis and posterior tibial pulses +1 to +2 both sides. ABDOMEN: Soft. Non-tender. Bowel sounds active. No CVA tenderness. No mass felt. EXTREMITIES: 1+ edema right lower extremity; trace edema left lower extremity much improved. Full range of motion of all extremities, equal. NEUROLOGIC: No focal deficit. Cranial nerves II through XII are grossly intact. No headache, no double vision or headache. SKIN: Not dry. Intact. Turgor-normal. LYMPHATIC: No palpable lymph nodes/no lymphedema. MUSCULOSKELETAL: Normal joints with no swelling. Muscle tone is normal. LAB REVIEW: 02/25/17 15:20 02/25/17 15:20 02/25/17 22:35: Total Creatine Kinase 40, Myoglobin 56, Troponin I 0.2310 02/25/17 16:40: Urine Color Yellow, Urine Clarity Clear, Urine pH 7.0, Ur Specific Starbuck 1.015, Urine Protein Negative, Urine Glucose (UA) Negative, Urine Ketones Negative, Urine Blood 2+, Urine Nitrite Negative, Urine Bilirubin Negative, Urine Urobilinogen 0.2, Ur Leukocyte Esterase Negative, Urine Microscopic RBC 5-10, Ur Squamous Epith Cells Not present 02/25/17 15:20: WBC 5.63, RBC 4.44, Hgb 13.6, Hct 39.9, MCV 89.9, MCH 30.6, MCHC 34.1, RDW Coeff of Megan 13.5, Plt Count 136 L, Immature Gran % (Auto) 0.4, Neut % (Auto) 72.2, Lymph % (Auto) 20.1, [place] % (Auto) 4.1, Eos % (Auto) 2.8, Baso % (Auto) 0.4, Immature Gran # (Auto) 0.0, Neut # 4.1, Lymph # 1.1, [place] # 0.2 L, Eos # 0.2, Baso # 0.0, Sodium 136, Potassium 4.4, Chloride 97 L, Carbon Dioxide 27, Anion Gap 16.4, BUN 21 H, Creatinine 1.10, Estimated GFR (MDRD) 48.00, BUN/Creatinine Ratio 19.09, Glucose 102, Calcium 9.9, Total Bilirubin 1.75 H, AST 32, ALT 10 L, Alkaline Phosphatase 65, Total Creatine Kinase 40, Myoglobin 55, Troponin I 0.2180, B-Natriuretic Peptide 1249 H, Total Protein 7.1 , Albumin 3.8, Globulin 3.3, Albumin/Globulin Ratio 1.15, TSH 1.157, Free T4 1.26 H, Digoxin 1.43 02/25/17 14:49: Puncture Site Rrad, O2 Saturation 93.0 L, ABG pH 7.463 H, ABG pCO2 37.4, ABG pO2 62.0 L, ABG HCO3 26.8 H, ABG Total CO2 28, ABG Base Excess 3 H, Evaristo Test +, FiO2 % 21.0 ASSESSMENT: 1. Acute bronchitis/COPD exacerbation 2. Dehydration 3. Atrial fibrillation 4. CHF 5. Aortic stenosis 6. Mitral valve stenosis PLAN: 1. Resume Digoxin. 2. Continue IV Lasix , IV Solu-Cortef. 3. Elevate legs. 4. Low sodium diet. Plan and coordination of the patient's care discussed in the presence of Wastewater Supervisor and nurse. CONDITION: Stable SCRIBED BY: SHERYL HENSON Dairy And Food Laboratory Assistant scribed while in presence of service performed by Dr. KEVIN DRAKE/CARLEE MARMOLEJO APRN on 02/26/17 ([id number])
[2017-02-26] MEDS ORDERED: TORADOL IVP STA (13:33)
[2017-02-26] MEDS ORDERED: TORADOL IVP PRN (13:33)
--- NOTE | 2017-02-26 14:34 | HP ---
DATE OF SERVICE: 02/25/17 REASON FOR HOSPITALIZATION: "Feels terrible." HISTORY OF PRESENT ILLNESS: This is a 81-year-old female patient who states that she feels terrible. She has been coughing, with at times, bloody sputum times two days. No fever. Short of breath. Poor appetite. REVIEW OF SYSTEMS: CONSTITUTIONAL: Weakness and fatigue. No fever. HEENT: Sinus drainage. No sore throat. RESPIRATORY: Coughing with whitish-blood tinged cough. CARDIOVASCULAR: Shortness of breath. No atypical chest pain for coronary artery disease. No angina, CHF symptoms, or palpitations. GASTROINTESTINAL: Poor appetite. No melena or abdominal pain. No GERD. GENITOURINARY: No hematuria, no polyuria. HAND RIGGER: Dizziness. No blackout, no headache, no double vision. MUSCULOSKELETAL: Osteoarthritis pain. No joint swelling. ENDOCRINE: Weight loss of 8 lbs. SKIN: Not dry, no rash. PSYCHIATRIC: Anxious. No depression, no suicidal thoughts, no homicidal thoughts. PAST MEDICAL HISTORY: 1. COPD 2. Hypertension 3. Atrial fibrillation 4. Hypothyroidism 5. Aortic stenosis PAST SURGICAL HISTORY: 1. Pacemaker 2. C-spine fracture 3. Hysterectomy 4. Cataract MENSTRUAL HISTORY: Hysterectomy SOCIAL HISTORY: Nonsmoker. No alcohol use. No ilicit drug use. . Five children. Retired. FAMILY HISTORY: Father , mother , brther 1 - . One sister. MEDICATIONS: 1. Hydrocodone/acetaminophen 5/325 mg one p.o. four times per day as needed for pain 2. Omeprazole 20 mg capsule delayed release one capsule p.o. daily before a meal 3. Digoxin 125 mcg one p.o. one 5 days a week skipping Wed and Sun 4. Furosemide 40 mg one p.o. two times per day 5. Antivert 25 mg one p.o. t.i.d. p.r.n. 6. Zofran 4 mg one p.o. every 12 hours p.r.n. 7. Lotrisone 1.005% cream apply to affected area and surrounding areas of skin by topical route two times per day p.r.n. 8. Warfarin 3 mg one tablet p.o. one time per day 9. Diovan 80 mg one p.o. one time per day 10. Alprazolam 0.2 mg one p.o. two times per day p.r.n. 11. Propranolol 20 mg two tablets p.o. two times per day 12. Propylthiouracil 50 mg one tablet one time per day 13. Fish Oil 1000 take two tablets p.o. two times per day 14. Calcium one daily p.o. ALLERGIES: CIPROFLOXACIN HCI, DARVON, LIPITOR, CRESTOR PHYSICAL EXAMINATION: V/S: Pulse 65, BP 94/60, 02 sat 97%. Height 5'1", BMI 23, weight 126.6. GENERAL APPEARANCE: Oriented times three. HEENT: Yellow/bloody sputum. Pallor positive. NECK: No JVP, no bruits. RESPIRATORY: Decreased breath sounds. CARDIOVASCULAR: S1, S2, no S3. Grade III/ systolic ejection murmur. No cyanosis, clubbing. No ascites. GI/ABDOMEN: No tenderness. Bowel sounds are active. EXTREMITIES: +1 edema, improved. Pulses +1, equal. HAND RIGGER: Deep tendon reflexes, sensory, motor and gait all normal. RECTAL/PELVIC: Dr. Up colonoscopy 2004. Pelvic- patient refuses. ASSESSMENT: 1. ACUTE BRONCHITIS/COPD 2. DEHYDRATION 3. CHF 4. SEVERE AORTIC STENOSIS/MODERATE MITRAL STENOSIS 5. ATRIAL FIBRILLATION 6. HYPERTENSION 7. ACUTE CHF/LEG EDEMA 8. C-SPINE FRACTURE 9. DJD 10. HYPOTHYROIDISM 11. PACEMAKER 12. DEHYDRATION 13. ACUTE BRONCHITIS SINUSITIS 14. GALLBLADDER DYSFUNCTION PAST SURGICAL HISTORY: 1. Pacemaker 2. C-spine fracture 3. Hysterectomy 4. Cataract PLAN: 1. Admit regular ICU/SCU 2. Routine telemetry 3. IV Lasix 40 mg now and 2 q.a.m. STAT 4. Elevate legs 5. Solu-Cortef 100 mg IV p.o. STAT and 8 hourly 6. ABG (refused) 7. 1000 cc's D5 1/2 NS, 60 mLs/hr 8. Elevate legs 9. Coumadin 3 mg p.o. daily 10. Lanoxin level 11. BNP/T4/TSH 12. Diovan 40 mg p.o.q.a.m. 13. Inderal 20 mg p.o. b.i.d. 14. Propylthiouracil 50 mg p.o. daily 15. The patient is DNR. TIME SPENT: More than 70 minutes. MTDD
[2017-02-26] MEDS: NORCO 5-325 PO PRN (17:27)
[2017-02-26] MEDS ORDERED: COLACE PO PRN (21:45)
[2017-02-27] MEDS: XANAX PO PRN ×4 (01:14→22:05)
[2017-02-27] MEDS: SOLU-CORTEF 100 MG IVP SCH ×3 (04:39→20:10)
[2017-02-27] MEDS: LASIX IVP SCH (05:40)
[2017-02-27] MEDS: ASPIRIN EC PO SCH (09:11)
[2017-02-27] MEDS: DIOVAN PO SCH (09:12)
[2017-02-27] MEDS: INDERAL PO SCH ×2 (09:12→20:11)
[2017-02-27] MEDS: LANOXIN PO SCH (09:12)
[2017-02-27] MEDS: PROPYLTHIOURACIL PO SCH (09:12)
[2017-02-27] MEDS: NORCO 5-325 PO PRN (12:35)
[2017-02-27] MEDS: DEXTROSE 5%-1/2NS IV SOLUTION 1,000 ML IV SCH (16:53)
[2017-02-28] MEDS: SOLU-CORTEF 100 MG IVP SCH ×3 (04:53→22:31)
[2017-02-28] MEDS: LASIX IVP SCH (06:28)
[2017-02-28] MEDS ORDERED: LASIX IVP SCH (08:47)
[2017-02-28 09:10] LABS: HEMATOCRIT 36.9 % (37.0-47.0); HEMOGLOBIN 12.6 g/dl (12.0-16.0); IMMATURE GRANULOCYTE % (AUTO) 0.5 % (0.0-5.0); LYMPHOCYTES # (AUTO) 0.7 K/uL (0.60-3.4); MEAN CORPUSCULAR HEMOGLOBIN 30.5 pg (27.0-31.0); MEAN CORPUSCULAR HGB CONC 34.1 (31.8-35.4); MEAN CORPUSCULAR VOLUME 89.3 fl (81.0-99.0); MONOCYTES # (AUTO) 0.2 K/uL (0.4-2.0); MONOCYTES % (AUTO) 2.1 (0-10); NEUTROPHILS # (AUTO) 7.9 K/ul (2.0-6.9); NEUTROPHILS % (AUTO) 89.4; PLATELET COUNT 116 10^3/uL (140-440); RED BLOOD COUNT 4.13 10^6/ul (4.20-5.40); WHITE BLOOD COUNT 8.78 K/ul (4.6-10.2)
[2017-02-28 09:45] LABS: ALBUMIN 3.1 g/dL (3.4-5.0); ANION GAP 14.8; BILIRUBIN,TOTAL 0.9 mg/dL (0.00-1.20); BUN/CREATININE RATIO 22.55; CALCIUM 8.5 mg/dL (8.2-10.2); CREATININE 1.33 mg/dL (0.60-1.30); POTASSIUM 3.8 mmol/L (3.5-5.10); TOTAL PROTEIN 6.2 g/dL (5.8-8.1)
[2017-02-28 09:54] LABS: PROTHROMBIN TIME 46.2 SEC (9.3-11.0)
[2017-02-28] MEDS: ASPIRIN EC PO SCH (09:54)
[2017-02-28] MEDS: DIOVAN PO SCH (09:55)
[2017-02-28] MEDS: INDERAL PO SCH ×2 (09:55→22:39)
[2017-02-28] MEDS: PROPYLTHIOURACIL PO SCH (09:59)
[2017-02-28] MEDS: LANOXIN PO SCH (10:00)
[2017-02-28] MEDS: NORCO 5-325 PO PRN (13:53)
[2017-02-28] MEDS: XANAX PO PRN (22:32)
[2017-03-01] MEDS: SOLU-CORTEF 100 MG IVP SCH (04:17)
[2017-03-01] MEDS ORDERED: LASIX IVP SCH (06:30)
[2017-03-01] MEDS: PROPYLTHIOURACIL PO SCH (08:42)
[2017-03-01] MEDS: INDERAL PO SCH (08:42)
[2017-03-01] MEDS: DIOVAN PO SCH (08:42)
[2017-03-01] MEDS: LANOXIN PO SCH (08:42)
[2017-03-01] MEDS: ASPIRIN EC PO SCH (08:42)
[2017-03-01 09:06] LABS: PROTHROMBIN TIME 25.3 SEC (9.3-11.0)
[2017-03-01 09:27] VITALS: BP 134/57; TEMP 97.3
--- NOTE | 2017-03-01 09:50 | CM.DICTOOL ---
ADMISSION: 02/25/17 14:40 DISCHARGE: 03/01/17 ACUTE BRONCHITIS COPD DEHYDRATION CHF LEG EDEMA SEVERE AORTIC STENOSIS MODERATE MITRAL STENOSIS ATRIAL FIBRILLATION PACEMAKER HYPOTENSION HYPOTHYROID LAST VITALS Temp Pulse Resp BP Pulse Ox 97.3 F L 64 18 134/57 L 94 L 03/01/17 09:26 03/01/17 09:26 03/01/17 09:26 03/01/17 09:26 03/01/17 09:26 ACTIVE MEDICATIONS Acetaminophen (Tylenol) 650 mg PO Q4H PRN PRN Reason: Headache Acetaminophen/Hydrocodone Bitart (Odell 5-325) 1 tab PO Q8HR PRN PRN Reason: Mild Pain Last Admin: 02/28/17 13:53 Dose: 1 tab Alprazolam (Xanax) 0.25 - 0.5 mg PO BID PRN PRN Reason: Anxiety Last Admin: 02/28/17 22:32 Dose: 0.5 mg Digoxin (Lanoxin) 125 mcg PO DAILY [facility] Last Admin: 03/01/17 08:42 Dose: 125 mcg Nitroglycerin (Nitrostat) 0.4 mg SL Q5MIN X 3 DOSES PRN PRN Reason: Chest Pain Propranolol HCl (Inderal) 20 mg PO BID [facility] Last Admin: 03/01/17 08:42 Dose: 20 mg Propylthiouracil (Propylthiouracil) 50 mg PO DAILY [facility] Last Admin: 03/01/17 08:42 Dose: 50 mg Valsartan (Diovan) 40 mg PO DAILY [facility] Last Admin: 03/01/17 08:42 Dose: 40 mg ALLERGIES ciprofloxacin [From Cipro] Adverse Reaction (Verified 11/09/16 22:13) ciprofloxacin HCl [From Cipro] Adverse Reaction (Verified 11/09/16 22:13) propoxyphene HCl [From Darvon] Adverse Reaction (Verified 11/09/16 22:13) NEW PRESCRIPTIONS: NEW MEDICATION: 1. PREDNISONE 20MG BY MOUTH DAILY X 5 DAYS. DISEASE SPECIFIC EDUCATION: BRONCHITIS MEDICATIONS DIET ACTIVITY BLEEDING PRECAUTIONS LAB REVIEW: 02/28/17 09:00 02/28/17 09:00 03/01/17 08:31: PT 25.3 H D, INR 2.46 D 02/28/17 09:00: PT 46.2 H D, INR 4.49 H*, Sodium 133 L, Potassium 3.8, Chloride 97 L, Carbon Dioxide 25, Anion Gap 14.8, BUN 30 H, Creatinine 1.33 H, Estimated GFR (MDRD) 38.00, BUN/Creatinine Ratio 22.55, Glucose 156 H, Calcium 8.5, Total Bilirubin 0.90, AST 31, ALT 12, Alkaline Phosphatase 52 L, Total Protein 6.2, Albumin 3.1 L, Globulin 3.1, Albumin/Globulin Ratio 1.00 PLAN: DISCHARGE TO HOME TODAY. CONTINUE HOME MEDS PER NURSING SHEET WITH CHANGES: 1. DECREASE INDERAL TO 20MG BY MOUTH 2 TIMES A DAY 2. DECREASE DIOVAN TO 40MG BY MOUTH DAILY 3. DO NOT TAKE COUMADIN OR ANY ASPIRIN TODAY. 4. RESUME COUMADIN TOMORROW NEW MEDICATION: 1. PREDNISONE 20MG BY MOUTH DAILY X [address] UP WITH DR. DRAKE ON WednesdayFebruary AT 145PM. TAKE YOUR DISCHARGE PAPERS INCLUDING MEDICATION LIST TO APPOINTMENT. DIET TOLERATED ACTIVITY TOLERATED MONITOR BLOOD PRESSURE 2 TIMES A DAY AND TAKE RESULTS TO APPOINTMENT. SITTING UP IN BED. ALERT AND ORIENTED X 4. M. FRANCIE CODY INTO SEE PATIENT FOR DR. DRAKE. PLAN OF CARE DISCUSSED. PATIENT AGREEABLE. APPETITE IS FAIR. VITAL SIGNS ARE STABLE. REQUESTING TO GO HOME. VOICE REMAINS HOARSE. HEART TONES ARE REGULAR WITH MURMUR NOTED AND TELEMETRY REVEALING V-PACED. DENIES CHEST PAIN. LUNGS ARE CLEAR WITH DIMINISHED BREATH SOUNDS. DENIES COUGH. HAS DYSPNEA WITH ACTIVITY. O2 AT 2L/C. ABDOMEN IS SOFT, DENIES TENDERNESS WITH BOWEL SOUNDS POSITIVE IN ALL 4 QUADS. PEDAL PULSES POSITIVE WITHOUT EDEMA. SKIN IS WARM, DRY AND INTACT. COLOR IS GOOD. IS FALL RISK WITH FALL PRECAUTIONS IN USE. IS A STAND BY ASSIST WITH UNSTEADY/SLOW GAIT. VITAL SIGNS ARE STABLE. NO ACUTE DISTRESS NOTED. DR. KEVIN DRAKE MD Miguel Angel MARMOLEJO APRN
--- NOTE | 2017-03-01 11:08 | PCM.PROG ---
Attending Provider: ATTENDING PROVIDER: Dr. KEVIN DRAKE DATE OF SERVICE: 03/01/17 SUBJECTIVE: This 81 year old WHITE/ F was hospitalized 02/25/17. The patient is lying in bed states shortness of breath is better. The patient is ready to go home; she states "today is payday". She was up and about yesterday. The son is available to pick her up today. REVIEW OF SYSTEMS: CONSTITUTIONAL: Fatigue. No night sweats. No fever or chills. HEENT: Eyes: No visual changes. No eye pain. No eye discharge. ENT: No runny nose. No epistaxis. No sinus pain. No odynophagia. No congestion. RESPIRATORY: No cough, no congestion. No hemoptysis. CARDIOVASCULAR: No angina symptoms. No CHF symptoms. No atypical chest pain for CAD. No palpitations. Mild shortness of breath. GASTROINTESTINAL: No abdominal pain. No nausea or vomiting. No diarrhea or constipation. No hematemesis. No hematochezia. GENITOURINARY: No urgency. No frequency. No dysuria. No hematuria. No obstructive symptoms. No discharge. No pain. No significant abnormal bleeding. MUSCULOSKELETAL: No musculoskeletal pain; no joint swelling. NEUROLOGICAL: Awake, alert, oriented to time, place and person. No headache. No neck pain. No syncope. No seizures. No dizziness. PSYCHIATRIC: Not anxious. No depression. No suicidal thoughts. No homicidal thoughts. SKIN: No rash. No lesions. No wounds. ENDOCRINE: No unexplained weight loss. No weight gain. HEMATOLOGIC/LYMPHATIC: No anemia. No purpura. No petechiae. No prolonged or excessive bleeding. No palpable lymph nodes. PHYSICAL EXAMINATION: GENERAL: The patient is awake, alert and oriented, lying in bed in no distress. VITAL SIGNS: Temperature 96.7 F, Pulse 60, Respiratory Rate 18, BP 103/61, Pulse Ox 98% HEENT: Head normocephalic, atraumatic. Eyes: Extraocular muscles are intact. Pupils are equal, round and reactive to light and accommodation. Ears: No lesions. Nose appeared normal. Throat: No exudate or erythema. NECK: Supple. No JVD, no carotid bruit. No lymphadenopathy or thyromegaly. LUNGS: Clear equally bilaterally diminished to auscultation. Percussion note normal. Chest symmetrical. HEART: S1, S2, no S3. Grade III/ systolic murmur. No cyanosis or clubbing. No ascites. Pulses: Dorsalis pedis and posterior tibial pulses +1 to +2 both sides. ABDOMEN: Soft. Non-tender. Bowel sounds active. No CVA tenderness. No mass felt. EXTREMITIES: No edema. Full range of motion of all extremities, equal. NEUROLOGIC: No focal deficit. Cranial nerves II through XII are grossly intact. No headache, no double vision or headache. SKIN: Not dry. Intact. Turgor-normal. LYMPHATIC: No palpable lymph nodes/no lymphedema. MUSCULOSKELETAL: Normal joints with no swelling. Muscle tone is normal. LAB REVIEW: 02/28/17 09:00 02/28/17 09:00 02/28/17 09:00: WBC 8.78, RBC 4.13 L, Hgb 12.6, Hct 36.9 L, MCV 89.3, MCH 30.5, MCHC 34.1, RDW Coeff of Megan 13.4, Plt Count 116 L, Immature Gran % (Auto) 0.5, Neut % (Auto) 89.4, Lymph % (Auto) 8.0 L, [place] % (Auto) 2.1, Eos % (Auto) 0.0, Baso % (Auto) 0.0, Immature Gran # (Auto) 0.0, Neut # 7.9 H, Lymph # 0.7, [place] # 0.2 L, Eos # 0.0, Baso # 0.0, PT 46.2 H D, INR 4.49 H*, Sodium 133 L, Potassium 3.8, Chloride 97 L, Carbon Dioxide 25, Anion Gap 14.8, BUN 30 H, Creatinine 1.33 H, Estimated GFR (MDRD) 38.00, BUN/Creatinine Ratio 22.55, Glucose 156 H, Calcium 8.5, Total Bilirubin 0.90, AST 31, ALT 12, Alkaline Phosphatase 52 L, Total Protein 6.2, Albumin 3.1 L, Globulin 3.1, Albumin/ Globulin Ratio 1.00 ASSESSMENT: 1. Acute bronchitis/COPD exacerbation 2. Dehydration 3. Atrial fibrillation 4. CHF 5. Aortic stenosis 6. Mitral valve stenosis PLAN: 1. Hold Coumadin until repeat INR today. 2. Anticipate discharge home today. 3. Prednisone 20 mg for 5 days daily. 4. Discrease Inderal to 20 b.i.d. p.o. 5. Diovan 40 mg daily. 6. Discharge home today. Plan and coordination of the patient's care discussed in the presence of Urology Teacher and nurse. CONDITION: Stable SCRIBED BY: SHERYL HENSON Circus Performer scribed while in presence of service performed by Dr. KEVIN DRAKE/CARLEE MARMOLEJO APRN on 03/01/17 ([id number])
--- NOTE | 2017-03-01 12:41 | PN ---
DATE OF SERVICE: 02/26/17 the patient was seen with Nurse Practitioner and physical examination was done with her. SUBJECTIVE: The patient is a 81 year old white female hospitalized with acute bronchitis, COPD, dehydration, leg edema, atrial fibrillation, severe, aortic and mitral stenosis. The patient's health is failing and cardio output is low. The patient received steroids slow IV fluids. Dose of Diovan was reduced. The patient had allergy bronchitis and did not have any yellowish sputum production. The patient lives by herself and unable to take care of herself. In any case the patient's condition improved. REVIEW OF SYSTEMS: CONSTITUTIONAL: No night sweats. No fatigue, malaise, lethargy. No fever or chills. HEENT: Eyes: No visual changes. No eye pain. No eye discharge. ENT: No runny nose. No epistaxis. No sinus pain. No sore throat. No odynophagia. No congestion. RESPIRATORY: No cough, no congestion. No hemoptysis. CARDIOVASCULAR: No angina symptoms. No CHF symptoms. No atypical chest pain for CAD. No palpitations. No shortness of breath. GASTROINTESTINAL: No abdominal pain. No nausea or vomiting. No diarrhea or constipation. No hematemesis. No hematochezia. GENITOURINARY: No urgency. No frequency. No dysuria. No hematuria. No obstructive symptoms. No discharge. No pain. No significant abnormal bleeding. MUSCULOSKELETAL: No musculoskeletal pain; no joint swelling. NEUROLOGICAL: No headache. No neck pain. No syncope. No seizures. No dizziness. PSYCHIATRIC: Not anxious. No depression. No suicidal thoughts. No homicidal thoughts. SKIN: No rash. No lesions. No wounds. ENDOCRINE: No unexplained weight loss. No weight gain. HEMATOLOGIC/LYMPHATIC: No anemia. No purpura. No petechiae. No prolonged or excessive bleeding. No palpable lymph nodes. PHYSICAL EXAMINATION: HEENT: Head normocephalic, atraumatic. Eyes: Extraocular muscles are intact. Pupils are equal, round and reactive to light and accommodation. Ears: No lesions. Nose appeared normal. Throat: No exudate or erythema. NECK: Supple. No JVD, no carotid bruit. No lymphadenopathy or thyromegaly. LUNGS: Clear to auscultation. Percussion note normal. Chest symmetrical. HEART: S1, S2, no S3. Grade III/ systolic murmurs. No cyanosis or clubbing. No ascites. Pulses: Dorsalis pedis and posterior tibial pulses +1 to +2 both sides. ABDOMEN: Soft. Nontender. Bowel sounds active. No CVA tenderness. No mass felt. EXTREMITIES: No edema. Full range of motion of all extremities, equal. NEUROLOGIC: No focal deficit. Cranial nerves II through XII are grossly intact. No headache, no double vision or headache. SKIN: Not dry. Intact. Turgor - normal. LYMPHATIC: No palpable lymph nodes/no lymphedema. MUSCULOSKELETAL: Normal joints with no swelling. Muscle tone is normal. ASSESSMENT: 1. Bronchitis, resolving with steroids PLAN: 1. IV hydration improved 2. Telemetry did not show any arrhythmias 3. Restart the Lanoxin 4. Restart Xanax and [place] CONDITION: Stable PROGNOSIS: Poor. TIME SPENT: More than 30 minutes. Plan and coordination of the patient's care discussed in the presence of nurse. OLLIE
--- NOTE | 2017-03-01 13:20 | PN ---
DATE OF SERVICE: 02/27/17 SUBJECTIVE: The patient is a 81 year old white female hospitalized with acute bronchitis and dehydration. The patient has severe aortic stenosis inoperable and also moderate to severe mitral stenosis. The patient's CHF seems to be under control. She is feeling a lot better. Her left hip pain has been under control with Toradol and [place]. The patient is oriented to time, place and person. REVIEW OF SYSTEMS: CONSTITUTIONAL: No night sweats. No fatigue, malaise, lethargy. No fever or chills. HEENT: Eyes: No visual changes. No eye pain. No eye discharge. ENT: No runny nose. No epistaxis. No sinus pain. No sore throat. No odynophagia. No congestion. RESPIRATORY: No cough, no congestion. No hemoptysis. CARDIOVASCULAR: No angina symptoms. No CHF symptoms. No atypical chest pain for CAD. No palpitations. No shortness of breath. GASTROINTESTINAL: No abdominal pain. No nausea or vomiting. No diarrhea or constipation. No hematemesis. No hematochezia. Improved appetite. GENITOURINARY: No urgency. No frequency. No dysuria. No hematuria. No obstructive symptoms. No discharge. No pain. No significant abnormal bleeding. MUSCULOSKELETAL: No musculoskeletal pain; no joint swelling. NEUROLOGICAL: No headache. No neck pain. No syncope. No seizures. No dizziness. PSYCHIATRIC: Not anxious. No depression. No suicidal thoughts. No homicidal thoughts. SKIN: No rash. No lesions. No wounds. ENDOCRINE: No unexplained weight loss. No weight gain. HEMATOLOGIC/LYMPHATIC: No anemia. No purpura. No petechiae. No prolonged or excessive bleeding. No palpable lymph nodes. PHYSICAL EXAMINATION: GENERAL: The patient is oriented to time, place and person. VITAL SIGNS: Temperature 96.8, pulse 60, respiratory rate 20, blood pressure 110/64 and pulse ox 96%. HEENT: Head normocephalic, atraumatic. Eyes: Extraocular muscles are intact. Pupils are equal, round and reactive to light and accommodation. Ears: No lesions. Nose appeared normal. Throat: No exudate or erythema. NECK: Supple. No JVD, no carotid bruit. No lymphadenopathy or thyromegaly. LUNGS: Decreased breath sounds but clear to auscultation. Percussion note normal. Chest symmetrical. HEART: S1, S2, no S3. Grade III/ systolic murmurs. No cyanosis or clubbing. No ascites. Pulses: Dorsalis pedis and posterior tibial pulses +1 to +2 both sides. ABDOMEN: Soft. Nontender. Bowel sounds active. No CVA tenderness. No mass felt. EXTREMITIES: No edema. Full range of motion of all extremities, equal. NEUROLOGIC: No focal deficit. Cranial nerves II through XII are grossly intact. No headache, no double vision or headache. SKIN: Not dry. Intact. Turgor - normal. LYMPHATIC: No palpable lymph nodes/no lymphedema. MUSCULOSKELETAL: Normal joints with no swelling. Muscle tone is normal. ASSESSMENT: 1. Bronchitis symptoms under control which seems to be allergic 2. Dehydration, seems to have resolved with good skin turgor 3. Congestive heart failure under control 4. COPD PLAN: 1. Continue the same treatment 2. The patient is advised to be up and about 3. The patient's INR is 5.79 and will hold Coumadin 4. The patient wants DNR TIME SPENT: More than 30 minutes. Plan and coordination of the patient's care discussed in the presence of nurse. OLLIE
--- NOTE | 2017-03-08 15:37 | PN ---
DATE OF SERVICE: 03/01/17 SUBJECTIVE: The patient was seen with the Nurse Practitioner. The patient is up and about doing well and wants to go home. She is stable and appetite has improved. Bronchi symptoms have resolved. REVIEW OF SYSTEMS: CONSTITUTIONAL: No night sweats. No fatigue, malaise, lethargy. No fever or chills. HEENT: Eyes: No visual changes. No eye pain. No eye discharge. ENT: No runny nose. No epistaxis. No sinus pain. No sore throat. No odynophagia. No congestion. RESPIRATORY: No cough, no congestion. No hemoptysis. CARDIOVASCULAR: No angina symptoms. No CHF symptoms. No atypical chest pain for CAD. No palpitations. No shortness of breath. No PND. No orthopnea. GASTROINTESTINAL: No abdominal pain. No nausea or vomiting. No diarrhea or constipation. No hematemesis. No hematochezia. GENITOURINARY: No urgency. No frequency. No dysuria. No hematuria. No obstructive symptoms. No discharge. No pain. No significant abnormal bleeding. MUSCULOSKELETAL: No musculoskeletal pain; no joint swelling. NEUROLOGICAL: No headache. No neck pain. No syncope. No seizures. No dizziness. PSYCHIATRIC: Not anxious. No depression. No suicidal thoughts. No homicidal thoughts. SKIN: No rash. No lesions. No wounds. ENDOCRINE: No unexplained weight loss. No weight gain. HEMATOLOGIC/LYMPHATIC: No anemia. No purpura. No petechiae. No prolonged or excessive bleeding. No palpable lymph nodes. PHYSICAL EXAMINATION: GENERAL: The patient is up and about. VITAL SIGNS: Stable HEENT: Head normocephalic, atraumatic. Eyes: Extraocular muscles are intact. Pupils are equal, round and reactive to light and accommodation. Ears: No lesions. Nose appeared normal. Throat: No exudate or erythema. NECK: Supple. No JVD, no carotid bruit. No lymphadenopathy or thyromegaly. LUNGS: Decreased breath sounds but clear to auscultation. Percussion note normal. Chest symmetrical. HEART: S1, S2, no S3. Grade II/ systolic ejection murmurs. No cyanosis or clubbing. No ascites. Pulses: Dorsalis pedis and posterior tibial pulses +1 to +2 both sides. ABDOMEN: Soft. Nontender. Bowel sounds active. No CVA tenderness. No mass felt. EXTREMITIES: No edema. Full range of motion of all extremities, equal. NEUROLOGIC: No focal deficit. Cranial nerves II through XII are grossly intact. No headache, no double vision or headache. SKIN: Not dry. Intact. Turgor - normal. LYMPHATIC: No palpable lymph nodes/no lymphedema. MUSCULOSKELETAL: Normal joints with no swelling. Muscle tone is normal. PLAN: 1. The patient is to be seen the day after tomorrow in the office. 2. INR was reported which was approximated 2.2 and advised to skip Coumadin today and take it tomorrow. CONDITION: Stable TIME SPENT: More than 30 minutes. Plan and coordination of the patient's care discussed in the presence of nurse. OLLIE
--- NOTE | 2017-03-08 15:43 | PN ---
DATE OF SERVICE: 02/28/17 SUBJECTIVE: The patient is a 81 year old white female hospitalized with acute bronchitis, COPD, dehydration and weakness. The patient's condition definitely has improved. Bronchitis symptoms which seems to be allergic seems to have improved with steroids. The patient's slow hydration has worked and has improved her hydration status and her skin turgor is a lot better. REVIEW OF SYSTEMS: CONSTITUTIONAL: No night sweats. Weakness. No fever or chills. HEENT: Eyes: No visual changes. No eye pain. No eye discharge. ENT: No runny nose. No epistaxis. No sinus pain. No sore throat. No odynophagia. No congestion. RESPIRATORY: No cough, no congestion. No hemoptysis. CARDIOVASCULAR: No angina symptoms. No CHF symptoms. No atypical chest pain for CAD. No palpitations. Mild shortness of breath on exertion. No PND. No Orthopnea. GASTROINTESTINAL: No abdominal pain. No nausea or vomiting. No diarrhea or constipation. No hematemesis. No hematochezia. GENITOURINARY: No urgency. No frequency. No dysuria. No hematuria. No obstructive symptoms. No discharge. No pain. No significant abnormal bleeding. MUSCULOSKELETAL: No musculoskeletal pain; no joint swelling. NEUROLOGICAL: No headache. No neck pain. No syncope. No seizures. No dizziness. PSYCHIATRIC: Not anxious. No depression. No suicidal thoughts. No homicidal thoughts. SKIN: No rash. No lesions. No wounds. ENDOCRINE: No unexplained weight loss. No weight gain. HEMATOLOGIC/LYMPHATIC: No anemia. No purpura. No petechiae. No prolonged or excessive bleeding. No palpable lymph nodes. PHYSICAL EXAMINATION: GENERAL: The patient is oriented to time, place and person VITAL SIGNS: Temperature 98.6, pulse 70, respiratory rate 15, blood pressure 130/70. HEENT: Head normocephalic, atraumatic. Eyes: Extraocular muscles are intact. Pupils are equal, round and reactive to light and accommodation. Ears: No lesions. Nose appeared normal. Throat: No exudate or erythema. NECK: Supple. No JVP, no carotid bruit. No lymphadenopathy or thyromegaly. LUNGS: Decreased breath sounds but clear to auscultation. Percussion note normal. Chest symmetrical. HEART: S1, S2, no S3. Grade III/ systolic murmurs. No cyanosis or clubbing. No ascites. Pulses: Dorsalis pedis and posterior tibial pulses +1 to +2 both sides. ABDOMEN: Soft. Nontender. Bowel sounds active. No CVA tenderness. No mass felt. EXTREMITIES: No edema. Full range of motion of all extremities, equal. NEUROLOGIC: No focal deficit. Cranial nerves II through XII are grossly intact. No headache, no double vision or headache. SKIN: Not dry. Intact. Turgor - normal. LYMPHATIC: No palpable lymph nodes/no lymphedema. MUSCULOSKELETAL: Normal joints with no swelling. Muscle tone is normal. ASSESSMENT: 1. Bronchitis, seems to have resolved 2. Dehydration, seems to be resolved 3. Congestive heart failure, under control 4. Severe Aortic stenosis 5. Mitral stenosis PLANS: 1. INR is 5.79 so will continue to hold Coumadin until the INR is less than 2 CONDITION: Stable TIME SPENT: More than 30 minutes. Plan and coordination of the patient's care discussed in the presence of nurse. OLLIE
--- NOTE | 2017-03-11 13:44 | DS ---
DATE OF SERVICE: 03/01/17 FINAL DIAGNOSIS: 1. ACUTE BRONCHITIS 2. COPD 3. DEHYDRATION 4. CHF 5. LEG EDEMA 6. SEVERE AORTIC STENOSIS 7. MODERATE MITRAL STENOSIS 8. ATRIAL FIBRILLATION 9. PACEMAKER 10. HYPOTENSION 11. HYPOTHYROID DISCHARGE INSTRUCTIONS: Followup appointment with Dr. Villagran on March 03 at 1:45 p.m. Take your discharge papers including medication list to appointment. MEDICATIONS AT DISCHARGE: 1. Meclizine (Antivert) 25 mg p.o. t.i.d. p.r.n. 2. Wafarin (Coumadin) 3 mg p.o. daily 3. Omeprazole (Prilosec) 20 mg p.o. q.d a.c. p.r.n. 4. Ondansetron (Zofran) 4 mg p.o. q.12h p.r.n. 5. Furosemide (Lasix) 40 mg p.o. q.d a.c. 6. Digoxin (Lanoxin) 125 mcg p.o. daily 7. Clotrimazole/Betamethasone one application TP b.i.d. p.r.n. 8. Alprazolam (Xanax) 0.25-0.5 mg p.o. b.i.d. p.r.n. 9. Hydrocodone/Acetaminophen one tab p.o. q.i.d. p.r.n. MEDICATION CHANGES: 1. Decrease Inderal to 20 mg p.o. two times a day. 2. Decrease Diovan to 40 mg p.o. daily. 3. Do not take Coumadin or any aspirin today. 4. Resume Coumadin tomorrow. NEW PRESCRIPTIONS: 1. Prednisone 20 mg p.o. daily times five days. DIET INSTRUCTIONS: As tolerated. ACTIVITY: As tolerated. SMOKING: N/A DISEASE SPECIFIC EDUCATION: 1. BRONCHITIS 2. MEDICATIONS 3. DIET 4. ACTIVITY 5. BLEEDING PRECAUTIONS HOSPITAL COURSE: 81-year-old female which was a direct admit from the office with acute bronchitis, COPD exacerbation, dehydration, atrial fibrillation and CHF. At the time being seen in the office, the patient reported that she had been coughing for several days. She was feeling weak and shortness of breath Her oxygen saturation in the office was 92%. She was admitted. Chest x-ray was completed which showed acute bronchitis. The patient was admitted, placed on 20 mg IV push Lasix, Solu-Cortef 100 mg q.8hr. During the course of her hospital stay, her cough improved. She did have some episodes of hypotension which we changed her medication and decreased her Inderal to 20 mg p.o. b.i.d. from 40 and also decreased her Diovan to 40 mg daily from 80 mg. Her INR remained elevated during the course of her hospital stay. Today it was 2.21, on repeat yesterday it had been 4.49. We have been holding her Coumadin for the past 3 days. She will continue to hold this Coumadin until we see her in the office on Wednesday. She had been taking 3 mg of Coumadin daily for her history of atrial fibrillation. Upon discharge, her oxygen saturation had improved and was 97%. Her blood pressure had also improved and was 134/57 which it had been 103/61 on admission. She remained afebrile during the course of her stay. She had showed steady improvement with steroids and with diuretics. She will be discharged home on Prednisone 20 mg p.o. daily for the next five days. Kidney function had improved. At time of discharge, BUN 30, creatinine 1.33, potassium 3.8, sodium 133. On discharge, the patient had no edema in bilateral lower extremities. She stated she had been up and about walking without assistance. She had been eating 75 to 100% of her meals. She stated that she was ready to go home and had significant improvement from admission on 02/25. We will discharge her home today. As previously stated we will hold the Coumadin until we see her on March 03 at 1:45 p.m. TIME SPENT: More than 60 minutes. OLLIE
== END 2017-03-01 10:30 | disposition home or self-care (01) | DRG 192 ==
LOC: SCU 14:40 → MEDSURG B 02-27 17:20
PROVIDERS: ADMIT Internal Medicine; ATTEND Internal Medicine
DX: J44.0 Chronic obstructive pulmonary disease with (acute) lower respiratory infection (principal); J44.1 Chronic obstructive pulmonary disease with (acute) exacerbation; J20.9 Acute bronchitis, unspecified; E86.0 Dehydration; I50.9 Heart failure, unspecified; R60.0 Localized edema; I35.0 Nonrheumatic aortic (valve) stenosis; I05.0 Rheumatic mitral stenosis; R06.02 Shortness of breath; I95.9 Hypotension, unspecified; E03.9 Hypothyroidism, unspecified; Z95.0 Presence of cardiac pacemaker; Z79.01 Long term (current) use of anticoagulants; Z79.899 Other long term (current) drug therapy
CPT/HCPCS: 36415; 80053; 80162; 81001; 82550; 82803; 83874; 83880; 84439; 84443; 84484; 85025; 85610; 87081; 93005; 93010

== ENCOUNTER 2017-03-24 15:40 | Inpatient (IN) | payer OTHER ==
[2017-03-24] MEDS ORDERED: VISTARIL INJ IM PRN (16:56)
[2017-03-24] MEDS ORDERED: MORPHINE 4 MG/ML SYRINGE IVP PRN (16:56)
[2017-03-24] MEDS ORDERED: TYLENOL PO PRN (16:56)
[2017-03-24] MEDS ORDERED: ATROPINE SULFATE PFS IVP PRN (16:56)
[2017-03-24] MEDS ORDERED: NITROSTAT SL PRN (16:56)
[2017-03-24 17:23] LABS: BASOPHILS % (AUTO) 0.2 % (0.0-3.0); EOSINOPHILS # (AUTO) 0.2 K/ul (0.0-0.7); HEMATOCRIT 33.2 % (37.0-47.0); HEMOGLOBIN 11.6 g/dl (12.0-16.0); IMMATURE GRANULOCYTE % (AUTO) 0.2 % (0.0-5.0); LYMPHOCYTES % (AUTO) 21.5 (10.0-50.0); MEAN CORPUSCULAR HEMOGLOBIN 31.1 pg (27.0-31.0); MEAN CORPUSCULAR HGB CONC 34.9 (31.8-35.4); MONOCYTES # (AUTO) 0.3 K/uL (0.4-2.0); MONOCYTES % (AUTO) 5.6 (0-10); NEUTROPHILS # (AUTO) 3.3 K/ul (2.0-6.9); NEUTROPHILS % (AUTO) 68.5; PLATELET COUNT 160 10^3/uL (140-440); RED BLOOD COUNT 3.73 10^6/ul (4.20-5.40)
[2017-03-24 17:36] LABS: ALBUMIN 3.3 g/dL (3.4-5.0); ALBUMIN/GLOBULIN RATIO 1.18; ANION GAP 14.2; BILIRUBIN,TOTAL 1.67 mg/dL (0.00-1.20); BUN/CREATININE RATIO 12.82; CALCIUM 9.3 mg/dL (8.2-10.2); CREATININE 1.17 mg/dL (0.60-1.30); POTASSIUM 4.2 mmol/L (3.5-5.10); TOTAL PROTEIN 6.1 g/dL (5.8-8.1)
[2017-03-24] MEDS ORDERED: ZOFRAN TAB PO PRN (17:37)
[2017-03-24] MEDS ORDERED: PRILOSEC PO PRN (17:37)
[2017-03-24] MEDS ORDERED: LOTRISONE 15 GM TP PRN (17:37)
[2017-03-24] MEDS ORDERED: ANTIVERT PO PRN (17:37)
[2017-03-24 17:43] LABS: TROPONIN I 0.094 ng/ml (0.0000-0.4000)
[2017-03-24] MEDS ORDERED: COUMADIN PO SCH (18:00)
[2017-03-24] MEDS: LASIX IVP SCH (18:12)
[2017-03-24] MEDS: DECADRON 4 MG/ML SDV IM SCH (18:13)
[2017-03-24] MEDS ORDERED: COUMADIN PO STA (18:56)
[2017-03-24] MEDS: OMEGA-3 FISH OIL ONE ×2 (20:02→20:09)
[2017-03-24] MEDS: INDERAL PO SCH (20:09)
[2017-03-24 20:40] LABS: BILIRUBIN,URINE Negative (NEGATIVE); KETONES,URINE Negative (NEGATIVE); LEUKOCYTE ESTERASE ,URINE Negative (NEGATIVE); NITRITE,URINE Negative (NEGATIVE); PROTEIN,URINE Trace (NEGATIVE); URINE, BLOOD 1+ (NEGATIVE)
[2017-03-24 20:41] LABS: ADD URINE MICROSCOPIC YES
[2017-03-24] MEDS ORDERED: NON-FORMULARY MEDICATION (Omega-3 Fatty Acids/Fish Oil [Fish Oil 1,000 Mg Capsule] 2 EACH) PO SCH ×22 (21:00)
[2017-03-24 21:07] VITALS: BMI 26.8
[2017-03-24] MEDS: XANAX PO PRN (23:48)
[2017-03-25 01:11] LABS: ALBUMIN 3.2 g/dL (3.4-5.0); ALBUMIN/GLOBULIN RATIO 1.07; BASOPHILS % (AUTO) 0.7 % (0.0-3.0); BILIRUBIN,TOTAL 1.49 mg/dL (0.00-1.20); BUN/CREATININE RATIO 15.53; CALCIUM 9.3 mg/dL (8.2-10.2); CREATININE 1.03 mg/dL (0.60-1.30); EOSINOPHILS % (AUTO) 0.3 % (0.0-7.0); HEMATOCRIT 33.6 % (37.0-47.0); HEMOGLOBIN 11.8 g/dl (12.0-16.0); LYMPHOCYTES # (AUTO) 0.4 K/uL (0.60-3.4); LYMPHOCYTES % (AUTO) 14.9 (10.0-50.0); MEAN CORPUSCULAR HEMOGLOBIN 31.2 pg (27.0-31.0); MEAN CORPUSCULAR HGB CONC 35.1 (31.8-35.4); MEAN CORPUSCULAR VOLUME 88.9 fl (81.0-99.0); MONOCYTES % (AUTO) 1.4 (0-10); NEUTROPHILS # (AUTO) 2.4 K/ul (2.0-6.9); NEUTROPHILS % (AUTO) 81.7; PLATELET COUNT 140 10^3/uL (140-440); RED BLOOD COUNT 3.78 10^6/ul (4.20-5.40); TOTAL PROTEIN 6.2 g/dL (5.8-8.1); WHITE BLOOD COUNT 2.88 K/ul (4.6-10.2)
[2017-03-25 01:18] LABS: TROPONIN I 0.096 ng/ml (0.0000-0.4000)
[2017-03-25 01:35] LABS: PROTHROMBIN TIME 42.2 SEC (9.3-11.0)
[2017-03-25] MEDS ORDERED: PROPYLTHIOURACIL PO SCH (05:30)
--- NOTE | 2017-03-25 06:19 | DI ---
EXAM: Chest, single view 03/24/2017 HISTORY: Congestive heart failure COMPARISON: 02/25/2017 FINDINGS / IMPRESSION: Cardiomediastinal contours appear enlarged. Left-sided pacer device in plac e Bilateral pleural effusions. Diffuse pulmonary edema. Correlate for congestive heart failure. Sup erimposed basilar pneumonia not excluded.
[2017-03-25] MEDS: LASIX IVP SCH (06:47)
[2017-03-25] MEDS ORDERED: NON-FORMULARY MEDICATION (Potassium Chloride [Klor-Con 10] 10 MEQ) PO SCH ×22 (09:00)
[2017-03-25] MEDS ORDERED: VALSARTAN 80 MG PO SCH (09:00)
[2017-03-25] MEDS ORDERED: NON-FORMULARY MEDICATION (Calcium Carbonate [Calcium] 600 MG) PO SCH ×22 (09:00)
[2017-03-25] MEDS: CALCIUM 500 + VIT D 200 MG TABLET PO SCH (09:04)
[2017-03-25] MEDS: ASPIRIN EC PO SCH (09:04)
[2017-03-25] MEDS: OMEGA-3 FISH OIL PO SCH ×2 (09:05→20:00)
[2017-03-25] MEDS: INDERAL PO SCH ×2 (09:05→20:00)
[2017-03-25] MEDS: LANOXIN PO SCH (09:05)
[2017-03-25] MEDS: PROPYLTHIOURACIL PO SCH (09:06)
[2017-03-25] MEDS: DIOVAN PO SCH (09:07)
[2017-03-25] MEDS: MICRO-K CAP PO SCH (09:07)
[2017-03-25] MEDS: ROCEPHIN 1 GM in SODIUM CHLORIDE 50 ML IV SCH (09:58)
--- NOTE | 2017-03-25 10:43 | HP ---
DATE OF SERVICE: 03/24/17 REASON FOR HOSPITALIZATION: Shortness of breath, leg edema and orthopnea HISTORY OF PRESENT ILLNESS: This is a 81-year-old female who presented with shortness of breath/ leg edema/orthopnea times three days. Also, fatigue, loss of appetite and abdominal tenderness. REVIEW OF SYSTEMS: CONSTITUTIONAL: Fatigue. No fever. HEENT: No sinus drainage, no sore throat. RESPIRATORY: Cough. No congestion. CARDIOVASCULAR: CHF symptoms. Shortness of breath. No atypical chest pain for coronary artery disease. No angina. No palpitations. GASTROINTESTINAL: Appetite is not good. No melena or abdominal pain. No GERD. GENITOURINARY: No hematuria, no polyuria. FORENSIC ECONOMIST: Dizziness. No blackout, no headache, no double vision. MUSCULOSKELETAL: Osteoarthritis pain. ENDOCRINE: Weight loss. SKIN: Not dry, no rash. PSYCHIATRIC: Anxious. No depression, no suicidal thoughts, no homicidal thoughts. PAST MEDICAL HISTORY; 1. COPD 2. Gallbladder dysfunction 3. Atrial fibrillation 4. Hypertension 5. Hypothyroidism 6. Aortic stenosis PAST SURGICAL HISTORY: 1. Pacemaker 2. C-spine fracture, neck surgery 3. Hysterectomy 4. Cataract MENSTRUAL HISTORY: Hysterectomy SOCIAL HISTORY: Nonsmoker. . No alcohol use. Five children. Retired. MEDICATIONS: (HOME) 1. Propylthiouracil 50 mg p.o. daily 2. Meclizine (Antivert) 25 mg p.o. t.i.d. p.r.n. 3. Warfarin (Coumadin) 3 mg p.o. daily 4. Omeprazole (Prilosec) 20 mg p.o. q.d. a.c. p.r.n. 5. Ondansetron (Zofran) 4 mg p.o. q.12h p.r.n. 6. Furosemide (Lasix) 40 mg p.o. q.d. a.c. 7. Digoxin (Lanoxin) 125 mcg p.o. daily 8. Clotrimazole/Betamethasone (Lotrisone) one application TP b.i.d. p.r.n. 9. Alprazolam (Xanax) 0.5 mg p.o. b.i.d. p.r.n. 10. Hydrocodone/Acetaminophen one tab p.o. q.i.d p.r.n. 11. Potassium Chloride (Klor-Con) 10 mEq p.o. daily 12. [place] 3 fatty acids/Fish oil two each p.o. b.i.d. 13. Calcium Carbonate (Calcium) 600 mg p.o. daily 14. Propranolol (Inderal) 40 mg p.o. b.i.d. 15. Valsartan (Diovan) 80 mg p.o. daily ALLERGIES: DARVON, CRESTOR, LIPITOR PHYSICAL EXAMINATION: V/S: Pulse 68, BP 122/60, 02 sat 99%. Height 5'1", weight 140.8, BMI 26.6 GENERAL APPEARANCE: Oriented times three. Pallor positive. HEENT: Normal. NECK: 2 cm JVP. No bruits. RESPIRATORY: Lungs have decreased breath sounds with few creps. . CARDIOVASCULAR: S1, S2, no S3. Grade II/ systolic ejection murmur. No cyanosis, clubbing. No ascites. GI/ABDOMEN: No tenderness. Bowel sounds are active. EXTREMITIES: edema, pulses +1, equal. FORENSIC ECONOMIST: Deep tendon reflexes, sensory, motor and gait all normal. RECTAL/PELVIC: Colonoscopy screeing Dr. Up 2004. ASSESSMENT: 1. ACUTE CHF 2. SEVERE AORTIC AND MITRAL STENOSIS/AORTIC VALVE 3. COPD 4. ATRIAL FIBRILLATION 5. PACEMAKER 4. HYPERTENSION 5. C-SPINE 6. DJD 7. HYPOTHYROIDISM PLAN: 1. Admit regular 2. Routine telemetry orders 3. Elevate legs 4. IV Lasix now and q.a.m. 5. ABG refused 6. Oxygen 2L/cannula 7. 1/2 cc Decadron IM and q.a.m. 8. Weigh patient daily 9. Continue all medications except p.o. Lasix 10. Daily INR 11. T4 and TSH TIME SPENT: More than 70 minutes. MTDD
--- NOTE | 2017-03-25 10:57 | PCM.PROG ---
Attending Provider: ATTENDING PROVIDER: Dr. KEVIN DRAKE DATE OF SERVICE: 03/25/17 SUBJECTIVE: This 81 year old WHITE/ F was hospitalized 03/24/17. The patient is seen with Jacinta, Nurse Practitioner. The pateint is alert, lying in bed. She states she slept well. The patient's son is in the room. REVIEW OF SYSTEMS: CONSTITUTIONAL: Weakness. No night sweats. No fever or chills. HEENT: Eyes: No visual changes. No eye pain. No eye discharge. ENT: No runny nose. No epistaxis. No sinus pain. No odynophagia. No congestion. RESPIRATORY: Cough. No congestion. No hemoptysis. CARDIOVASCULAR: No angina symptoms. No CHF symptoms. No atypical chest pain for CAD. No palpitations. No shortness of breath. GASTROINTESTINAL: No abdominal pain. No nausea or vomiting. No diarrhea or constipation. No hematemesis. No hematochezia. GENITOURINARY: No urgency. No frequency. No dysuria. No hematuria. No obstructive symptoms. No discharge. No pain. No significant abnormal bleeding. MUSCULOSKELETAL: No musculoskeletal pain; no joint swelling. NEUROLOGICAL: Awake, alert, oriented to time, place and person. No headache. No neck pain. No syncope. No seizures. No dizziness. PSYCHIATRIC: Not anxious. No depression. No suicidal thoughts. No homicidal thoughts. SKIN: No rash. No lesions. No wounds. ENDOCRINE: No unexplained weight loss. No weight gain. HEMATOLOGIC/LYMPHATIC: No anemia. No purpura. No petechiae. No prolonged or excessive bleeding. No palpable lymph nodes. PHYSICAL EXAMINATION: GENERAL: The patient is awake, alert and oriented, lying flat in bed in no distress. VITAL SIGNS: Temperature 97.3 F, Pulse 60, Respiratory Rate 18, BP 104/52, Pulse Ox 96% HEENT: Head normocephalic, atraumatic. Eyes: Extraocular muscles are intact. Pupils are equal, round and reactive to light and accommodation. Ears: No lesions. Nose appeared normal. Throat: No exudate or erythema. NECK: Supple. No JVD, no carotid bruit. No lymphadenopathy or thyromegaly. LUNGS: Diminished breath sounds bilaterally with crepitations. Clear to auscultation. Percussion note normal. Chest symmetrical. HEART: S1, S2, no S3. Grade II/ systolic murmur. No cyanosis or clubbing. No ascites. Pulses: Dorsalis pedis and posterior tibial pulses +1 to +2 both sides. ABDOMEN: Soft. Non-tender. Bowel sounds active. No CVA tenderness. No mass felt. EXTREMITIES: +1 to +2 edema lower extremities. Full range of motion of all extremities, equal. NEUROLOGIC: No focal deficit. Cranial nerves II through XII are grossly intact. No headache, no double vision or headache. SKIN: Not dry. Intact. Turgor-normal. LYMPHATIC: No palpable lymph nodes/no lymphedema. MUSCULOSKELETAL: Normal joints with no swelling. Muscle tone is normal. LAB REVIEW: 03/25/17 00:40 03/25/17 00:40 03/25/17 00:40: WBC 2.88 L, RBC 3.78 L, Hgb 11.8 L, Hct 33.6 L, MCV 88.9, MCH 31.2 H, MCHC 35.1, RDW Coeff of Megan 13.9, Plt Count 140, Immature Gran % (Auto) 1.0, Neut % (Auto) 81.7, Lymph % (Auto) 14.9, [place] % (Auto) 1.4, Eos % (Auto) 0.3, Baso % (Auto) 0.7, Immature Gran # (Auto) 0.0, Neut # 2.4, Lymph # 0.4 L, [place] # 0.0 L, Eos # 0.0, Baso # 0.0, PT 42.2 H, INR 4.10 H*, Sodium 125 L, Potassium 4.0, Chloride 87 L, Carbon Dioxide 27, Anion Gap 15.0, BUN 16, Creatinine 1.03, Estimated GFR (MDRD) 52.00, BUN/Creatinine Ratio 15.53, Glucose 114, Calcium 9.3, Total Bilirubin 1.49 H, AST 26, ALT 10 L, Alkaline Phosphatase 63, Total Creatine Kinase 31, Myoglobin 48, Troponin I 0.0960, Total Protein 6.2, Albumin 3.2 L, Globulin 3.0, Albumin/Globulin Ratio 1.07 03/24/17 20:15: Urine Color Yellow, Urine Clarity Clear, Urine pH 6.0, Ur Specific [place] 1.010, Urine Protein Trace, Urine Glucose (UA) Negative, Urine Ketones Negative, Urine Blood 1+, Urine Nitrite Negative, Urine Bilirubin Negative, Urine Urobilinogen 0.2, Ur Leukocyte Esterase Negative, Urine Microscopic RBC 5-10, Ur Squamous Epith Cells 5-10 03/24/17 17:16: TSH 2.001 03/24/17 17:14: WBC 4.80, RBC 3.73 L, Hgb 11.6 L, Hct 33.2 L, MCV 89.0, MCH 31.1 H, MCHC 34.9, RDW Coeff of [place] 14.1, Plt Count 160, Immature Gran % (Auto) 0.2, Neut % (Auto) 68.5, Lymph % (Auto) 21.5, [place] % (Auto) 5.6, Eos % (Auto) 4.0, Baso % (Auto) 0.2, Immature Gran # (Auto) 0.0, Neut # 3.3, Lymph # 1.0, [place] # 0.3 L, Eos # 0.2, Baso # 0.0, Sodium 124 L, Potassium 4.2, Chloride 86 L , Carbon Dioxide 28, Anion Gap 14.2, BUN 15, Creatinine 1.17, Estimated GFR ( MDRD) 45.00, BUN/Creatinine Ratio 12.82, Glucose 97, Calcium 9.3, Total Bilirubin 1.67 H, AST 27, ALT 10 L, Alkaline Phosphatase 59, Total Creatine Kinase 29, Myoglobin 51, Troponin I 0.0940, Total Protein 6.1, Albumin 3.3 L, Globulin 2.8, Albumin/Globulin Ratio 1.18 ASSESSMENT: 1. Acute CHF 2. Basilar pneumonia 3. Pulmonary edema PLAN: 1. Rocephin 1 gm q.24 2. Hold Coumadin 3. Daily INR Plan and coordination of the patient's care discussed in the presence of Head Of Strategy and nurse. CONDITION: Stable SCRIBED BY: SHERYL HENSON Crown Assembly Machine Operator scribed while in presence of service performed by Dr. KEVIN DRAKE/JACINTA MARMOLEJO APRN on 03/25/17 ([id number])
[2017-03-25] MEDS: DECADRON 4 MG/ML SDV IM SCH (11:48)
[2017-03-25] MEDS: NORCO 5-325 PO PRN ×2 (13:33→21:22)
[2017-03-25] MEDS ORDERED: COUMADIN PO SCH (17:00)
[2017-03-25] MEDS: XANAX PO PRN (23:07)
[2017-03-26 05:27] LABS: EOSINOPHILS % (AUTO) 0.2 % (0.0-7.0); HEMATOCRIT 31.3 % (37.0-47.0); HEMOGLOBIN 10.9 g/dl (12.0-16.0); IMMATURE GRANULOCYTE % (AUTO) 0.4 % (0.0-5.0); LYMPHOCYTES # (AUTO) 0.8 K/uL (0.60-3.4); LYMPHOCYTES % (AUTO) 17.5 (10.0-50.0); MEAN CORPUSCULAR HEMOGLOBIN 31.4 pg (27.0-31.0); MEAN CORPUSCULAR HGB CONC 34.8 (31.8-35.4); MEAN CORPUSCULAR VOLUME 90.2 fl (81.0-99.0); MONOCYTES # (AUTO) 0.2 K/uL (0.4-2.0); MONOCYTES % (AUTO) 4.7 (0-10); NEUTROPHILS # (AUTO) 3.7 K/ul (2.0-6.9); NEUTROPHILS % (AUTO) 77.2; PLATELET COUNT 128 10^3/uL (140-440); RED BLOOD COUNT 3.47 10^6/ul (4.20-5.40); WHITE BLOOD COUNT 4.73 K/ul (4.6-10.2)
[2017-03-26 05:44] LABS: PROTHROMBIN TIME 44.2 SEC (9.3-11.0)
[2017-03-26 05:49] LABS: ALBUMIN/GLOBULIN RATIO 1.2; ANION GAP 13.5; BILIRUBIN,TOTAL 0.87 mg/dL (0.00-1.20); BUN/CREATININE RATIO 20.4; CALCIUM 9.2 mg/dL (8.2-10.2); CREATININE 0.98 mg/dL (0.60-1.30); POTASSIUM 4.5 mmol/L (3.5-5.10); TOTAL PROTEIN 5.5 g/dL (5.8-8.1)
[2017-03-26] MEDS ORDERED: LASIX IVP STA (08:26)
[2017-03-26] MEDS: ASPIRIN EC PO SCH (09:13)
[2017-03-26] MEDS: MICRO-K CAP PO SCH (09:13)
[2017-03-26] MEDS: LANOXIN PO SCH (09:13)
[2017-03-26] MEDS: DECADRON 4 MG/ML SDV IM SCH (09:14)
[2017-03-26] MEDS: DIOVAN PO SCH (09:14)
[2017-03-26] MEDS: ROCEPHIN 1 GM in SODIUM CHLORIDE 50 ML IV SCH (09:14)
[2017-03-26] MEDS: INDERAL PO SCH ×2 (09:14→20:48)
[2017-03-26] MEDS: PROPYLTHIOURACIL PO SCH (09:14)
[2017-03-26] MEDS: OMEGA-3 FISH OIL PO SCH ×2 (09:14→20:48)
[2017-03-26] MEDS: CALCIUM 500 + VIT D 200 MG TABLET PO SCH (09:14)
--- NOTE | 2017-03-26 10:15 | RS.SLPCNOT ---
Speech Case Note Date of Note: 03/26/17 Title: Speech Consult Note: BREAKFAST HOSTESS communicated with nursing regarding speech consult. No concerns were reported from RN, except the patient consumes medications with applesauce, which was typical prior to admission. BREAKFAST HOSTESS questioned patient about swallowing concerns and hx. Pt reported hx of MBSS which revealed typical swallow function. However pt stated her swallowing has worsened since last MBSS. BREAKFAST HOSTESS recommends to complete a MBSS to determine if structural changes have occured, due to pt's concerns with food sticking in laryngeal/esophageal area. Pt appears to have no difficulty at the bedside. Monitor pt intermittently with PO intake to decrease risk for aspiration. Continue medications in applesauce. ST to follow-up with MBSS on Wednesday03/29/17.
--- NOTE | 2017-03-26 11:12 | PCM.PROG ---
Attending Provider: ATTENDING PROVIDER: Dr. KEVIN DRAKE DATE OF SERVICE: 03/26/17 SUBJECTIVE: This 81 year old WHITE/ F was hospitalized 03/24/17. The patient is seen with Jacinta, Nurse Practitioner. The patient is alert, lying in bed, has been up to the bathroom. Cough is better. She states she ate good yesterday. REVIEW OF SYSTEMS: CONSTITUTIONAL: No night sweats. No fatigue, malaise, lethargy. No fever or chills. HEENT: Eyes: No visual changes. No eye pain. No eye discharge. ENT: No runny nose. No epistaxis. No sinus pain. No odynophagia. No congestion. RESPIRATORY: Cough. No congestion. No hemoptysis. CARDIOVASCULAR: No angina symptoms. No CHF symptoms. No atypical chest pain for CAD. No palpitations. No shortness of breath. GASTROINTESTINAL: No abdominal pain. No nausea or vomiting. No diarrhea or constipation. No hematemesis. No hematochezia. GENITOURINARY: No urgency. No frequency. No dysuria. No hematuria. No obstructive symptoms. No discharge. No pain. No significant abnormal bleeding. MUSCULOSKELETAL: No musculoskeletal pain; no joint swelling. NEUROLOGICAL: Awake, alert, oriented to time, place and person. No headache. No neck pain. No syncope. No seizures. No dizziness. PSYCHIATRIC: Not anxious. No depression. No suicidal thoughts. No homicidal thoughts. SKIN: No rash. No lesions. No wounds. ENDOCRINE: No unexplained weight loss. No weight gain. HEMATOLOGIC/LYMPHATIC: No anemia. No purpura. No petechiae. No prolonged or excessive bleeding. No palpable lymph nodes. PHYSICAL EXAMINATION: GENERAL: The patient is awake, alert and oriented, lying/sitting in bed in no distress. VITAL SIGNS: Temperature 97.6 F, Pulse 60, Respiratory Rate 16, BP 88/51, Pulse Ox 98% HEENT: Head normocephalic, atraumatic. Eyes: Extraocular muscles are intact. Pupils are equal, round and reactive to light and accommodation. Ears: No lesions. Nose appeared normal. Throat: No exudate or erythema. NECK: Supple. No JVD, no carotid bruit. No lymphadenopathy or thyromegaly. LUNGS: Diminished breath sounds bilaterally. Clear to auscultation. Percussion note normal. Chest symmetrical. HEART: S1, S2, no S3. Grade II/ murmur. No cyanosis or clubbing. No ascites. Pulses: Dorsalis pedis and posterior tibial pulses +1 to +2 both sides. ABDOMEN: Soft. Non-tender. Bowel sounds active. No CVA tenderness. No mass felt. EXTREMITIES: Trace edema. Full range of motion of all extremities, equal. NEUROLOGIC: No focal deficit. Cranial nerves II through XII are grossly intact. No headache, no double vision or headache. SKIN: Not dry. Intact. Turgor-normal. LYMPHATIC: No palpable lymph nodes/no lymphedema. MUSCULOSKELETAL: Normal joints with no swelling. Muscle tone is normal. LAB REVIEW: 03/26/17 05:05 03/26/17 05:05 03/26/17 05:05: WBC 4.73, RBC 3.47 L, Hgb 10.9 L, Hct 31.3 L, MCV 90.2, MCH 31.4 H, MCHC 34.8, RDW Coeff of Megan 14.0, Plt Count 128 L, Immature Gran % (Auto ) 0.4, Neut % (Auto) 77.2, Lymph % (Auto) 17.5, [place] % (Auto) 4.7, Eos % (Auto) 0.2, Baso % (Auto) 0.0, Immature Gran # (Auto) 0.0, Neut # 3.7, Lymph # 0.8, [place] # 0.2 L, Eos # 0.0, Baso # 0.0, PT 44.2 H, INR 4.29 H*, Sodium 129 L, Potassium 4.5, Chloride 90 L, Carbon Dioxide 30, Anion Gap 13.5, BUN 20 H, Creatinine 0.98, Estimated GFR (MDRD) 55.00, BUN/Creatinine Ratio 20.40, Glucose 107, Calcium 9.2, Total Bilirubin 0.87, AST 25, ALT 9 L, Alkaline Phosphatase 53, Total Protein 5.5 L, Albumin 3.0 L, Globulin 2.5, Albumin/ Globulin Ratio 1.20 03/25/17 00:45: Digoxin 1.65 ASSESSMENT: 1. Acute CHF 2. Basilar pneumonia 3. Pulmonary edema PLAN: 1. Continue to hold Coumadin 2. Up and about as tolerated 3. Lasix 40 mg IV 4. Keep legs elevated Plan and coordination of the patient's care discussed in the presence of Chief Engineer'S Helper and nurse. CONDITION: Stable SCRIBED BY: SHERYL HENSON Surveillance Sensor Operator scribed while in presence of service performed by Dr. KEVIN DRAKE/JACINTA MARMOLEJO APRN on 03/26/17 ([id number])
[2017-03-26] MEDS: NORCO 5-325 PO PRN (15:02)
[2017-03-26] MEDS: MIRALAX PO SCH (16:02)
[2017-03-26] MEDS: XANAX PO PRN (20:50)
[2017-03-27] MEDS: NORCO 5-325 PO PRN ×3 (00:09→22:59)
[2017-03-27 04:38] LABS: BASOPHILS % (AUTO) 0.2 % (0.0-3.0); EOSINOPHILS % (AUTO) 0.3 % (0.0-7.0); HEMATOCRIT 31.8 % (37.0-47.0); IMMATURE GRANULOCYTE % (AUTO) 0.3 % (0.0-5.0); LYMPHOCYTES % (AUTO) 15.8 (10.0-50.0); MEAN CORPUSCULAR HEMOGLOBIN 31.2 pg (27.0-31.0); MEAN CORPUSCULAR HGB CONC 34.6 (31.8-35.4); MEAN CORPUSCULAR VOLUME 90.1 fl (81.0-99.0); MONOCYTES # (AUTO) 0.5 K/uL (0.4-2.0); MONOCYTES % (AUTO) 7.2 (0-10); NEUTROPHILS # (AUTO) 4.8 K/ul (2.0-6.9); NEUTROPHILS % (AUTO) 76.2; PLATELET COUNT 142 10^3/uL (140-440); RED BLOOD COUNT 3.53 10^6/ul (4.20-5.40); WHITE BLOOD COUNT 6.28 K/ul (4.6-10.2)
[2017-03-27 04:46] LABS: PROTHROMBIN TIME 28.5 SEC (9.3-11.0)
[2017-03-27 05:01] LABS: ALBUMIN 3.1 g/dL (3.4-5.0); ALBUMIN/GLOBULIN RATIO 1.19; BILIRUBIN,TOTAL 0.71 mg/dL (0.00-1.20); CALCIUM 9.4 mg/dL (8.2-10.2); TOTAL PROTEIN 5.7 g/dL (5.8-8.1)
[2017-03-27] MEDS: LASIX IVP SCH (05:54)
[2017-03-27] MEDS: ROCEPHIN 1 GM in SODIUM CHLORIDE 50 ML IV SCH (08:13)
[2017-03-27] MEDS: MICRO-K CAP PO SCH (08:18)
[2017-03-27] MEDS: INDERAL PO SCH ×2 (08:18→20:29)
[2017-03-27] MEDS: DIOVAN PO SCH (08:18)
[2017-03-27] MEDS: MIRALAX PO SCH (08:18)
[2017-03-27] MEDS: OMEGA-3 FISH OIL PO SCH ×2 (08:19→20:29)
[2017-03-27] MEDS: PROPYLTHIOURACIL PO SCH (08:19)
[2017-03-27] MEDS: CALCIUM 500 + VIT D 200 MG TABLET PO SCH (08:19)
[2017-03-27] MEDS: LANOXIN PO SCH (08:19)
[2017-03-27] MEDS: ASPIRIN EC PO SCH (08:20)
[2017-03-27] MEDS: DECADRON 4 MG/ML SDV IM SCH (08:21)
[2017-03-27] MEDS: XANAX PO PRN ×2 (09:07→21:24)
[2017-03-27] MEDS: COUMADIN PO SCH (16:52)
[2017-03-27] MEDS: XANAX PO SCH (21:24)
[2017-03-28 04:13] LABS: EOSINOPHILS % (AUTO) 0.5 % (0.0-7.0); HEMOGLOBIN 10.4 g/dl (12.0-16.0); IMMATURE GRANULOCYTE % (AUTO) 0.3 % (0.0-5.0); LYMPHOCYTES # (AUTO) 0.9 K/uL (0.60-3.4); LYMPHOCYTES % (AUTO) 14.8 (10.0-50.0); MEAN CORPUSCULAR HEMOGLOBIN 30.9 pg (27.0-31.0); MEAN CORPUSCULAR HGB CONC 33.5 (31.8-35.4); MONOCYTES # (AUTO) 0.6 K/uL (0.4-2.0); MONOCYTES % (AUTO) 8.7 (0-10); NEUTROPHILS # (AUTO) 4.8 K/ul (2.0-6.9); NEUTROPHILS % (AUTO) 75.7; PLATELET COUNT 118 10^3/uL (140-440); RED BLOOD COUNT 3.37 10^6/ul (4.20-5.40); WHITE BLOOD COUNT 6.29 K/ul (4.6-10.2)
[2017-03-28 04:23] LABS: PROTHROMBIN TIME 21.5 SEC (9.3-11.0)
[2017-03-28 04:33] LABS: ALBUMIN 2.5 g/dL (3.4-5.0); ALBUMIN/GLOBULIN RATIO 1.39; ANION GAP 10.3; BILIRUBIN,TOTAL 0.51 mg/dL (0.00-1.20); BUN/CREATININE RATIO 30.26; CREATININE 0.76 mg/dL (0.60-1.30); POTASSIUM 4.3 mmol/L (3.5-5.10); TOTAL PROTEIN 4.3 g/dL (5.8-8.1)
[2017-03-28] MEDS: LASIX IVP SCH (06:29)
[2017-03-28] MEDS: MICRO-K CAP PO SCH (09:00)
[2017-03-28] MEDS: OMEGA-3 FISH OIL PO SCH ×2 (09:00→20:13)
[2017-03-28] MEDS: ASPIRIN EC PO SCH (09:00)
[2017-03-28] MEDS: CALCIUM 500 + VIT D 200 MG TABLET PO SCH (09:00)
[2017-03-28] MEDS: DIOVAN PO SCH (09:01)
[2017-03-28] MEDS: LANOXIN PO SCH (09:01)
[2017-03-28] MEDS: MIRALAX PO SCH ×2 (09:02→09:09)
[2017-03-28] MEDS: INDERAL PO SCH ×2 (09:02→20:13)
[2017-03-28] MEDS: ROCEPHIN 1 GM in SODIUM CHLORIDE 50 ML IV SCH (09:02)
[2017-03-28] MEDS: PROPYLTHIOURACIL PO SCH (09:02)
[2017-03-28] MEDS: DECADRON 4 MG/ML SDV IM SCH (09:20)
[2017-03-28] MEDS: NORCO 5-325 PO PRN ×2 (13:25→22:40)
[2017-03-28] MEDS: COUMADIN PO SCH (17:16)
[2017-03-28] MEDS: XANAX PO PRN (21:29)
[2017-03-28] MEDS: XANAX PO SCH (21:29)
[2017-03-29 04:45] LABS: EOSINOPHILS % (AUTO) 0.2 % (0.0-7.0); HEMATOCRIT 32.8 % (37.0-47.0); IMMATURE GRANULOCYTE % (AUTO) 0.3 % (0.0-5.0); MEAN CORPUSCULAR HEMOGLOBIN 30.9 pg (27.0-31.0); MEAN CORPUSCULAR HGB CONC 33.5 (31.8-35.4); MEAN CORPUSCULAR VOLUME 92.1 fl (81.0-99.0); MONOCYTES # (AUTO) 0.5 K/uL (0.4-2.0); NEUTROPHILS # (AUTO) 4.9 K/ul (2.0-6.9); NEUTROPHILS % (AUTO) 75.5; PLATELET COUNT 126 10^3/uL (140-440); RED BLOOD COUNT 3.56 10^6/ul (4.20-5.40); WHITE BLOOD COUNT 6.52 K/ul (4.6-10.2)
[2017-03-29 04:56] LABS: PROTHROMBIN TIME 18.4 SEC (9.3-11.0)
[2017-03-29 05:03] LABS: ALBUMIN 3.1 g/dL (3.4-5.0); ALBUMIN/GLOBULIN RATIO 1.19; ANION GAP 13.4; BILIRUBIN,TOTAL 0.74 mg/dL (0.00-1.20); BUN/CREATININE RATIO 29.47; CALCIUM 9.9 mg/dL (8.2-10.2); CREATININE 0.95 mg/dL (0.60-1.30); POTASSIUM 5.4 mmol/L (3.5-5.10); TOTAL PROTEIN 5.7 g/dL (5.8-8.1)
[2017-03-29] MEDS: LASIX IVP SCH (06:12)
[2017-03-29] MEDS: PROPYLTHIOURACIL PO SCH (08:35)
[2017-03-29] MEDS: DIOVAN PO SCH (08:35)
[2017-03-29] MEDS: ROCEPHIN 1 GM in SODIUM CHLORIDE 50 ML IV SCH (08:35)
[2017-03-29] MEDS: OMEGA-3 FISH OIL PO SCH (08:35)
[2017-03-29] MEDS: INDERAL PO SCH (08:35)
[2017-03-29] MEDS: CALCIUM 500 + VIT D 200 MG TABLET PO SCH (08:35)
[2017-03-29] MEDS: DECADRON 4 MG/ML SDV IM SCH (08:36)
[2017-03-29] MEDS: ASPIRIN EC PO SCH (08:36)
[2017-03-29] MEDS: LANOXIN PO SCH (08:37)
[2017-03-29] MEDS: MIRALAX PO SCH (08:37)
--- NOTE | 2017-03-29 08:52 | PN ---
DATE OF SERVICE: 03/25/17 SUBJECTIVE: The patient is a 81 year old white female admitted with CHF possibility of bronchitis with COPD. The patient has bivalvular severe aortic and mitral stenosis. She is inoperable she doesn't want any further work or investigate or intervention. The patient is DNR. The patient's condition has improved. PHYSICAL EXAMINATION: HEENT: Head normocephalic, atraumatic. Eyes: Extraocular muscles are intact. Pupils are equal, round and reactive to light and accommodation. Ears: No lesions. Nose appeared normal. Throat: No exudate or erythema. NECK: Supple. No JVP, no carotid bruit. No lymphadenopathy or thyromegaly. LUNGS: Decreased breath sounds but clear to auscultation. Percussion note normal. Chest symmetrical. HEART: S1, S2, no S3. Grade III/ systolic murmurs. No cyanosis or clubbing. No ascites. Pulses: Dorsalis pedis and posterior tibial pulses +1 to +2 both sides. ABDOMEN: Soft. Nontender. Bowel sounds active. No CVA tenderness. No mass felt. EXTREMITIES: Leg edema and also edema of the face is much less. Full range of motion of all extremities, equal. NEUROLOGIC: No focal deficit. Cranial nerves II through XII are grossly intact. No headache, no double vision or headache. SKIN: Not dry. Intact. Turgor - normal. LYMPHATIC: No palpable lymph nodes/no lymphedema. MUSCULOSKELETAL: Normal joints with no swelling. Muscle tone is normal. Talked to the son and explained the patient's condition and he is agreeable for patient's comfort measures with treatment of CHF. He is concerned about the patient not being able to take care of herself at home and the time may come when she may have to go to the halfway. The patient was seen and examined with the nurse practitioner. TIME SPENT: More than 30 minutes. Plan and coordination of the patient's care discussed in the presence of nurse. OLLIE
--- NOTE | 2017-03-29 09:28 | PCM.PROG ---
Attending Provider: ATTENDING PROVIDER: Dr. KEVIN DRAKE DATE OF SERVICE: 03/29/17 SUBJECTIVE: This 81 year old WHITE/ F was hospitalized 03/24/17. The patient is seen with Jacinta, Nurse Practitioner. The patient is sitting on the side of the bed. She is alert and states she is ready to go home. REVIEW OF SYSTEMS: CONSTITUTIONAL: Weakness. No night sweats. No fever or chills. HEENT: Eyes: No visual changes. No eye pain. No eye discharge. ENT: No runny nose. No epistaxis. No sinus pain. No odynophagia. No congestion. RESPIRATORY: No cough, no congestion. No hemoptysis. CARDIOVASCULAR: No angina symptoms. No CHF symptoms. No atypical chest pain for CAD. No palpitations. No shortness of breath. GASTROINTESTINAL: No abdominal pain. No nausea or vomiting. No diarrhea or constipation. No hematemesis. No hematochezia. GENITOURINARY: No urgency. No frequency. No dysuria. No hematuria. No obstructive symptoms. No discharge. No pain. No significant abnormal bleeding. MUSCULOSKELETAL: No musculoskeletal pain; no joint swelling. NEUROLOGICAL: Awake, alert, oriented to time, place and person. No headache. No neck pain. No syncope. No seizures. No dizziness. PSYCHIATRIC: Not anxious. No depression. No suicidal thoughts. No homicidal thoughts. SKIN: No rash. No lesions. No wounds. ENDOCRINE: No unexplained weight loss. No weight gain. HEMATOLOGIC/LYMPHATIC: No anemia. No purpura. No petechiae. No prolonged or excessive bleeding. No palpable lymph nodes. PHYSICAL EXAMINATION: GENERAL: The patient is awake, alert and oriented, sitting in bed in no distress. VITAL SIGNS: Temperature 97.1 F, Pulse 60, Respiratory Rate 20, BP 102/60, Pulse Ox 94% HEENT: Head normocephalic, atraumatic. Eyes: Extraocular muscles are intact. Pupils are equal, round and reactive to light and accommodation. Ears: No lesions. Nose appeared normal. Throat: No exudate or erythema. NECK: Supple. No JVD, no carotid bruit. No lymphadenopathy or thyromegaly. LUNGS: Clear to auscultation. Percussion note normal. Chest symmetrical. HEART: S1, S2, no S3. Grade II/ systolic ejection murmur. No cyanosis or clubbing. No ascites. Pulses: Dorsalis pedis and posterior tibial pulses +1 to +2 both sides. ABDOMEN: Soft. Non-tender. Bowel sounds active. No CVA tenderness. No mass felt. EXTREMITIES: No edema. Full range of motion of all extremities, equal. NEUROLOGIC: No focal deficit. Cranial nerves II through XII are grossly intact. No headache, no double vision or headache. SKIN: Not dry. Intact. Turgor-normal. LYMPHATIC: No palpable lymph nodes/no lymphedema. MUSCULOSKELETAL: Normal joints with no swelling. Muscle tone is normal. LAB REVIEW: 03/29/17 04:42 03/29/17 04:42 03/29/17 04:42: WBC 6.52, RBC 3.56 L, Hgb 11.0 L, Hct 32.8 L, MCV 92.1, MCH 30.9 , MCHC 33.5, RDW Coeff of Megan 14.1, Plt Count 126 L, Immature Gran % (Auto) 0.3 , Neut % (Auto) 75.5, Lymph % (Auto) 16.0, [place] % (Auto) 8.0, Eos % (Auto) 0.2, Baso % (Auto) 0.0, Immature Gran # (Auto) 0.0, Neut # 4.9, Lymph # 1.0, [place] # 0.5, Eos # 0.0, Baso # 0.0, PT 18.4 H, INR 1.79, Sodium 132 L, Potassium 5.4 H, Chloride 91 L, Carbon Dioxide 33 H, Anion Gap 13.4, BUN 28 H, Creatinine 0.95, Estimated GFR (MDRD) 57.00, BUN/Creatinine Ratio 29.47, Glucose 101, Calcium 9.9 , Total Bilirubin 0.74, AST 32, ALT 15, Alkaline Phosphatase 51 L, Total Protein 5.7 L, Albumin 3.1 L, Globulin 2.6, Albumin/Globulin Ratio 1.19 ASSESSMENT: 1. Acute CHF 2. Basilar pneumonia 3. Pulmonary edema, resolved PLAN: 1. Discharge home 2. Keflex 500 mg t.i.d. for 5 days 3. Prednisone 10 mg daily for 5 days 4. Hold potassium for 2 days 5. Resume Lasix 40 b.i.d. 6. Coumadin 2 mg daily 7. Determine oxygen needs and discussed with the patient the possible need and compliance, she voices understanding and is agreeable. 8. Low salt diet discussed 9. Followup this week in office on Plan and coordination of the patient's care discussed in the presence of Harbor Police Launch Commander and nurse. CONDITION: Stable SCRIBED BY: SHERYL HENSON Ginner Helper scribed while in presence of service performed by Dr. KEVIN DRAKE/JACINTA MRAMOLEJO APRN on 03/29/17 ([id number])
[2017-03-29] MEDS: XANAX PO PRN (09:33)
--- NOTE | 2017-03-29 09:49 | PN ---
DATE OF SERVICE: 03/26/17 SUBJECTIVE: The patient is a 81 year old white hospitalized with fluid retention and CHF. She has severe bivalvular aortic and mitral valve stenosis inoperable. The patient's edema much less and she is breathing a lot better. INR is 4.2 so we will hold Coumadin. The patient was seen and examined with Nurse Practitioner and Registrar Assistant. PHYSICAL EXAMINATION: VITAL SIGNS: Systolic blood pressure is close to 90. HEENT: Head normocephalic, atraumatic. Eyes: Extraocular muscles are intact. Pupils are equal, round and reactive to light and accommodation. Ears: No lesions. Nose appeared normal. Throat: No exudate or erythema. NECK: Supple. No JVD, no carotid bruit. No lymphadenopathy or thyromegaly. LUNGS: Decreased breath sounds but clear to auscultation. Percussion note normal. Chest symmetrical. HEART: S1, S2, no S3. Grade III/ systolic murmurs. No cyanosis or clubbing. No ascites. Pulses: Dorsalis pedis and posterior tibial pulses +1 to +2 both sides. ABDOMEN: Soft. Nontender. Bowel sounds active. No CVA tenderness. No mass felt. EXTREMITIES: No edema. Full range of motion of all extremities, equal. NEUROLOGIC: No focal deficit. Cranial nerves II through XII are grossly intact. No headache, no double vision or headache. SKIN: Not dry. Intact. Turgor - normal. LYMPHATIC: No palpable lymph nodes/no lymphedema. MUSCULOSKELETAL: Normal joints with no swelling. Muscle tone is normal. ASSESSMENT: 1. CHF, fluid retention seems to be resolving slowly The patient wants DNR, comfort measures. She is feeling somewhat better. PLAN: 1. Increased the Xanax because of anxiety TIME SPENT: More than 30 minutes. Plan and coordination of the patient's care discussed in the presence of nurse. OLLIE
[2017-03-29 09:54] VITALS: BP 100/53; TEMP 97
--- NOTE | 2017-03-29 11:45 | PN ---
DATE OF SERVICE: 03/27/17 SUBJECTIVE: The patient is a 81 year old white female hospitalized with CHF with fluid retention. The patient also had pneumonia with evidence of mild cough but no fever or chills. The patient has been treated with IV antibiotics and IV Lasix. The patient's condition has improved and her edema is much less. The patient has a lot of anxiety and she has been given 0.25mg Xanax. REVIEW OF SYSTEMS: CONSTITUTIONAL: No night sweats. No fatigue, malaise, lethargy. No fever or chills. HEENT: Eyes: No visual changes. No eye pain. No eye discharge. ENT: No runny nose. No epistaxis. No sinus pain. No sore throat. No odynophagia. No congestion. RESPIRATORY: No cough, no congestion. No hemoptysis. CARDIOVASCULAR: No angina symptoms. No CHF symptoms. No atypical chest pain for CAD. No palpitations. No shortness of breath with exertion and at rest she has no PND, no orthopnea and no palpation. GASTROINTESTINAL: No abdominal pain. No nausea or vomiting. No diarrhea or constipation. No hematemesis. No hematochezia. GENITOURINARY: No urgency. No frequency. No dysuria. No hematuria. No obstructive symptoms. No discharge. No pain. No significant abnormal bleeding. MUSCULOSKELETAL: No musculoskeletal pain; no joint swelling. NEUROLOGICAL: No headache. No neck pain. No syncope. No seizures. No dizziness. PSYCHIATRIC: Not anxious. No depression. No suicidal thoughts. No homicidal thoughts. SKIN: No rash. No lesions. No wounds. ENDOCRINE: No unexplained weight loss. No weight gain. HEMATOLOGIC/LYMPHATIC: No anemia. No purpura. No petechiae. No prolonged or excessive bleeding. No palpable lymph nodes. PHYSICAL EXAMINATION: GENERAL: The patient is oriented to time, place and person and looks somewhat pale. VITAL SIGNS: Temperature 97.7, pulse 60, respiratory rate 16, blood pressure 109/59 and pulse ox 98%. HEENT: Head normocephalic, atraumatic. Eyes: Extraocular muscles are intact. Pupils are equal, round and reactive to light and accommodation. Ears: No lesions. Nose appeared normal. Throat: No exudate or erythema. NECK: Supple. No JVD, no carotid bruit. No lymphadenopathy or thyromegaly. LUNGS: Decreased breath sounds with few creps. Percussion note normal. Chest symmetrical. HEART: S1, S2, no S3. Grade III/ systolic murmurs. No cyanosis or clubbing. No ascites. Pulses: Dorsalis pedis and posterior tibial pulses +1 to +2 both sides. ABDOMEN: Soft. Nontender. Bowel sounds active. No CVA tenderness. No mass felt. EXTREMITIES: +1 pitting edema. Full range of motion of all extremities, equal. NEUROLOGIC: No focal deficit. Cranial nerves II through XII are grossly intact. No headache, no double vision or headache. SKIN: Not dry. Intact. Turgor - normal. LYMPHATIC: No palpable lymph nodes/no lymphedema. MUSCULOSKELETAL: Normal joints with no swelling. Muscle tone is normal. LABS: Hgb 11, hct 31, WBC 6,200 normal differential, creatinine 1, BUN 24, potassium 5 ASSESSMENT: 1. Fluid retention status seems to be better 2. CHF under control 3. Severe mitral and aortic stenosis 4. Pacemaker 5. Anemia 6. Hyponatremia from chronic CHF PLAN: 1. Continue same care. CONDITION: STABLE PROGNOSIS: POOR The patient doesn't want any resistive efforts and she wants DNR. She doesn't want any further work up or referral for valvular problem. She was seen by Dr. Hall Valvular surgeon and he told her that she isn't a surgical candidate. TIME SPENT: More than 30 minutes. Plan and coordination of the patient's care discussed in the presence of nurse. OLLIE
--- NOTE | 2017-03-29 12:56 | PN ---
DATE OF SERVICE: 03/28/17 SUBJECTIVE: The patient is a 81 year old white female hospitalized with fluid retention, CHF and possibility of pneumonia. The patient's condition has steadily improved and her leg swelling and facial swelling as gone down. She is feeling better and her appetite has improved. REVIEW OF SYSTEMS: CONSTITUTIONAL: No night sweats. No fatigue, malaise, lethargy. No fever or chills. HEENT: Eyes: No visual changes. No eye pain. No eye discharge. ENT: No runny nose. No epistaxis. No sinus pain. No sore throat. No odynophagia. No congestion. RESPIRATORY: No cough, no congestion. No hemoptysis. CARDIOVASCULAR: No angina symptoms. No CHF symptoms. No atypical chest pain for CAD. No palpitations. No shortness of breath. GASTROINTESTINAL: No abdominal pain. No nausea or vomiting. No diarrhea or constipation. No hematemesis. No hematochezia. GENITOURINARY: No urgency. No frequency. No dysuria. No hematuria. No obstructive symptoms. No discharge. No pain. No significant abnormal bleeding. MUSCULOSKELETAL: No musculoskeletal pain; no joint swelling. NEUROLOGICAL: No headache. No neck pain. No syncope. No seizures. No dizziness. PSYCHIATRIC: Not anxious. No depression. No suicidal thoughts. No homicidal thoughts. SKIN: No rash. No lesions. No wounds. ENDOCRINE: No unexplained weight loss. No weight gain. HEMATOLOGIC/LYMPHATIC: No anemia. No purpura. No petechiae. No prolonged or excessive bleeding. No palpable lymph nodes. PHYSICAL EXAMINATION: VITAL SIGNS: Temperature 97, pulse 60, respiratory rate 20, blood pressure 95/ 56 and pulse ox 98%. HEENT: Head normocephalic, atraumatic. Eyes: Extraocular muscles are intact. Pupils are equal, round and reactive to light and accommodation. Ears: No lesions. Nose appeared normal. Throat: No exudate or erythema. NECK: Supple. No JVD, no carotid bruit. No lymphadenopathy or thyromegaly. LUNGS: Decreased breath sounds but clear to auscultation. Percussion note normal. Chest symmetrical. HEART: S1, S2, no S3. Grade II to III/ systolic murmurs. No cyanosis or clubbing. No ascites. Pulses: Dorsalis pedis and posterior tibial pulses +1 to +2 both sides. ABDOMEN: Soft. Nontender. Bowel sounds active. No CVA tenderness. No mass felt. EXTREMITIES: No edema. Full range of motion of all extremities, equal. NEUROLOGIC: No focal deficit. Cranial nerves II through XII are grossly intact. No headache, no double vision or headache. SKIN: Not dry. Intact. Turgor - normal. LYMPHATIC: No palpable lymph nodes/no lymphedema. MUSCULOSKELETAL: Normal joints with no swelling. Muscle tone is normal. LABS: Hgb 10.4, hct 31, WBC 6,200 normal differential, creatinine 0.7, BUN 23, potassium 4.3. ASSESSMENT: 1. Fluid retention 2. CHF seems to be resolving 3. Pneumonia, possibility, resolving 4. Mitral and aortic stenosis, moderate to severe PLAN: 1. Continue Antibiotics 2. Continue IV Lasix 3. Elevate legs CONDITION: Stable PROGNOSIS: Poor TIME SPENT: More than 30 minutes. Plan and coordination of the patient's care discussed in the presence of nurse. OLLIE
--- NOTE | 2017-03-29 15:31 | CM.DICTOOL ---
ADMISSION: 03/24/17 15:40 DISCHARGE: 03/29/17 DATE OF SERVICE: 03/29/17 FINAL DIAGNOSIS ACUTE ON CHRONIC CHF BASILAR PNEUMONIA PULMONARY EDEMA COPD CHRONIC LEG EDEMA SEVERE AORTIC STENOSIS MODERATE MITRAL STENOSIS ATRIAL FIBRILLATION HYPOTENSION HYPOTHYROIDISM H-PYLORI POSITIVE, 06/11 PACEMAKER INSERTION LAST VITALS Temp Pulse Resp BP Pulse Ox 97.1 F L 61 20 102/60 94 L 03/29/17 05:03 03/29/17 08:37 03/29/17 05:03 03/29/17 05:03 03/29/17 05:03 ACTIVE MEDICATIONS Acetaminophen/Hydrocodone Bitart ([place] 5-325) 1 tab PO QID PRN PRN Reason: MODERATE PAIN Last Admin: 03/28/17 22:40 Dose: 1 tab Alprazolam (Xanax) 0.5 mg PO BID PRN PRN Reason: anxiety Last Admin: 03/28/17 21:29 Dose: 0.5 mg Calcium/Vitamin D (Calcium 500 + Vit D 200 Mg Tablet) 1 each PO DAILY COUNT INCLUDES THE [facility] Last Admin: 03/29/17 08:35 Dose: 1 each Clotrimazole (Lotrisone 15 Gm) 1 applic TP BID PRN PRN Reason: itching/rash Digoxin (Lanoxin) 125 mcg PO DAILY COUNT INCLUDES THE [facility] Last Admin: 03/29/17 08:37 Dose: 125 mcg Fish Oil ([place]-3 Fish Oil) 2,000 mg PO BID COUNT INCLUDES THE [facility] Last Admin: 03/29/17 08:35 Dose: 2,000 mg Furosemide (Lasix) 40 mg PO QDAC COUNT INCLUDES THE [facility] Last Admin: 03/29/17 06:12 Dose: 40 mg Meclizine HCl (Antivert) 25 mg PO TID PRN PRN Reason: Dizziness Last Admin: 03/25/17 16:52 Dose: 25 mg Omeprazole (Prilosec) 20 mg PO QDAC PRN PRN Reason: Heartburn Ondansetron HCl (Zofran Tab) 4 mg PO Q12H PRN PRN Reason: Nausea / Vomiting Last Admin: 03/28/17 20:13 Dose: 4 mg Potassium Chloride (Micro-K Cap) 10 meq PO DAILY COUNT INCLUDES THE [facility] Last Admin: 03/28/17 09:00 Dose: 10 meq Propranolol HCl (Inderal) 40 mg PO BID COUNT INCLUDES THE [facility] Last Admin: 03/29/17 08:35 Dose: 40 mg Propylthiouracil (Propylthiouracil) 50 mg PO DAILY COUNT INCLUDES THE [facility] Last Admin: 03/29/17 08:35 Dose: 50 mg Valsartan (Diovan) 80 mg PO DAILY COUNT INCLUDES THE [facility] Last Admin: 03/29/17 08:35 Dose: 80 mg Warfarin Sodium (Coumadin) 2 mg PO QPM COUNT INCLUDES THE [facility] (NEW LOWER DOSE) Last Admin: 03/28/17 17:16 Dose: 2 mg ALLERGIES ciprofloxacin [From Cipro] Adverse Reaction (Verified 11/09/16 22:13) ciprofloxacin HCl [From Cipro] Adverse Reaction (Verified 11/09/16 22:13) propoxyphene HCl [From Darvon] Adverse Reaction (Verified 11/09/16 22:13) NEW PRESCRIPTIONS: HOLD YOUR POTASSIUM TOMORROW ONLY PLEASE NOTE THE REDUCTION IN YOUR COUMADIN FROM 3 MG TO 2 MG EVERY EVENING NEW PRESCRIPTIONS: KEFLEX 500 MG, TAKE ONE CAPSULE BY MOUTH EVERY 8 HOURS FOR 5 DAYS PREDNISONE 10 MG, TAKE ONE TABLET BY MOUTH WITH FOOD DAILY FOR 5 DAYS COUMADIN 2 MG, TAKE ONE TABLET BY MOUTH EVERY EVENING AT 5 P.M. SMOKING: NONSMOKER DISEASE SPECIFIC EDUCATION: EDEMA FEET/LEG ELEVATION LOW SODIUM DIET HOME MEDICATIONS NEW PRESCRIPTIONS CONGESTIVE HEART FAILURE BRONCHITIS OXYGEN LAB REVIEW: 03/29/17 04:42 03/29/17 04:42 03/29/17 04:42: WBC 6.52, RBC 3.56 L, Hgb 11.0 L, Hct 32.8 L, MCV 92.1, MCH 30.9 , MCHC 33.5, RDW Coeff of Megan 14.1, Plt Count 126 L, Immature Gran % (Auto) 0.3 , Neut % (Auto) 75.5, Lymph % (Auto) 16.0, [place] % (Auto) 8.0, Eos % (Auto) 0.2, Baso % (Auto) 0.0, Immature Gran # (Auto) 0.0, Neut # 4.9, Lymph # 1.0, [place] # 0.5, Eos # 0.0, Baso # 0.0, PT 18.4 H, INR 1.79, Sodium 132 L, Potassium 5.4 H, Chloride 91 L, Carbon Dioxide 33 H, Anion Gap 13.4, BUN 28 H, Creatinine 0.95, Estimated GFR (MDRD) 57.00, BUN/Creatinine Ratio 29.47, Glucose 101, Calcium 9.9 , Total Bilirubin 0.74, AST 32, ALT 15, Alkaline Phosphatase 51 L, Total Protein 5.7 L, Albumin 3.1 L, Globulin 2.6, Albumin/Globulin Ratio 1.19 PLAN: DISCHARGE HOME TODAY RETURN TO THE OFFICE TO SEE DR. DRAKE ON 04/01/17 AT 1 PM [facility] WILL BE CONTACTING YOU TO SET UP AN EVALUATION TO DETERMINE IF YOU NEED INCREASED HOMEMAKING SERVICE HOURS RESUME YOUR HOME MEDICATIONS PER LIST PROVIDED BY THE NURSING STAFF HOLD YOUR POTASSIUM TOMORROW ONLY PLEASE NOTE THE REDUCTION IN YOUR COUMADIN FROM 3 MG TO 2 MG EVERY EVENING NEW PRESCRIPTIONS: KEFLEX 500 MG, TAKE ONE CAPSULE BY MOUTH EVERY 8 HOURS FOR 5 DAYS PREDNISONE 10 MG, TAKE ONE TABLET BY MOUTH WITH FOOD DAILY FOR 5 DAYS COUMADIN 2 MG, TAKE ONE TABLET BY MOUTH EVERY EVENING AT 5 P.M. ACTIVITY: GET PLENTY OF REST AT HOME. GRADUALLY INCREASE YOUR ACTIVITY LEVEL ACCORDING TO YOUR TOLERATION. KEEP YOUR FEET AND LEGS ELEVATED WHEN SITTING AND LYING IN BED DIET: LOW SODIUM SUMMARY: THE PATIENT IS ALERT AND ORIENTED X3. SHE CURRENTLY RESIDES AT HOME ALONE. HER SON IS VERY SUPPORTIVE OF HER NEEDS. SHE HAS HOME OXYGEN FOR NIGHT USE FROM [facility] IN [place], [place]. SHE HAS LIFELINE AND HOMEMAKING SERVICES PROVIDED BY [facility] THROUGH [facility]. WE HAVE REQUESTED MORE HOMEMAKING SERVICE HOURS FOLLOWING THIS DISCHARGE. THE PATIENT ALSO UTILIZES A CANE TO ASSIST WITH AMBULATION. SHE DESIRES TO RETURN TO HER HOME AT DISCHARGE. THE SWELLING IN THE LOWER EXTREMITIES IS COMPLETELY RESOLVED. WRINKLED SKIN IS PRESENT EVIDENCE OF THE RESOLUTION. THE PATIENT TELLS US SHE IS FEELING MUCH BETTER. WE HAVE DISCUSSED, AT LENGTH, ADHERENCE TO A LOW SODIUM DIET AND ALTERNATIVES TO SOME OF HER FAVORITE FOODS THAT ARE LOW SODIUM. WE HAVE ALSO ENCOURAGED STRONGLY THAT MS. LICONA KEEP HER FEET/LEGS ELEVATED OFTEN POSSIBLE TO DIMINISH EDEMA THAT MAY RETURN. HOME MEDICATIONS AND DOSING HAS BEEN DISCUSSED WITH HER WELL. SHE IS AWARE AND AGREEABLE FOR DISCHARGE PLANS FOR TODAY. CODE STATUS AT DISCHARGE: FULL CODE CARLEE MARMOLEJO APRN KEVIN DRAKE M.D.
--- NOTE | 2017-03-30 09:59 | PN ---
DATE OF SERVICE: 03/29/17 SUBJECTIVE: The patient is a 81 year old white female hospitalized with acute fluid retention with early CHF and possibility of bronchitis/pneumonitis. The patient was treated with IV antibiotics, steroids and IV Lasix. The patient's condition has improved and her swelling practically gone except for +1 to trace edema noted in lower extremities. 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 The patient was seen and examined with the Nurse Practitioner and director building. PHYSICAL EXAMINATION: GENERAL: The patient is VITAL SIGNS: HEENT: Head normocephalic, atraumatic. Eyes: Extraocular muscles are intact. Pupils are equal, round and reactive to light and accommodation. Ears: No lesions. Nose appeared normal. Throat: No exudate or erythema. NECK: Supple. No JVD, no carotid bruit. No lymphadenopathy or thyromegaly. LUNGS: Decreased breath sounds with few crepitations on the right base otherwise better air entry. Percussion note normal. Chest symmetrical. HEART: S1, S2, no S3. Grade III/ systolic murmurs. No cyanosis or clubbing. No ascites. Pulses: Dorsalis pedis and posterior tibial pulses +1 to +2 both sides. ABDOMEN: Soft. Nontender. Bowel sounds active. No CVA tenderness. No mass felt. EXTREMITIES: No edema. Full range of motion of all extremities, equal. NEUROLOGIC: No focal deficit. Cranial nerves II through XII are grossly intact. No headache, no double vision or headache. SKIN: Not dry. Intact. Turgor - normal. LYMPHATIC: No palpable lymph nodes/no lymphedema. MUSCULOSKELETAL: Normal joints with no swelling. Muscle tone is normal. LABS: Hgb 11, hct 32, WBC 6,500 normal differential, creatinine 0.9, BUN 28, INR 1.79. CONDITION: STABLE PLAN: 1. The patient will be discharged home 2. The patient will resume Lasix 40mg twice a day TIME SPENT: More than 30 minutes. Plan and coordination of the patient's care discussed in the presence of nurse. OLLIE
--- NOTE | 2017-03-30 10:18 | PN ---
03/24/17: Level 5 03/25/17: Intermediate 03/26/17: Intermediate 03/27/17: Intermediate 03/28/17: Brief 03/29/17: D as in discharge MTDD
--- NOTE | 2017-03-30 11:20 | DS ---
DATE OF SERVICE: 03/29/17 FINAL DIAGNOSIS: 1. Acute on chronic CHF 2. Basilar pneumonia 3. Pulmonary edema 4. COPD 5. Chronic leg edema 6. Severe Aortic Stenosis 7. Moderate mitral stenosis 8. Atrial fibrillation 9. Hypotension 10. Hypothyroidism 11. H.Pylori positive, 06/11 12. Pacemaker insertion LAST VITALS: Temperature 97.1, pulse 61, respiratory rate 20, blood pressure 102/60 and pulse ox 94%. DISCHARGE INSTRUCTIONS: Discharge the patient home today. Return to the office to see Dr. Villagran on 04/01/17 at 1pm. [facility] will be contacting to set up an evaluation to determine need of increased homemaker service hours. Resume home medications per list provided by the nursing staff. MEDICATIONS AT DISCHARGE: [place] 5-325 PO four times a day PRN Xanax 0.5mg PO twice a day PRN Calcium 500+Vit D 200mg PO daily Lotrisone 15grm one application TP twice a day PRN Lanoxin 125mcg PO daily [place] -3 fish oil 2,000mg PO twice a day Lasix 40mg PO QDAC Antivert 25mg PO three times a day PRN Prilosec 20mg PO QDAC Zofran 4mg PO Q 12 hours PRN Micro-K cap 10meq PO daily Inderal 40mg PO twice a day Propylthiouracil 50mg PO daily Diovan 80mg PO daily Coumadin 2mg PO QPM ALLERGIES: Ciprofloxacin Ciprofloxacin HCLL Propoxyphene HCL NEW PRESCRIPTIONS: [place] potassium tomorrow only Keflex 500mg take one capsule PO every 8 hours for five days Prednisone 10mg take one PO with food daily for 5 days Coumadin 2mg take one PO every evening at 5pm DIET INSTRUCTIONS: Low sodium. ACTIVITY: Get plenty of rest at home. Gradually increase activity level according to toleration. Keep feet and legs elevated when sitting and lying in bed SMOKING: Nonsmoker DISEASE SPECIFIC EDUCATION: Edema Feet/leg elevation Low sodium diet Home medications New prescriptions Congestive heart failure Bronchitis Oxygen HOSPITAL COURSE: The patient is a 81 year old female who presented to the office on 03/24/17 with complaining of shortness of breath, worsening leg edema and she stated that she has been unable to lay flat and sleep for the past three days. She had gained some weight, no appetite, feeling full and felt like her face was swollen. Her lung sounds she had crepitations at the bases and she was pale. The patient was subsequently admitted for acute CHF with severe aortic and mitral stenosis. She has a history of COPD, Atrial fibrillation and pacemaker. She was placed on routine telemetry orders and instructed to lay in bed with her legs elevated. She was given 40mg IV Lasix. Oxygen as tolerated. The patient declined ABG's. Upon admission it was found that her INR was elevated at 4.6 and she is on Coumadin for her atrial fibrillation. Her Coumadin was then held until Wednesday. She was restated on Coumadin 2mg daily. Today her INR is 1.79 and she started the Coumadin 2mg on Wednesday so we will recheck her INR in the office on . At that time of admission her blood pressure was low 88/50 and she was requiring oxygen sats only 96% with oxygen at 2 liters. Chest x-ray on admission showed pulmonary edema with possible bibasilar pneumonia. She was placed on IV Rocephin as well as Decadron 2mg daily. All of her home medications were continued. The patient remained afebrile during her hospital stay. Again she declined ABG's. Labs remained stable during the course of her stay. She started eating better again on Wednesday and ate about 50-75% of her meals. Today on the day of discharge her labs are steady with BUN at 28, creatinine 0.95, sodium 132, potassium 5.4, hgb 11, hct 32.8, WBC 6.5, INR 1.79. Vital signs today on discharge; temperature 97.1, pulse 60, respirations 20, blood pressure 102/60 and pulse ox 94% on room air and not requiring any oxygen. She stated that she had not been having to wearing oxygen for the past two days except at night. Her cough and appetite have both improved. Again she is able to sleep flat and her legs swelling has decreased to none on the day of discharge. Her facial swelling has improved and she has had good urinary output. She has been up and about on her own with the assistance of a walker. Today her potassium was elevated at 5.4 and she does take out additional potassium daily and we will tell her to hold the potassium for the next two days. She is to resume her Lasix 40mg by mouth twice a day and then patient can add one additional Lasix as needed for worsening leg swelling. We will discharge her home on Keflex 500mg three times a day for the next five days and this will total a ten day course as well as Prednisone 10mg PO daily for the next five days. We will see her back in the office on and we will recheck her INR on . She is to continue with 2mg of Coumadin daily instead of 3mg. CHF was discussed in detail regarding a low salt diet, elevating the legs, foods that her high in salt content. We will see her in the office as this patient has significantly improved since admission. She is instructed to continue with all of these medications. She is discharged in stable condition. TIME SPENT: More than 60 minutes. OLLIE
== END 2017-03-29 11:24 | disposition home health service (06) | DRG 291 ==
LOC: MEDSURG B 15:40
PROVIDERS: ADMIT Internal Medicine; ATTEND Internal Medicine
DX: I50.9 Heart failure, unspecified (principal); J18.9 Pneumonia, unspecified organism; I08.0 Rheumatic disorders of both mitral and aortic valves; J44.9 Chronic obstructive pulmonary disease, unspecified; R60.0 Localized edema; I48.91 Unspecified atrial fibrillation; I95.9 Hypotension, unspecified; D64.9 Anemia, unspecified; E03.9 Hypothyroidism, unspecified; F41.9 Anxiety disorder, unspecified; Z95.0 Presence of cardiac pacemaker; Z79.01 Long term (current) use of anticoagulants; Z79.899 Other long term (current) drug therapy
CPT/HCPCS: 36415; 80053; 80162; 81001; 82550; 83874; 84436; 84443; 84484; 85025; 85610; 93005; 93010; 94761; 97802; 99223; 99232; 99239

== ENCOUNTER 2017-04-01 01:10 | Outpatient (CLI) | END 2017-04-01 01:11 | disposition home or self-care (01) | LOC: AMBL 01:10 | PROVIDERS: ATTEND Emergency Medicine | DX: Z04.3 Encounter for examination and observation following other accident (principal); W08.XXXA Fall from other furniture, initial encounter ==

== ENCOUNTER 2017-04-21 11:44 | Inpatient (IN) ==
[2017-04-21] MEDS ORDERED: NITROSTAT SL PRN (12:39)
[2017-04-21] MEDS ORDERED: VISTARIL INJ IM PRN (12:39)
[2017-04-21] MEDS ORDERED: ATROPINE SULFATE PFS IVP PRN (12:39)
[2017-04-21] MEDS ORDERED: TYLENOL PO PRN (12:39)
[2017-04-21] MEDS ORDERED: MORPHINE 4 MG/ML SYRINGE IVP PRN (12:39)
[2017-04-21] MEDS ORDERED: DECADRON 4 MG/ML SDV IM STA (12:42)
[2017-04-21] MEDS ORDERED: LASIX IVP STA (12:42)
[2017-04-21] MEDS ORDERED: ZAROXOLYN PO STA (12:47)
[2017-04-21 13:02] VITALS: BMI 12.8
[2017-04-21 13:06] LABS: BASOPHILS % (AUTO) 0.6 % (0.0-3.0); EOSINOPHILS # (AUTO) 0.2 K/ul (0.0-0.7); EOSINOPHILS % (AUTO) 3.6 % (0.0-7.0); HEMATOCRIT 35.5 % (37.0-47.0); HEMOGLOBIN 11.9 g/dl (12.0-16.0); IMMATURE GRANULOCYTE % (AUTO) 0.2 % (0.0-5.0); LYMPHOCYTES # (AUTO) 1.1 K/uL (0.60-3.4); LYMPHOCYTES % (AUTO) 20.4 (10.0-50.0); MEAN CORPUSCULAR HEMOGLOBIN 30.6 pg (27.0-31.0); MEAN CORPUSCULAR HGB CONC 33.5 (31.8-35.4); MEAN CORPUSCULAR VOLUME 91.3 fl (81.0-99.0); MONOCYTES # (AUTO) 0.3 K/uL (0.4-2.0); MONOCYTES % (AUTO) 6.3 (0-10); NEUTROPHILS # (AUTO) 3.6 K/ul (2.0-6.9); NEUTROPHILS % (AUTO) 68.9; PLATELET COUNT 123 10^3/uL (140-440); RED BLOOD COUNT 3.89 10^6/ul (4.20-5.40); WHITE BLOOD COUNT 5.24 K/ul (4.6-10.2)
[2017-04-21] MEDS ORDERED: PRILOSEC PO PRN (13:10)
[2017-04-21] MEDS ORDERED: ANTIVERT PO PRN (13:10)
[2017-04-21] MEDS ORDERED: NON-FORMULARY MEDICATION (Omega-3 Fatty Acids/Fish Oil [Fish Oil 1,000 Mg Capsule] 2 EACH) PO SCH ×22 (13:15)
[2017-04-21] MEDS ORDERED: NON-FORMULARY MEDICATION (Potassium Chloride [Klor-Con 10] 10 MEQ) PO SCH ×22 (13:15)
[2017-04-21] MEDS ORDERED: VALSARTAN 80 MG PO SCH (13:15)
[2017-04-21 13:17] LABS: PROTHROMBIN TIME 17.1 SEC (9.3-11.0)
[2017-04-21] MEDS ORDERED: MICRO-K CAP PO SCH (13:30)
[2017-04-21] MEDS ORDERED: LANOXIN PO SCH (13:30)
[2017-04-21 13:51] LABS: ALBUMIN 3.6 g/dL (3.4-5.0); ALBUMIN/GLOBULIN RATIO 1.33; BILIRUBIN,TOTAL 2.09 mg/dL (0.00-1.20); BUN/CREATININE RATIO 21.37; CALCIUM 10.2 mg/dL (8.2-10.2); CREATININE 1.31 mg/dL (0.60-1.30); TOTAL PROTEIN 6.3 g/dL (5.8-8.1); TROPONIN I 0.346 ng/ml (0.0000-0.4000)
[2017-04-21 14:05] LABS: DIGOXIN 2.28 ng/mL (1.00-2.00)
--- NOTE | 2017-04-21 15:01 | DI ---
EXAM: PA and lateral views of the chest HISTORY: Congestive heart failure and pulmonary edema COMPARISON: Chest x-ray 03/24/2017 FINDINGS: The cardiomediastinal silhouette is unchanged and enlarged with atherosclerotic disease a nd stable lead wires. There is no pneumothorax with bilateral blunting the costophrenic angles. Th ere is right greater than left hazy ground-glass in the lung bases. There is mild pulmonary vascula r congestion. Mitral valve calcifications are unchanged The osseous structures demonstrate degenera tive disease. IMPRESSION: 1. Questionable pleural effusions with bibasilar ground-glass that may represent atelectasis versus pneumonia. 2. Cardiomegaly with pulmonary vascular indistinctness suggestive of mild pulmonary edema.
[2017-04-21] MEDS: XANAX PO PRN (15:43)
[2017-04-21] MEDS: PROPYLTHIOURACIL PO SCH (15:43)
[2017-04-21] MEDS: OMEGA-3 FISH OIL PO SCH ×2 (15:43→20:55)
[2017-04-21] MEDS: DIOVAN PO SCH (15:44)
[2017-04-21] MEDS: INDERAL PO SCH ×2 (15:44→20:55)
[2017-04-21] MEDS: MICRO-K CAP PO SCH (15:44)
[2017-04-21 16:31] LABS: BILIRUBIN,URINE Negative (NEGATIVE); KETONES,URINE Negative (NEGATIVE); LEUKOCYTE ESTERASE ,URINE Negative (NEGATIVE); NITRITE,URINE Negative (NEGATIVE); PROTEIN,URINE 1+ (NEGATIVE); URINE, BLOOD Trace-intact (NEGATIVE)
[2017-04-21 16:32] LABS: ADD URINE MICROSCOPIC YES
[2017-04-21] MEDS: COUMADIN PO SCH (16:36)
[2017-04-21 21:09] LABS: TROPONIN I 0.359 ng/ml (0.0000-0.4000)
[2017-04-21] MEDS: NORCO 5-325 PO PRN (22:07)
[2017-04-22 05:07] LABS: PROTHROMBIN TIME 17.3 SEC (9.3-11.0)
[2017-04-22] MEDS: LASIX IVP SCH (06:11)
[2017-04-22] MEDS: ASPIRIN EC PO SCH (07:54)
[2017-04-22] MEDS: MICRO-K CAP PO SCH (07:55)
[2017-04-22] MEDS: ZAROXOLYN PO SCH (09:12)
[2017-04-22] MEDS: INDERAL PO SCH ×2 (09:12→20:50)
[2017-04-22] MEDS: DIOVAN PO SCH (09:12)
[2017-04-22] MEDS: PROPYLTHIOURACIL PO SCH (09:13)
[2017-04-22] MEDS: DECADRON 4 MG/ML SDV IM SCH (09:14)
[2017-04-22] MEDS: OMEGA-3 FISH OIL PO SCH ×2 (09:15→20:49)
--- NOTE | 2017-04-22 09:25 | HP ---
DATE OF SERVICE: 04/21/17 REASON FOR HOSPITALIZATION: Shortness of breath, fatigue, leg edema with oozing from the left leg. HISTORY OF PRESENT ILLNESS: The patient is a 81 year old white female was seen the day before yesterday in the office with leg edema. She was given Zaroxolyn along with her Lasix dose. According to the son who is present with her said that she did not take the Zaroxolyn on the day when she was given. The leg edema has worsened with more shortness of breath. She is oozing from the left leg or part of it. The patient has history of bivalvular stenosis involving aortic and mitral valve. The patient was seen by Valvular specialist Dr. Hall who said that she is not surgical candidate because of her two valve problems and overall medical condition. The patient does not want anything to be done anyway. Last time during the hospital stay which was a week ago. The patient was advised to go to the [facility] where she could be taken care of with her medications, diet etc. but she is very stubborn and independent. She lives by herself with practically no help. REVIEW OF SYSTEMS: CONSTITUTIONAL: No night sweats. No malaise, lethargy. No fever or chills. Fatigue. HEENT: Eyes: No visual changes. No eye pain. No eye discharge. ENT: No runny nose. No epistaxis. No sinus pain. No sore throat. No odynophagia. No ear pain. No congestion. RESPIRATORY: No cough, no congestion. No hemoptysis. Shortness of breath. CARDIOVASCULAR: No angina symptoms. No CHF symptoms. No atypical chest pain for CAD. No palpitations. Orthopnea. GASTROINTESTINAL: No abdominal pain. No nausea or vomiting. No diarrhea or constipation. No hematemesis. No hematochezia. No melena. GENITOURINARY: No urgency. No frequency. No dysuria. No hematuria. No obstructive symptoms. No discharge. No pain. No significant abnormal bleeding. MUSCULOSKELETAL: No musculoskeletal pain. No joint swelling. Arthritic pain as usual. NEUROLOGICAL: No headache. No neck pain. No syncope. No seizures. No dizziness. PSYCHIATRIC: Anxious. No depression. No suicidal thoughts. No homicidal thoughts. SKIN: No rash. No lesions. No wounds. Dry. ENDOCRINE: No unexplained weight loss. No weight gain. HEMATOLOGIC/LYMPHATIC: No anemia. No purpura. No petechiae. No prolonged or excessive bleeding. No palpable lymph nodes. PERSONAL/FAMILY/SOCIAL HISTORY: The patient is living by herself, . Non-smoker and no alcohol abuse. She does all activity of daily living. 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 Lasix 40mg Po daily Zofran 4mg PRN Propranolol 20mg two tablets twice a day Diovan 18mg one a day Xanax 0.5mg twice a day PRN Propylthiouracil 50mg Po daily Fish oil Calcium ALLERGIES: Ciprofloxacin Ciprofloxacin HCL Propoxyphene HCL PHYSICAL EXAMINATION: GENERAL: The patient is oriented to time, place and person. Looks pale. VITAL SIGNS: Temperature 98.8, pulse 76, respiratory rate 15, blood pressure 112/60; 5'0 145 pounds. HEENT: Head normocephalic, atraumatic. Eyes: Extraocular muscles are intact. Pupils are equal, round and reactive to light and accommodation. Ears: No lesions. Nose appeared normal. Throat: No exudate or erythema. NECK: Supple. JVP 2cm, no carotid bruit. No lymphadenopathy or thyromegaly. LUNGS: Decreased breath sounds with few creps at the basis. Clear to auscultation. Percussion note normal. Chest symmetrical. HEART: S1, S2, no S3. Grade II to III/Vi systolic ejection murmur. No cyanosis or clubbing. No ascites. Pulses: Dorsalis pedis and posterior tibial pulses +1 bilaterally. ABDOMEN: Soft. Nontender. Bowel sounds active. No CVA tenderness. No mass felt. EXTREMITIES: +3 pitting edema; left lower end has excoriated area with mild oozing of water from it. Full range of motion of all extremities, equal. NEUROLOGIC: No focal deficit. Cranial nerves II through XII are grossly intact. No headache, no double vision or headache. SKIN: Dry. Intact. Turgor - normal. LYMPHATIC: No palpable lymph nodes/no lymphedema. MUSCULOSKELETAL: Normal joints with no swelling. Muscle tone is normal. LABS: Creatinine 1.3, BUN 28, T4 TSH 1.3 and 1.2 which is normal, Digoxin level was 2.2 high so she was taken off Digoxin. The liver profile is negative, sodium and potassium normal. Chest x-ray showed atelectasis and early pulmonary edema with cardiomegaly. ProTime 17.1, INR 1.7, Hgb 11.9, hct 35, WBC 5,200 normal differential. ASSESSMENT: 1. CHF/EDEMA 2. AORTIC STENOSIS 3. SEVERE STENOSIS/MITRAL 4. COPD/ ATRIAL FIBRILLATION 5. HYPERTENSION 6. C-SPINE 7. DJD 8. HYPOTHYROIDISM 9. PACEMAKER 10.MOD-SEVERE MS/ PLAN: 1. ADMIT 2. ROUTINE TELEMETRY ORDERS 3. ELEVATE LEGS 4. LASIX 40MG IV NOW AND QAM 5. 1/2CC DECADRON IM TODAY AND DAILY AM 6. DAILY WEIGH HER 7. LANOXIN LEVEL TODAY 8. T4 TSH 9. DAILY INR 10.CONTINUE ALL MEDICATIONS EXCEPT PO LASIX 11. ZAROXOLYN 25MG PO DAILY AND ONE TODAY 12. NO ABGS The patient is DNR. She doesn't want anything to be done except for treatment of leg edema and CHF. The patient agreed to consider custodial placement. She is going to think about it. TIME SPENT: More than 70 minutes. MTDD
[2017-04-22] MEDS: XANAX PO PRN ×2 (09:54→21:59)
[2017-04-22] MEDS: NORCO 5-325 PO PRN ×2 (14:02→21:02)
[2017-04-22] MEDS: ZOFRAN TAB PO PRN (14:02)
[2017-04-22] MEDS: COUMADIN PO SCH (16:31)
[2017-04-22] MEDS ORDERED: CITRATE OF MAGNESIA PO STA (18:36)
[2017-04-23 05:12] LABS: PROTHROMBIN TIME 22.5 SEC (9.3-11.0)
[2017-04-23] MEDS: LASIX IVP SCH (05:42)
[2017-04-23] MEDS: DIOVAN PO SCH (08:51)
[2017-04-23] MEDS: INDERAL PO SCH ×2 (08:51→20:43)
[2017-04-23] MEDS: ZAROXOLYN PO SCH (08:51)
[2017-04-23] MEDS: MICRO-K CAP PO SCH (08:51)
[2017-04-23] MEDS: PROPYLTHIOURACIL PO SCH (08:51)
[2017-04-23] MEDS: OMEGA-3 FISH OIL PO SCH ×2 (08:51→20:43)
[2017-04-23] MEDS: DECADRON 4 MG/ML SDV IM SCH (08:52)
[2017-04-23] MEDS: ASPIRIN EC PO SCH (08:54)
--- NOTE | 2017-04-23 09:49 | PN ---
DATE OF SERVICE: 04/22/17 SUBJECTIVE: The patient is a 81 year old white male female hospitalized with CHF and edema. The edema was +3 pitting weeping excoriated area noted on the left leg on admission. The patient is feeling a lot better. Her voice is much better. Her leg swelling and face edema is much improved. REVIEW OF SYSTEMS: CONSTITUTIONAL: No night sweats. No fatigue, malaise, lethargy. No fever or chills. HEENT: Eyes: No visual changes. No eye pain. No eye discharge. ENT: No runny nose. No epistaxis. No sinus pain. No sore throat. No odynophagia. No congestion. RESPIRATORY: No cough, no congestion. No hemoptysis. No shortness of breath. CARDIOVASCULAR: No angina symptoms. No CHF symptoms. No atypical chest pain for CAD. No palpitations. No orthopnea. No PND. GASTROINTESTINAL: No abdominal pain. No nausea or vomiting. No diarrhea or constipation. No hematemesis. No hematochezia. Appetite has improved. GENITOURINARY: No urgency. No frequency. No dysuria. No hematuria. No obstructive symptoms. No discharge. No pain. No significant abnormal bleeding. MUSCULOSKELETAL: No musculoskeletal pain; no joint swelling. NEUROLOGICAL: No headache. No neck pain. No syncope. No seizures. No dizziness. PSYCHIATRIC: Not anxious. No depression. No suicidal thoughts. No homicidal thoughts. SKIN: No rash. No lesions. No wounds. ENDOCRINE: No unexplained weight loss. No weight gain. HEMATOLOGIC/LYMPHATIC: No anemia. No purpura. No petechiae. No prolonged or excessive bleeding. No palpable lymph nodes. PHYSICAL EXAMINATION: VITAL SIGNS: Temperature 97, pulse 60, respiratory rate 17, blood pressure 100/ 58 and pulse ox 97%. HEENT: Head normocephalic, atraumatic. Eyes: Extraocular muscles are intact. Pupils are equal, round and reactive to light and accommodation. Ears: No lesions. Nose appeared normal. Throat: No exudate or erythema. NECK: Supple. No JVD, no carotid bruit. No lymphadenopathy or thyromegaly. LUNGS: Decreased breath sounds but clear to auscultation. Percussion note normal. Chest symmetrical. HEART: S1, S2, no S3. Grade III/Vi systolic murmurs. No cyanosis or clubbing. No ascites. Pulses: Dorsalis pedis and posterior tibial pulses +1 to +2 both sides. ABDOMEN: Soft. Nontender. Bowel sounds active. No CVA tenderness. No mass felt. EXTREMITIES: +3 pitting edema. Full range of motion of all extremities, equal. NEUROLOGIC: No focal deficit. Cranial nerves II through XII are grossly intact. No headache, no double vision or headache. SKIN: Not dry. Intact. Turgor - normal. LYMPHATIC: No palpable lymph nodes/no lymphedema. MUSCULOSKELETAL: Normal joints with no swelling. Muscle tone is normal. LABS: Hgb 11.9, hct 35, WBC 5,200 normal differential, these labs were done on . ASSESSMENT: 1. CHF seems to be under control, leg edema is much less no symptoms of CHF for now 2. Severe aortic stenosis 3. Severe mitral stenosis 4. Pacemaker 5. Atrial fibrillation PLAN: 1. Continue IV Lasix 2. Continue Zaroxolyn 3. Elevate the legs 4. Again advised to the patient to go to the Nurse Home where she is taken care of and get a lot of help. The patient lives by herself and take care of herself properly. PROGNOSIS: Poor anyway and she knows that and she doesn't want to be resuscitated. TIME SPENT: More than 30 minutes. Plan and coordination of the patient's care discussed in the presence of nurse. OLLIE
[2017-04-23] MEDS: BACTROBAN TP SCH ×2 (10:49→20:43)
--- NOTE | 2017-04-23 11:08 | PCM.PROG ---
Attending Provider: ATTENDING PROVIDER: Dr. KEVIN DRAKE DATE OF SERVICE: 04/23/17 SUBJECTIVE: This 81 year old WHITE/ F was hospitalized 04/21/17. The patient is seen with Jacinta, Nurse Practitioner. The patient is alert, lying in bed. The patient states she does not want to go to the group home. REVIEW OF SYSTEMS: CONSTITUTIONAL: Weakness. No night sweats. No fever or chills. HEENT: Eyes: No visual changes. No eye pain. No eye discharge. ENT: No runny nose. No epistaxis. No sinus pain. No odynophagia. No congestion. RESPIRATORY: Cough. No congestion. No hemoptysis. Shortness of breath improved. CARDIOVASCULAR: No angina symptoms. No CHF symptoms. No atypical chest pain for CAD. No palpitations. No orthopnea.. GASTROINTESTINAL: No abdominal pain. No nausea or vomiting. No diarrhea or constipation. No hematemesis. No hematochezia. GENITOURINARY: No urgency. No frequency. No dysuria. No hematuria. No obstructive symptoms. No discharge. No pain. No significant abnormal bleeding. MUSCULOSKELETAL: No musculoskeletal pain; no joint swelling. NEUROLOGICAL: Awake, alert, oriented to time, place and person. No headache. No neck pain. No syncope. No seizures. No dizziness. PSYCHIATRIC: Not anxious. No depression. No suicidal thoughts. No homicidal thoughts. SKIN: Superficial wound left lower extremity. ENDOCRINE: No unexplained weight loss. No weight gain. HEMATOLOGIC/LYMPHATIC: No anemia. No purpura. No petechiae. No prolonged or excessive bleeding. No palpable lymph nodes. PHYSICAL EXAMINATION: GENERAL: The patient is awake, alert and oriented, lying in bed in no distress. VITAL SIGNS: Temperature 96.9 F, Pulse 60, Respiratory Rate 18, BP 93/60, Pulse Ox 98% HEENT: Head normocephalic, atraumatic. Eyes: Extraocular muscles are intact. Pupils are equal, round and reactive to light and accommodation. Ears: No lesions. Nose appeared normal. Throat: No exudate or erythema. NECK: Supple. No JVD, no carotid bruit. No lymphadenopathy or thyromegaly. LUNGS: Diminished breath sounds. Clear to auscultation. Percussion note normal. Chest symmetrical. HEART: S1, S2, no S3. Grade II/ systolic murmur. No cyanosis or clubbing. No ascites. Pulses: Dorsalis pedis and posterior tibial pulses +1 to +2 both sides. ABDOMEN: Soft. Non-tender. Bowel sounds active. No CVA tenderness. No mass felt. EXTREMITIES: 1+ pitting edema, bilateral lower extremities. Full range of motion of all extremities, equal. NEUROLOGIC: No focal deficit. Cranial nerves II through XII are grossly intact. No headache, no double vision or headache. SKIN: Reddened area unchanged. No worsening erythema, no drainage. LYMPHATIC: No palpable lymph nodes/no lymphedema. MUSCULOSKELETAL: Normal joints with no swelling. Muscle tone is normal. LAB REVIEW: 04/21/17 12:55 04/21/17 12:55 04/23/17 04:30: PT 22.5 H D, INR 2.26 ASSESSMENT: 1. CHF/EDEMA 2. AORTIC STENOSIS 3. WOUND LEFT LOWER EXTREMITY, POSITIVE MRSA SUPERFICIAL 4. SEVERE STENOSIS/MITRAL 5. COPD/ ATRIAL FIBRILLATION 6. HYPERTENSION 7. C-SPINE 8. DJD 9. HYPOTHYROIDISM 10. PACEMAKER 11 .MOD-SEVERE MS/ PLAN: 1. Continue to elevate legs. 2. Repeat Digoxin level 3. Apply Bactroban b.i.d. Plan and coordination of the patient's care discussed in the presence of Structural Iron Erector and nurse. CONDITION: Stable SCRIBED BY: Jalen DAUGHERTY scribed while in presence of service performed by Dr. KEVIN DRAKE/JACINTA MARMOLEJO APRN on 04/23/17 ([id number])
[2017-04-23] MEDS: NORCO 5-325 PO PRN ×2 (13:19→22:02)
[2017-04-23] MEDS: XANAX PO PRN ×2 (14:22→22:02)
[2017-04-23] MEDS: COUMADIN PO SCH (16:29)
[2017-04-24 04:44] LABS: BASOPHILS % (AUTO) 0.2 % (0.0-3.0); EOSINOPHILS % (AUTO) 0.5 % (0.0-7.0); HEMATOCRIT 34.3 % (37.0-47.0); HEMOGLOBIN 11.2 g/dl (12.0-16.0); IMMATURE GRANULOCYTE % (AUTO) 0.3 % (0.0-5.0); LYMPHOCYTES # (AUTO) 0.9 K/uL (0.60-3.4); LYMPHOCYTES % (AUTO) 14.3 (10.0-50.0); MEAN CORPUSCULAR HEMOGLOBIN 30.3 pg (27.0-31.0); MEAN CORPUSCULAR HGB CONC 32.7 (31.8-35.4); MEAN CORPUSCULAR VOLUME 92.7 fl (81.0-99.0); MONOCYTES # (AUTO) 0.4 K/uL (0.4-2.0); MONOCYTES % (AUTO) 7.1 (0-10); NEUTROPHILS # (AUTO) 4.8 K/ul (2.0-6.9); NEUTROPHILS % (AUTO) 77.6; PLATELET COUNT 109 10^3/uL (140-440); WHITE BLOOD COUNT 6.17 K/ul (4.6-10.2)
[2017-04-24] MEDS: LASIX IVP SCH (05:50)
[2017-04-24] MEDS: DIOVAN PO SCH (08:51)
[2017-04-24] MEDS: MICRO-K CAP PO SCH (08:51)
[2017-04-24] MEDS: BACTROBAN TP SCH ×2 (08:51→20:54)
[2017-04-24] MEDS: OMEGA-3 FISH OIL PO SCH ×3 (08:51→20:55)
[2017-04-24] MEDS: PROPYLTHIOURACIL PO SCH (08:51)
[2017-04-24] MEDS: ASPIRIN EC PO SCH (08:51)
[2017-04-24] MEDS: ZAROXOLYN PO SCH (08:51)
[2017-04-24] MEDS: INDERAL PO SCH ×2 (08:52→20:54)
[2017-04-24] MEDS: DECADRON 4 MG/ML SDV IM SCH (08:52)
[2017-04-24] MEDS: NORCO 5-325 PO PRN ×2 (14:38→21:13)
[2017-04-24] MEDS: XANAX PO PRN ×2 (14:38→22:28)
[2017-04-24] MEDS: COUMADIN PO SCH (17:50)
[2017-04-25 04:54] LABS: BASOPHILS % (AUTO) 0.3 % (0.0-3.0); EOSINOPHILS # (AUTO) 0.1 K/ul (0.0-0.7); EOSINOPHILS % (AUTO) 1.3 % (0.0-7.0); HEMATOCRIT 36.7 % (37.0-47.0); HEMOGLOBIN 11.8 g/dl (12.0-16.0); IMMATURE GRANULOCYTE % (AUTO) 0.4 % (0.0-5.0); LYMPHOCYTES # (AUTO) 1.2 K/uL (0.60-3.4); LYMPHOCYTES % (AUTO) 15.7 (10.0-50.0); MEAN CORPUSCULAR HEMOGLOBIN 29.8 pg (27.0-31.0); MEAN CORPUSCULAR HGB CONC 32.2 (31.8-35.4); MEAN CORPUSCULAR VOLUME 92.7 fl (81.0-99.0); MONOCYTES # (AUTO) 0.6 K/uL (0.4-2.0); MONOCYTES % (AUTO) 7.3 (0-10); NEUTROPHILS # (AUTO) 5.9 K/ul (2.0-6.9); PLATELET COUNT 148 10^3/uL (140-440); RED BLOOD COUNT 3.96 10^6/ul (4.20-5.40); WHITE BLOOD COUNT 7.85 K/ul (4.6-10.2)
[2017-04-25 05:06] LABS: PROTHROMBIN TIME 25.6 SEC (9.3-11.0)
[2017-04-25] MEDS: ZOFRAN TAB PO PRN (06:22)
[2017-04-25] MEDS: LASIX IVP SCH (06:22)
[2017-04-25] MEDS: INDERAL PO SCH ×2 (08:34→20:45)
[2017-04-25] MEDS: OMEGA-3 FISH OIL PO SCH ×3 (08:34→20:47)
[2017-04-25] MEDS: PROPYLTHIOURACIL PO SCH (08:34)
[2017-04-25] MEDS: ASPIRIN EC PO SCH (08:34)
[2017-04-25] MEDS: ZAROXOLYN PO SCH (08:35)
[2017-04-25] MEDS: DECADRON 4 MG/ML SDV IM SCH (08:35)
[2017-04-25] MEDS: MICRO-K CAP PO SCH (08:35)
[2017-04-25] MEDS: BACTROBAN TP SCH ×2 (08:37→20:46)
[2017-04-25] MEDS: DIOVAN PO SCH (08:37)
[2017-04-25] MEDS: NORCO 5-325 PO PRN ×2 (13:07→21:30)
[2017-04-25] MEDS: COUMADIN PO SCH (17:48)
[2017-04-25] MEDS: XANAX PO PRN (20:45)
[2017-04-26 05:25] LABS: EOSINOPHILS % (AUTO) 0.2 % (0.0-7.0); HEMATOCRIT 34.8 % (37.0-47.0); HEMOGLOBIN 11.4 g/dl (12.0-16.0); IMMATURE GRANULOCYTE % (AUTO) 0.5 % (0.0-5.0); LYMPHOCYTES % (AUTO) 14.7 (10.0-50.0); MEAN CORPUSCULAR HEMOGLOBIN 30.2 pg (27.0-31.0); MEAN CORPUSCULAR HGB CONC 32.8 (31.8-35.4); MEAN CORPUSCULAR VOLUME 92.1 fl (81.0-99.0); MONOCYTES # (AUTO) 0.5 K/uL (0.4-2.0); MONOCYTES % (AUTO) 6.9 (0-10); NEUTROPHILS # (AUTO) 5.1 K/ul (2.0-6.9); NEUTROPHILS % (AUTO) 77.7; PLATELET COUNT 120 10^3/uL (140-440); RED BLOOD COUNT 3.78 10^6/ul (4.20-5.40); WHITE BLOOD COUNT 6.52 K/ul (4.6-10.2)
[2017-04-26 05:36] LABS: PROTHROMBIN TIME 21.8 SEC (9.3-11.0)
[2017-04-26] MEDS: LASIX IVP SCH (05:39)
[2017-04-26] MEDS: DECADRON 4 MG/ML SDV IM SCH (08:42)
[2017-04-26] MEDS: ZAROXOLYN PO SCH (08:43)
[2017-04-26] MEDS: XANAX PO PRN (08:43)
[2017-04-26] MEDS: DIOVAN PO SCH (08:43)
[2017-04-26] MEDS: MICRO-K CAP PO SCH (08:43)
[2017-04-26] MEDS: PROPYLTHIOURACIL PO SCH (08:43)
[2017-04-26] MEDS: ASPIRIN EC PO SCH (08:43)
[2017-04-26] MEDS: OMEGA-3 FISH OIL PO SCH (08:44)
[2017-04-26] MEDS: NORCO 5-325 PO PRN (08:44)
[2017-04-26] MEDS: INDERAL PO SCH (08:44)
[2017-04-26] MEDS: BACTROBAN TP SCH (08:46)
--- NOTE | 2017-04-26 09:18 | PCM.PROG ---
Attending Provider: ATTENDING PROVIDER: Dr. KEVIN DRAKE DATE OF SERVICE: 04/26/17 SUBJECTIVE: This 81 year old WHITE/ F was hospitalized 04/21/17. The patient is seen with Jacinta, Nurse Practitioner. The patient is sitting up in bed, ready to go home today. She states she is going to do better about elevating her legs at home. REVIEW OF SYSTEMS: CONSTITUTIONAL: Weakness. No night sweats. No fever or chills. HEENT: Eyes: No visual changes. No eye pain. No eye discharge. ENT: No runny nose. No epistaxis. No sinus pain. No odynophagia. No congestion. RESPIRATORY: No cough, no congestion. No hemoptysis. No shortness of breath. CARDIOVASCULAR: No angina symptoms. No CHF symptoms. No atypical chest pain for CAD. No palpitations. No orthopnea.. GASTROINTESTINAL: No abdominal pain. No nausea or vomiting. No diarrhea or constipation. No hematemesis. No hematochezia. GENITOURINARY: No urgency. No frequency. No dysuria. No hematuria. No obstructive symptoms. No discharge. No pain. No significant abnormal bleeding. MUSCULOSKELETAL: No musculoskeletal pain; no joint swelling. NEUROLOGICAL: Awake, alert, oriented to time, place and person. No headache. No neck pain. No syncope. No seizures. No dizziness. PSYCHIATRIC: Not anxious. No depression. No suicidal thoughts. No homicidal thoughts. SKIN: Light superficial redness anterior aspect left lower extremity, improving. Localized erythema. ENDOCRINE: No unexplained weight loss. No weight gain. HEMATOLOGIC/LYMPHATIC: No anemia. No purpura. No petechiae. No prolonged or excessive bleeding. No palpable lymph nodes. PHYSICAL EXAMINATION: GENERAL: The patient is awake, alert and oriented, lying in bed in no distress. VITAL SIGNS: Temperature 97.0 F, Pulse 60, Respiratory Rate 17, BP 108/59, Pulse Ox 99% HEENT: Head normocephalic, atraumatic. Eyes: Extraocular muscles are intact. Pupils are equal, round and reactive to light and accommodation. Ears: No lesions. Nose appeared normal. Throat: No exudate or erythema. NECK: Supple. No JVD, no carotid bruit. No lymphadenopathy or thyromegaly. LUNGS: Clear and equal but diminished. Percussion note normal. Chest symmetrical. HEART: S1, S2, no S3. Grade II/ systolic murmur. No cyanosis or clubbing. No ascites. Pulses: Dorsalis pedis and posterior tibial pulses +1 to +2 both sides. ABDOMEN: Soft. Non-tender. Bowel sounds active. No CVA tenderness. No mass felt. EXTREMITIES: +1 bilateral lower extremity edema. Full range of motion of all extremities, equal. NEUROLOGIC: No focal deficit. Cranial nerves II through XII are grossly intact. No headache, no double vision or headache. SKIN: Warm and dry. Intact. Turgor-normal. Light superficial redness anterior aspect left lower extremity improving with erytema, which is localized. LYMPHATIC: No palpable lymph nodes/no lymphedema. MUSCULOSKELETAL: Normal joints with no swelling. Muscle tone is normal. LAB REVIEW: 04/26/17 05:02 04/21/17 12:55 04/26/17 05:02: WBC 6.52, RBC 3.78 L, Hgb 11.4 L, Hct 34.8 L, MCV 92.1, MCH 30.2 , MCHC 32.8, RDW Coeff of Megan 15.1 H, Plt Count 120 L, Immature Gran % (Auto) 0.5, Neut % (Auto) 77.7, Lymph % (Auto) 14.7, [place] % (Auto) 6.9, Eos % (Auto) 0.2, Baso % (Auto) 0.0, Immature Gran # (Auto) 0.0, Neut # 5.1, Lymph # 1.0, [place] # 0.5, Eos # 0.0, Baso # 0.0, PT 21.8 H, INR 2.19 ASSESSMENT: 1. CHF/EDEMA IMPROVING 2. AORTIC STENOSIS 3. WOUND LEFT LOWER EXTREMITY, POSITIVE MRSA SUPERFICIAL 4. SEVERE STENOSIS/MITRAL 5. COPD/ ATRIAL FIBRILLATION 6. HYPERTENSION 7. C-SPINE 8. DJD 9. HYPOTHYROIDISM 10. PACEMAKER 11 .MOD-SEVERE MS/ PLAN: 1. D/C home today. 2. Continue Lasix as before, twice a day and if leg swelling take three. 3. Encouraged to walk and when sitting elevate legs. 4. Prednisone 10 mg once a day for 3 days. 5. Low sodium diet discussed. 6. Bactroban at home twice a day to affected area. Plan and coordination of the patient's care discussed in the presence of Facilities Engineer and nurse. EDUCATION: Discussed with the patient CHF and its' complications and low sodium diet. CONDITION: Stable SCRIBED BY: SHERYL HENSON Teacher Dancing scribed while in presence of service performed by Dr. KEVIN DRAKE/JACINTA MARMOLEJO APRN on 04/26/17 ([id number])
[2017-04-26 09:45] LABS: ALBUMIN 3.3 g/dL (3.4-5.0); ALBUMIN/GLOBULIN RATIO 1.27; CALCIUM 9.3 mg/dL (8.2-10.2); POTASSIUM 4.9 mmol/L (3.5-5.10); TOTAL PROTEIN 5.9 g/dL (5.8-8.1)
[2017-04-26 09:46] LABS: ANION GAP 13.9; BILIRUBIN,TOTAL 0.95 mg/dL (0.00-1.20); BUN/CREATININE RATIO 31.57; CREATININE 1.33 mg/dL (0.60-1.30)
[2017-04-26 11:08] VITALS: BP 105/57; TEMP 97.7
--- NOTE | 2017-04-26 11:33 | PN ---
DATE OF SERVICE: 04/23/17 SUBJECTIVE: 81-year-old female hospitalized with congestive heart failure and fluid retention. The patient's fluid retention is resolving with 1+ pitting edema still left. Her breathing is a lot better. The facial edema has subsided. The patient now doesn't want to go to the halfway; strongly advised to do that so she will be taken of properly. If she goes home she will come back with the same problem. She has not been able to carry on her activity of daily living with her medical problems. She knows about it. She is oriented to time, place and person. PHYSICAL EXAMINATION: HEENT: Head normocephalic, atraumatic. Eyes: Extraocular muscles are intact. Pupils are equal, round and reactive to light and accommodation. Ears: No lesions. Nose appeared normal. Throat: No exudate or erythema. NECK: Supple. No JVD, no carotid bruit. No lymphadenopathy or thyromegaly. LUNGS: Decreased breath sounds but clear to auscultation. Percussion note normal. Chest symmetrical. HEART: S1, S2, Grade III/ systolic murmur as before. No cyanosis or clubbing. No ascites. Pulses: Dorsalis pedis and posterior tibial pulses +1 to +2 both sides. ABDOMEN: Soft. Nontender. Bowel sounds active. No CVA tenderness. No mass felt. EXTREMITIES: No edema. Full range of motion of all extremities, equal. NEUROLOGIC: No focal deficit. Cranial nerves II through XII are grossly intact. No headache, no double vision or headache. SKIN: Not dry. Intact. Turgor - normal. LYMPHATIC: No palpable lymph nodes/no lymphedema. MUSCULOSKELETAL: Normal joints with no swelling. Muscle tone is normal. ASSESSMENT: 1. CHF HAS BEEN RESOLVING CLINICALLY PLAN: 1. Continue IV Lasix, Zaroxolyn 2. Elevate the legs EDUCATION: Education about CHF was carried out. The patient was seen and examined in presence of case maker and nurse practitioner. TIME SPENT: More than 30 minutes. Plan and coordination of the patient's care discussed in the presence of nurse. OLLIE
--- NOTE | 2017-04-26 13:08 | PN ---
DATE OF SERVICE: 04/24/17 SUBJECTIVE: 81-year-old white female hospitalized with CHF, generalized edema. The patient' s condition has improved. The edema of the face and limbs is much less than before. No symptoms of CHF. REVIEW OF SYSTEMS: CONSTITUTIONAL: No night sweats. No fatigue, malaise, lethargy. No fever or chills. HEENT: Eyes: No visual changes. No eye pain. No eye discharge. ENT: No runny nose. No epistaxis. No sinus pain. No sore throat. No odynophagia. No congestion. RESPIRATORY: No cough, no congestion. No hemoptysis. No shortness of breath. CARDIOVASCULAR: No angina symptoms. No CHF symptoms. No atypical chest pain for CAD. No palpitations. No orthopnea. GASTROINTESTINAL: Appetite has been improving. No abdominal pain. No nausea or vomiting. No diarrhea or constipation. No hematemesis. No hematochezia. GENITOURINARY: No urgency. No frequency. No dysuria. No hematuria. No obstructive symptoms. No discharge. No pain. No significant abnormal bleeding. MUSCULOSKELETAL: No musculoskeletal pain; no joint swelling. NEUROLOGICAL: No headache. No neck pain. No syncope. No seizures. No dizziness. PSYCHIATRIC: Not anxious. No depression. No suicidal thoughts. No homicidal thoughts. SKIN: No rash. No lesions. No wounds. ENDOCRINE: No unexplained weight loss. No weight gain. HEMATOLOGIC/LYMPHATIC: No anemia. No purpura. No petechiae. No prolonged or excessive bleeding. No palpable lymph nodes. PHYSICAL EXAMINATION: GENERAL: The patient is oriented to time, place and person. VITAL SIGNS: Temperature 98.6, pulse 70, respiratory rate 15, BP 130/70. HEENT: Head normocephalic, atraumatic. Eyes: Extraocular muscles are intact. Pupils are equal, round and reactive to light and accommodation. Ears: No lesions. Nose appeared normal. Throat: No exudate or erythema. NECK: Supple. No JVP, no carotid bruit. No lymphadenopathy or thyromegaly. LUNGS: Clear to auscultation. Percussion note normal. Chest symmetrical. HEART: S1, S2, no S3. No murmurs. No cyanosis or clubbing. No ascites. Pulses: Dorsalis pedis and posterior tibial pulses +1 to +2 both sides. ABDOMEN: Soft. Nontender. Bowel sounds active. No CVA tenderness. No mass felt. EXTREMITIES: +1 to +2 pedal edema. No edema of the face noted. Full range of motion of all extremities, equal. NEUROLOGIC: No focal deficit. Cranial nerves II through XII are grossly intact. No headache, no double vision or headache. SKIN: Not dry. Intact. Turgor - normal. LYMPHATIC: No palpable lymph nodes/no lymphedema. MUSCULOSKELETAL: Normal joints with no swelling. Muscle tone is normal. LABS: Hemoglobin 11.2, hematocrit 34, WBC 6,000, normal differential. Creatinine 1.3, BUN 28, potassium 4. ASSESSMENT: 1. CHF SEEMS TO BE UNDER CONTROL 2. EDEMA HAS RESOLVED 3. THE PATIENT HAS AORTIC STENOSIS 4. THE PATIENT HAS GRADE III/ SYSTOLIC MURMUR PLAN: 1. Continue IV Lasix 2. Zaroxolyn 3. Elevate legs 4. Again talked to the patient about assisted but the patient states, "there is no way I am going to go to the assisted, I am going home." The problem at home is that she has declined any help from the family members and she ends up on her feet longer than she should and probably doesn't take her medication as prescribed and she ends up in the hospital with the same problem over and over again. CONDITION: Stable. TIME SPENT: More than 30 minutes. Plan and coordination of the patient's care discussed in the presence of nurse. OLLIE
--- NOTE | 2017-04-26 13:18 | CM.DICTOOL ---
ADMISSION: 04/21/17 11:44 DISCHARGE: 04/26/17 DATE OF SERVICE: 04/26/17 FINAL DIAGNOSIS ACUTE ON CHRONIC CONGESTIVE HEART FAILURE DIGOXIN TOXICITY, RESOLVED LEG EDEMA, CHRONIC SUPERFICIAL LEFT LEG WOUND, MRSA ORGANISM, 04/21/17 PULMONARY EDEMA, CXR 04/21/17 ACUTE RENAL INSUFFICIENCY COPD SEVERE AORTIC STENOSIS MODERATE MITRAL STENOSIS HEART MURMUR, GRADE III/ ATRIAL FIBRILLATION HYPOTENSION DYSLIPIDEMIA HYPOTHYROIDISM GERD H-PYLORI POSITIVE, 06/11 ARTHRITIS ANXIETY PACEMAKER INSERTION LAST VITALS Temp Pulse Resp BP Pulse Ox 97.0 F L 60 17 108/59 L 99 04/26/17 06:00 04/26/17 06:00 04/26/17 06:00 04/26/17 06:00 04/26/17 06:00 ACTIVE MEDICATIONS Acetaminophen (Tylenol) 650 mg PO Q4H PRN PRN Reason: Headache Acetaminophen/Hydrocodone Bitart ([place] 5-325) 1 tab PO QID PRN PRN Reason: Moderate to Severe Pain Last Admin: 04/26/17 08:44 Dose: 1 tab Alprazolam (Xanax) 0.5 mg PO BID PRN PRN Reason: Anxiety/Sleep Last Admin: 04/26/17 08:43 Dose: 0.5 mg Digoxin 125 mcg PO DAILY Fish Oil ([place]-3 Fish Oil) 2,000 mg PO BID ISAURA Last Admin: 04/26/17 08:44 Dose: Not Given Furosemide (Lasix) 40 mg IVP QDAC ISAURA (One additional daily PRN) Last Admin: 04/26/17 05:39 Dose: 40 mg Meclizine HCl (Antivert) 25 mg PO TID PRN PRN Reason: Dizziness Mupirocin (Bactroban) 1 applic TP BID ISAURA (REMAINING SUPPLY TO BE GIVEN TO PATIENT) Last Admin: 04/26/17 08:46 Dose: 1 applic Omeprazole (Prilosec) 20 mg PO QDAC PRN PRN Reason: Indigestion Ondansetron HCl (Zofran Tab) 4 mg PO Q12H PRN PRN Reason: Nausea / Vomiting Last Admin: 04/25/17 06:22 Dose: 4 mg Potassium Chloride (Micro-K Cap) 10 meq PO DAILYWM ISAURA Last Admin: 04/26/17 08:43 Dose: 10 meq Propranolol HCl (Inderal) 40 mg PO BID ISAURA Last Admin: 04/26/17 08:44 Dose: 40 mg Propylthiouracil (Propylthiouracil) 50 mg PO DAILY [facility] Last Admin: 04/26/17 08:43 Dose: 50 mg Valsartan (Diovan) 80 mg PO DAILY [facility] Last Admin: 04/26/17 08:43 Dose: 80 mg Warfarin Sodium (Coumadin) 2 mg PO QPM [facility] Last Admin: 04/25/17 17:48 Dose: 2 mg ALLERGIES ciprofloxacin [From Cipro] Adverse Reaction (Verified 11/09/16 22:13) ciprofloxacin HCl [From Cipro] Adverse Reaction (Verified 11/09/16 22:13) propoxyphene HCl [From Darvon] Adverse Reaction (Verified 11/09/16 22:13) NEW PRESCRIPTIONS: PREDNISONE 10 MG, TAKE ONE TABLET BY MOUTH WITH FOOD FOR 3 DAYS BACTROBAN OINTMENT, CLEANSE AND DRY WOUND TO LEFT LOWER LEG AND APPLY TWICE DAILY. REMAINING HOSPITAL SUPPLY WILL BE PROVIDED TO YOU AT DISCHARGE SMOKING: NONSMOKER DISEASE SPECIFIC EDUCATION: CHF EDEMA DIGOXIN TOXICITY MRSA HOME MEDICATIONS NEW PRESCRIPTIONS ACTIVITY FOLLOW UP LAB REVIEW: 04/26/17 05:02 04/26/17 05:02 04/26/17 05:02: WBC 6.52, RBC 3.78 L, Hgb 11.4 L, Hct 34.8 L, MCV 92.1, MCH 30.2 , MCHC 32.8, RDW Coeff of Megan 15.1 H, Plt Count 120 L, Immature Gran % (Auto) 0.5, Neut % (Auto) 77.7, Lymph % (Auto) 14.7, [place] % (Auto) 6.9, Eos % (Auto) 0.2, Baso % (Auto) 0.0, Immature Gran # (Auto) 0.0, Neut # 5.1, Lymph # 1.0, [place] # 0.5, Eos # 0.0, Baso # 0.0, PT 21.8 H, INR 2.19, Sodium 135 L, Potassium 4.9, Chloride 92 L, Carbon Dioxide 34 H, Anion Gap 13.9, BUN 42 H, Creatinine 1.33 H, Estimated GFR (MDRD) 38.00, BUN/Creatinine Ratio 31.57, Glucose 93, Calcium 9.3, Total Bilirubin 0.95, AST 37, ALT 23, Alkaline Phosphatase 52 L, Total Protein 5.9, Albumin 3.3 L, Globulin 2.6, Albumin/Globulin Ratio 1.27 PLAN: DISCHARGE HOME TODAY RETURN TO SEE DR. DRAKE IN ONE WEEK. PLEASE PHONE HIS OFFICE TO SCHEDULE YOUR FOLLOW UP APPOINTMENT [phone] RESUME YOUR HOME MEDICATIONS PER LIST PROVIDED BY THE NURSING STAFF NEW PRESCRIPTIONS: PREDNISONE 10 MG, TAKE ONE TABLET BY MOUTH WITH FOOD FOR 3 DAYS BACTROBAN OINTMENT, CLEANSE AND DRY WOUND TO LEFT LOWER LEG AND APPLY TWICE DAILY. REMAINING HOSPITAL SUPPLY WILL BE PROVIDED TO YOU AT DISCHARGE ACTIVITY: GET PLENTY OF REST AT HOME. GRADUALLY INCREASE YOUR ACTIVITY LEVEL TOLERATED KEEP YOUR FEET/LEGS ELEVATED FREQUENTLY POSSIBLE DIET: LOW SODIUM HEALTHY HEART SUMMARY: THE PATIENT IS ALERT AND ORIENTED X3. SHE CURRENTLY RESIDES AT HOME. HER SON IS SUPPORTIVE OF HER NEEDS WHEN NECESSARY. SHE USES [employer] [facility] AND HAS A ROLLING WALKER, OXYGEN AND SHOWER CHAIR AT HOME. [facility] WILL BE RESUMED AT DISCHARGE. [facility] WILL NOT REQUIRE ADDITIONAL DME OR HOME HEALTH SERVICES. SHE DESIRES TO RETURN HOME AT DISCHARGE. HER SKIN TURGOR IS INTACT WITH THE EXCEPTION OF A SMALL SUPERFICIAL WOUND TO HER LEFT LOWER EXTREMITY THAT IS RECTANGULAR SHAPED AND MEASURES 2 CM X 4 CM. IT IS DRY AND HEALING WELL. THE CENTER OF THE AREA IS PINK. SURROUNDING TISSUE IS NOT AFFECTED. DURING THIS STAY WE FOUND THE WOUND WAS GROWING MRSA, LIKELY COLONIZED. WE HAVE BEEN APPLYING THE BACTROBAN TWICE DAILY AFTER THOROUGHLY CLEANING AND DRYING THE AREA. THE PATIENT WILL CONTINUE THIS TREATMENT AT HOME. [facility] IS AWARE AND AGREEABLE FOR DISCHARGE TODAY. CURRENT CODE STATUS: FULL CODE CARLEE MARMOLEJO APRN KEVIN DRAKE M.D.
--- NOTE | 2017-04-26 14:54 | PN ---
DATE OF SERVICE: 04/25/17 SUBJECTIVE: 81 year old white female hospitalized with congestive heart failure and generalized edema. The patient's edema particularly is subsiding with 1+ pitting edema on the leg. No edema noted on the upper extremities and the face. She is feeling a lot better. Again, she does not want to go to the halfway. She clearly indicated that she is going to at home. She is oriented to time, place and person. REVIEW OF SYSTEMS: CONSTITUTIONAL: No night sweats. No fatigue, malaise, lethargy. No fever or chills. HEENT: Eyes: No visual changes. No eye pain. No eye discharge. ENT: No runny nose. No epistaxis. No sinus pain. No sore throat. No odynophagia. No congestion. RESPIRATORY: No cough, no congestion. No hemoptysis. No shortness of breath. CARDIOVASCULAR: No angina symptoms. No CHF symptoms. No atypical chest pain for CAD. No palpitations. No orthopnea. GASTROINTESTINAL: No abdominal pain. No nausea or vomiting. No diarrhea or constipation. No hematemesis. No hematochezia. GENITOURINARY: No urgency. No frequency. No dysuria. No hematuria. No obstructive symptoms. No discharge. No pain. No significant abnormal bleeding. MUSCULOSKELETAL: No musculoskeletal pain; no joint swelling. NEUROLOGICAL: No headache. No neck pain. No syncope. No seizures. No dizziness. PSYCHIATRIC: Not anxious. No depression. No suicidal thoughts. No homicidal thoughts. SKIN: No rash. No lesions. No wounds. ENDOCRINE: No unexplained weight loss. No weight gain. HEMATOLOGIC/LYMPHATIC: No anemia. No purpura. No petechiae. No prolonged or excessive bleeding. No palpable lymph nodes. PHYSICAL EXAMINATION: GENERAL: The patient is oriented to time, place and person. VITAL SIGNS: Temperature 97.5, pulse 68, respiratory rate 18, blood pressure 92 /64, pulse ox 93%. HEENT: Head normocephalic, atraumatic. Eyes: Extraocular muscles are intact. Pupils are equal, round and reactive to light and accommodation. Ears: No lesions. Nose appeared normal. Throat: No exudate or erythema. NECK: Supple. No JVD, no carotid bruit. No lymphadenopathy or thyromegaly. LUNGS: Decreased breath sounds, but clear. Percussion note normal. Chest symmetrical. HEART: S1, S2, no S3. No murmurs. No cyanosis or clubbing. No ascites. Pulses: Dorsalis pedis and posterior tibial pulses +1 to +2 both sides. ABDOMEN: Soft. Nontender. Bowel sounds active. No CVA tenderness. No mass felt. EXTREMITIES: Edema. Full range of motion of all extremities, equal. NEUROLOGIC: No focal deficit. Cranial nerves II through XII are grossly intact. No headache, no double vision or headache. SKIN: Not dry. Intact. Turgor - normal. LYMPHATIC: No palpable lymph nodes/no lymphedema. MUSCULOSKELETAL: Normal joints with no swelling. Muscle tone is normal. LABS: Hemoglobin 11.8, hematocrit 36, WBC 10,800 with normal differential. Creatinine 1.3, BUN 42, potassium 4.9. ASSESSMENT: CONGESTIVE HEART FAILURE AND GENERALIZED EDEMA SEEMS TO HAVE RESOLVED. THE PATIENT'S CONGESTIVE HEART FAILURE STABLE. THE PATIENT HAS BILATERAL MITRAL AND AORTIC SEVERE STENOSIS AND SHE IS INOPERABLE. SHE ALSO HAS A PACEMAKER, WHICH IS CAPTURING AND SENSING WELL. PLAN: 1. Continue IV Lasix. 2. Continue diuretic. 3. Again educated about congestive heart failure in detail. The patient's problem is that if she goes home she lives by herself and not able to do activities of daily living, including making food for herself, etc and not taking her medication and probably forgets about it, but she is very stubborn and has declined to go to Assisted Living or halfway. CONDITION: Stable. TIME SPENT: More than 30 minutes. Plan and coordination of the patient's care discussed in the presence of nurse. OLLIE
--- NOTE | 2017-04-27 08:59 | PN ---
DATE OF SERVICE: 04/26/17 SUBJECTIVE: The patient is a 81 year old white female hospitalized with pulmonary edema and congestive heart failure with leg edema. The patient's leg edema +1 pitting still persists but rest of the swelling and edema has subsided. No symptoms of CHF. The patient has decided to go home. The patient was discharged home in stable condition. PHYSICAL EXAMINATION: GENERAL: The patient is , lying/sitting in bed in no distress. VITAL SIGNS: HEENT: Head normocephalic, atraumatic. Eyes: Extraocular muscles are intact. Pupils are equal, round and reactive to light and accommodation. Ears: No lesions. Nose appeared normal. Throat: No exudate or erythema. NECK: Supple. No JVD, no carotid bruit. No lymphadenopathy or thyromegaly. LUNGS: Clear to auscultation. Percussion note normal. Chest symmetrical. HEART: S1, S2, no S3. GRADE II/ Systolic murmur. No cyanosis or clubbing. No ascites. Pulses: Dorsalis pedis and posterior tibial pulses +1 to +2 both sides. ABDOMEN: Soft. Nontender. Bowel sounds active. No CVA tenderness. No mass felt. EXTREMITIES: No edema. Full range of motion of all extremities, equal. NEUROLOGIC: No focal deficit. Cranial nerves II through XII are grossly intact. No headache, no double vision or headache. SKIN: Not dry. Intact. Turgor - normal. LYMPHATIC: No palpable lymph nodes/no lymphedema. MUSCULOSKELETAL: Normal joints with no swelling. Muscle tone is normal. PLAN: 1. Medications discussed. 2. Resume Lasix 40mg twice a day 3. Advised to keep the legs up and cut down on salt intake. The patient was seen and examined with Nurse Practitioner. CONDITION: Stable TIME SPENT: More than 30 minutes. Plan and coordination of the patient's care discussed in the presence of nurse. OLLIE
--- NOTE | 2017-04-27 09:07 | PN ---
04/21/17: Level 5 04/22/17: Intermediate 04/23/17: Intermediate 04/24/17: Intermediate 04/25/17: D as in discharge MTDD
--- NOTE | 2017-05-10 14:53 | DS ---
DATE OF SERVICE: 04/26/17 (The patient was a direct admit) FINAL DIAGNOSIS: 1. ACUTE ON CHRONIC CONGESTIVE HEART FAILURE 2. DIGOXIN TOXICITY, RESOLVED 3. LEG EDEMA, CHRONIC 4. SUPERFICIAL LEFT LEG WOUND, MRSA ORGANISM, 04/21/17 5. PULMONARY EDEMA, CHEST X-RAY 04/21/17 6. ACUTE RENAL INSUFFICIENCY 7. COPD 8. SEVERE AORTIC STENOSIS 9. MODERATE MITRAL VALVE STENOSIS 10. HEART MURMUR, GRADE III/ 11. ATRIAL FIBRILLATION 12. HYPOTENSION 13. DYSLIPIDEMIA 14. HYPOTHYROIDISM 15. GERD 16. H-PYLORI POSITIVE, 06/11 17. ARTHRITIS 18. ANXIETY 19. PACEMAKER INSERTION DISCHARGE INSTRUCTIONS: Followup appointment: See Dr. Villagran in one week. Please phone his office to schedule your followup appointment [phone]. MEDICATIONS AT DISCHARGE: Propylthiouracil 50 mg p.o. daily Meclizine 25 mg p.o. t.i.d. p.r.n. Omeprazole 20 mg p.o. q. d a.c. p.r.n. Zofran 4 mg p.o. q.12 hr p.r.n. Clotrimazole/Betamethasone (Lotrisone) 1 application TP b.i.d. p.r.n. Alprazolam 0.5 mg p.o. b.i.d. p.r.n . Klor-Con 10 mEq p.o. daily [place] 3 Fatty Acids two each p.o. b.i.d. Calcium 600 mg p.o. daily Inderal 40 mg p.o. b.i.d. Valsartan 80 mg p.o. daily Coumadin 2 mg p.o. q.p.m. Furosemide 40 mg p.o. b.i.d. Digoxin 125 mcg p.o. daily NEW PRESCRIPTIONS: Prednisone 10 mg take one tablet by mouth with food for 3 days Bactroban ointment, cleanse and dry wound to left lower leg and apply twice daily. Remaining hospital supply will be provided to you at discharge. DIET INSTRUCTIONS: Low sodium, healthy heart ACTIVITY: Get plenty of rest at home. Gradually increase your activity level as tolerated. Keep your feet/legs elevated as frequently as possible. SMOKING: Nonsmoker DISEASE SPECIFIC EDUCATION: CHF Edema Digoxin Toxicity MRSA Home Medications New prescriptions Activity Followup HOSPITAL COURSE: This is a 81-year-old female who was admitted from our office for congestive heart failure, worsening leg edema and shortness of breath. She presented to our office. She was pale. She had been taking Zaroxolyn for the past two days with no improvement. She was weak. Kidney function was elevated. She was admitted, placed on 40 mg of IV Lasix daily, instructed to keep her legs elevated. She was also put on Zaroxolyn 2.5 mg p.o. daily. Upon admission, it was also found that she had a superficial open area on the left lower extremity , a wound culture was done which showed that this was positive for Staphylococcus and we have been applying Bactroban. On the day of discharge this area is smaller with improving redness, no drainage. During the course of her stay, likely due to elevated kidney function, her digoxin level became too high at 2.28 and this was held until further notice. Over the course of several days, her leg edema slowly improved. She started to be able to be up and about without oxygen. She lost almost 10 lbs during the course of her hospital stay. She also had developed somewhat of a cough and was put on Decadron for the past 3 days. The cough is improving. We will discharge her home on Prednisone 10 mg times the next three days. This morning at discharge, her temprature was 97, heart rate 16, respirations 17, BP 108/59 and pulse ox 99% on room air. She states she was feeling better. This seems to be a reoccurring problem for her as she does have aortic and mitral valve stenosis. She has recurrent CHF and leg edema. She tends to be noncompliant with elevating her legs and her medications at home. She does have extra Lasix for which she can take an extra Lasix if she notices her legs just start swelling at home. It was discussed with her and her family placement in the [facility] for 30 days in order to see if there is any improvement however, patient was strongly against this. We did discuss today that if she is to return to the hospital within the next month or so that she will strongly consider going to the [facility] for a short period. She remained in sinus rhythm with a pacemaker while she was here. She is discharged home today in stable condition. Her INR was 2.19. She will resume her Lasix 40 mg p.o. b.i.d. She is allowed to take an extra Lasix if needed. Low salt diet and CHF was discussed in great detail with the patient. She is instructed to keep her legs elevated when she is sitting at home. We will follow up with her this week in the office. TIME SPENT: More than 60 minutes. OLLIE
== END 2017-04-26 12:10 | disposition home or self-care (01) | DRG 292 ==
LOC: MEDSURG B 11:44
PROVIDERS: ADMIT Internal Medicine; ATTEND Internal Medicine
DX: I50.9 Heart failure, unspecified (principal); J81.1 Chronic pulmonary edema; S81.802A Unspecified open wound, left lower leg, initial encounter; B95.62 Methicillin resistant Staphylococcus aureus infection as the cause of diseases classified elsewhere; R05 Cough; T46.0X5A Adverse effect of cardiac-stimulant glycosides and drugs of similar action, initial encounter; N28.9 Disorder of kidney and ureter, unspecified; J44.9 Chronic obstructive pulmonary disease, unspecified; I35.0 Nonrheumatic aortic (valve) stenosis; I05.0 Rheumatic mitral stenosis; R01.1 Cardiac murmur, unspecified; I48.91 Unspecified atrial fibrillation; I95.9 Hypotension, unspecified; E78.5 Hyperlipidemia, unspecified; E03.9 Hypothyroidism, unspecified; K21.9 Gastro-esophageal reflux disease without esophagitis; F41.9 Anxiety disorder, unspecified; Z79.01 Long term (current) use of anticoagulants; Z79.899 Other long term (current) drug therapy; Z95.0 Presence of cardiac pacemaker; Z91.19 Patient's noncompliance with other medical treatment and regimen
CPT/HCPCS: 36415; 80053; 80162; 81001; 82550; 83874; 84439; 84443; 84484; 85025; 85610; 87070; 87081; 87186; 93005; 93010; 94761; 99223; 99232; 99239

== ENCOUNTER 2017-05-09 10:40 | Outpatient (CLI) ==
[2017-04-30 15:35] VITALS: BMI 25.4
== END 2017-05-09 10:41 | disposition home or self-care (01) ==
LOC: AMBL 10:40
DX: R11.10 Vomiting, unspecified (principal); R53.1 Weakness; I50.9 Heart failure, unspecified; Z95.0 Presence of cardiac pacemaker